=== PATIENT | male | born 1945 | race Caucasian/White ===

== ENCOUNTER 2016-10-12 22:17 | Emergency (ER) | payer SELFPAY ==
[2016-10-12 22:20] VITALS: BP 140/65; PULSE 96; RESP 18; TEMP 98.2; O2SAT 94
== END 2016-10-12 22:30 | disposition left against medical advice (07) ==
LOC: NED 22:17
DX: R50.9 Fever, unspecified (principal); Z53.21 Procedure and treatment not carried out due to patient leaving prior to being seen by health care provider
CPT/HCPCS: 99281

== ENCOUNTER → 2016-11-03 | Day surgery (SDC) | payer MEDICARE ==
[~2016-11-03] MED LIST: ATRO1SOL11 RIGHT EYE; ATROPINE SULFATE 1% OPHT SOLN 2 ML BTL ONE; DEXAMETHASONE SOD PHOS 4 MG/ML VIAL ONE; DOCU1CAP39 PO; EPINEPHrine HCL (1:1000) 1 MG/ML VIAL ONE; EPLE25TA PO; ESCI20TA PO; FLURBIPROFEN 0.03% OPHT SOLN 2.5 ML BTL ONE; IPRASOL NEB; LACTATED RINGER'S 1000 ML INJ 1,000 ML ONE; LEVA750T PO; LORA-361 PO; MIDAZOLAM HCL 2 MG/2 ML VIAL ONE; MONT5CHW2 CHEW; MORP1TAB24 PO; MS C30TA PO; MSIR15 PO; NEOMYCIN/POLYMYXIN/DEXAMETHASONE OPTH OINT 3.5 GM TUBE ONE; ONDANSETRON HCL 4 MG/2 ML VIAL IV PUSH ONE; PHENYLEPHRINE HCL 2.5% OPTH SOLN 2 ML BTL ONE; PRED10 PO; PROPOFOL 200 MG/20 ML AMP IV ONE; SODIUM CHLORIDE 0.9% INJ 10 ML ONE; TETRACAINE 0.5% OPTH SOLN 4 ML BTL ONE; TORS20TA PO; TRIAMCINOLONE ACETONIDE 40 MG/ML VIAL ONE; TROPICAMIDE 1% OPHT SOLN 15 ML BTL ONE; [UNRECOGNIZED DRUG - CODE] PO; ceFAZolin INJ 1,000 MG VIAL ONE
--- NOTE | 2017-01-28 20:06 | MP ---
cc: ALEXANDER PRADO MD DATE OF SURGERY: 11/08/2016. PREOPERATIVE DIAGNOSIS: Retinal detachment, right eye. POSTOPERATIVE DIAGNOSIS: Retinal detachment, right eye. OPERATION: Pars plana vitrectomy, membrane peeling, endolaser gas/fluid exchange, right eye. SURGEON: Alexander Prado MD ANESTHESIA: MAC. COMPLICATIONS: None. DESCRIPTION OF THE PROCEDURE IN DETAIL: After informed consent was obtained, the patient was given retrobulbar anesthesia. The patient was then brought to the operating room and prepared and draped in the usual sterile fashion. A wire lid speculum was placed in the patient's right eye. 23-gauge vitrectomy cannulas were then placed in the lower temporal, superotemporal and supranasal quadrants 3 mm posterior to the corneoscleral limbus. An infusion cannula was placed lower temporally. Core vitrectomy was then performed. There was already a posterior vitreous detachment. A vitrectomy was carried out as far as possible to the vitreous base taking care to remove vitreous from around the retinal break. A complete air-fluid exchange was then performed through a posterior retinotomy. The retina flattened nicely. Endolaser was used to treat the retinal breaks as well as the vitreous base for 360 degrees and the retinotomy. The air was then exchanged for a 16% C3F8. The three vitrectomy cannulas were then removed. Subconjunctival injections of dexamethasone and Ancef were placed. An Atropine drop, Maxitrol and a patch and shield were then applied. The patient tolerated the procedure well. There were no complications. He will position appropriately over the next week. [facility]. Alexander Prado MD TAB/JCC /11:27 AM /8:04 PM
== END | disposition home or self-care (01) ==
LOC: ESDC 06:01
PROVIDERS: ATTEND Ophthalmology Retina Specialist
DX: H33.011 Retinal detachment with single break, right eye (principal)
CPT/HCPCS: 00145; 67108; J0171; J0690; J1100; J2250; J2405; J3010; J7120; J3301

== ENCOUNTER 2016-12-01 21:00 | Inpatient (IN) | payer MEDICARE ==
[~2016-12-01] VITALS: Ht 182.9 cm; Wt 72.5 kg
[2016-12-01 21:10] VITALS: BP 135/63; PULSE 82; RESP 20; TEMP 98.1; O2SAT 89
[2016-12-01] MEDS ORDERED: SODIUM CHLOR 0.9% 1000 ML INJ 1,000 ML IV ONE (21:15)
[2016-12-01 21:16] VITALS: O2SAT 96
[2016-12-01] MEDS ORDERED: TORS20TA PO (21:22)
[2016-12-01] MEDS ORDERED: MS C30TA PO (21:22)
[2016-12-01] MEDS ORDERED: MONT5CHW2 CHEW (21:22)
[2016-12-01] MEDS ORDERED: EPLE25TA PO (21:22)
[2016-12-01] MEDS ORDERED: [UNRECOGNIZED DRUG - CODE] PO (21:22)
[2016-12-01] MEDS ORDERED: ATRO1SOL11 RIGHT EYE (21:22)
[2016-12-01] MEDS ORDERED: ESCI20TA PO (21:22)
[2016-12-01] MEDS ORDERED: PRED10 PO (21:22)
--- NOTE | 2016-12-01 21:23 | PD ---
HPI Chief Complaint: Altered Mental Status Time Seen by Provider: 21:11 Travel History International Travel<30 days: No Contact w/Intl Traveler<30days: No Traveled to known affect area: No History of Present Illness HPI 70-year-old male was brought in by his altered mental status. Patient started complaining of headache and confusion since last night. Patient started having a productive cough today. Patient states that headache is aching headache diffuse over the head. Patient denies any visual change. Patient recently had right eye surgery and has been putting atropine eyedrops to the right eye. Patient denies any chest pain or shortness of breath. Patient denies abdominal pain. Patient denies any focal weakness or numbness of extremity. Patient why states the patient fell yesterday. Patient has frequent fall recently. Patient on aspirin 81 mg daily. Patient denies history hypertension. Patient has history of diet-controlled diabetes. Patient denies any dyslipidemia. Patient has history of CAD status post CABG and aortic valve surgery. Patient has history of CHF and chronic leg swelling. Patient was advised to withhold Lasix for the past several days secondary to eye surgery. [facility] Social History Tobacco Use: No Allergies-Medications (Allergen,Severity, Reaction): Coded Allergies: Bactrim (Verified Allergy, Severe, 12/01/16) Penicillin (Verified Allergy, Severe, 12/01/16) Tramadol (Verified Allergy, Severe, 12/01/16) Reported Meds & Prescriptions Reported Meds & Active Scripts Active Reported Singulair (Montelukast Sodium) 5 Mg Chew Unknown Dose CHEW DAILY Prednisone 10 Mg Tab 10 Mg PO DAILY Torsemide 20 Mg Tab 20 Mg PO DAILY Eplerenone 25 Mg Tab 25 Mg PO DAILY Dehydroepiandrosterone Powder (Prasterone Powder) 1 Pow Pow 50 Mg PO BID Atropine Opth Drops 1% Soln 1 Drop RIGHT EYE TID Escitalopram (Escitalopram Oxalate) 20 Mg Tab 20 Mg PO DAILY Ms Contin (Morphine Sulfate) 30 Mg Tab 30 Mg PO TID Review of Systems General / Constitutional: No: Fever Eyes: No: Visual changes HENT: Positive: Headaches Cardiovascular: No: Chest Pain or Discomfort Respiratory: Positive: Cough, No: Shortness of Breath Gastrointestinal: No: Abdominal Pain Genitourinary: No: Dysuria Musculoskeletal: No: Pain Skin: No Rash Neurologic: No: Weakness Psychiatric: No: Depression Endocrine: No: Polydipsia Hematologic/Lymphatic: No: Easy Bruising Physical Exam Narrative GENERAL: Well-nourished, well-developed patient. SKIN: Warm and dry. HEAD: Normocephalic. EYES: No scleral icterus. No injection or drainage. Right pupil dilated 4 mm sluggish reactive. Left pupil 2 mm reactive. NECK: Supple, trachea midline. No JVD or lymphadenopathy. CARDIOVASCULAR: Regular rate and rhythm without murmurs, gallops, or rubs. RESPIRATORY: Breath sounds equal bilaterally. No accessory muscle use. GASTROINTESTINAL: Abdomen soft, non-tender, nondistended. MUSCULOSKELETAL: No cyanosis, or edema. BACK: Nontender without obvious deformity. No CVA tenderness. Neurologic exam: Patient's lethargic however answer questions appropriately. Patient moves all extremity. No obvious focal neurological deficit. Data Data Last Documented VS Vital Signs Date Time Temp Pulse Resp B/P Pulse Ox O2 Delivery O2 Flow Rate FiO2 12/01/16 22:07 82 18 127/62 95 Nasal Cannula 4 12/01/16 21:10 98.1 Orders Electrocardiogram (12/01/16 21:11) Complete Blood Count With Diff (12/01/16 21:11) Comprehensive Metabolic Panel (12/01/16 21:11) Creatine Kinase (Cpk) (12/01/16 21:11) Troponin I (12/01/16 21:11) B-Type Natriuretic Peptide (12/01/16 21:11) Prothrombin Time / Inr (Pt) (12/01/16 21:11) Act Partial Throm Time (Ptt) (12/01/16 21:11) Blood Culture (12/01/16 21:11) Urinalysis - C+S If Indicated (12/01/16 21:11) Thyroid Stimulating Hormone (12/01/16 21:11) Influenzae A/B Antigen (12/01/16 21:11) Chest, Single Ap (12/01/16 21:11) Ct Brain W/O Iv Contrast(Rout) (12/01/16 21:11) Iv Access Insert/Monitor (12/01/16 21:11) Ecg Monitoring (12/01/16 21:11) Oximetry (12/01/16 21:11) Urinary Catheter Insert/Apply (12/01/16 21:11) Lactic Acid (12/01/16 21:14) Sodium Chlor 0.9% 1000 Ml Inj (Ns 1000 M (12/01/16 21:15) Aztreonam Inj (Azactam Inj) (12/01/16 22:30) Vancomycin Inj (Vancomycin Inj) (12/01/16 22:30) Admit Order (Ed Use Only) (12/01/16 22:50) Labs Laboratory Tests Test 12/01/16 12/01/16 21:10 21:28 White Blood Count 9.7 TH/MM3 Red Blood Count 6.12 MIL/MM3 Hemoglobin 18.1 GM/DL Hematocrit 55.6 % Mean Corpuscular Volume 91.0 FL Mean Corpuscular Hemoglobin 29.6 PG Mean Corpuscular Hemoglobin 32.5 % Concent Red Cell Distribution Width 16.6 % Platelet Count 179 TH/MM3 Mean Platelet Volume 10.0 FL Neutrophils (%) (Auto) 77.0 % Lymphocytes (%) (Auto) 7.7 % Monocytes (%) (Auto) 11.4 % Eosinophils (%) (Auto) 3.2 % Basophils (%) (Auto) 0.7 % Neutrophils # (Auto) 7.5 TH/MM3 Lymphocytes # (Auto) 0.7 TH/MM3 Monocytes # (Auto) 1.1 TH/MM3 Eosinophils # (Auto) 0.3 TH/MM3 Basophils # (Auto) 0.1 TH/MM3 CBC Comment DIFF FINAL Differential Comment Prothrombin Time 13.7 SEC Prothromb Time International 1.2 RATIO Ratio Activated Partial 34.1 SEC Thromboplast Time Sodium Level 139 MEQ/L Potassium Level 4.1 MEQ/L Chloride Level 99 MEQ/L Carbon Dioxide Level 31.3 MEQ/L Anion Gap 9 MEQ/L Blood Urea Nitrogen 20 MG/DL Creatinine 1.53 MG/DL Estimat Glomerular Filtration 45 ML/MIN Rate Random Glucose 86 MG/DL Lactic Acid Level 1.3 mmol/L Calcium Level 9.2 MG/DL Total Bilirubin 1.2 MG/DL Aspartate Amino Transf 15 U/L (AST/SGOT) Alanine Aminotransferase 33 U/L (ALT/SGPT) Alkaline Phosphatase 95 U/L Total Creatine Kinase 88 U/L Troponin I LESS THAN 0.02 NG/ML B-Type Natriuretic Peptide 125 PG/ML Total Protein 7.8 GM/DL Albumin 3.4 GM/DL Thyroid Stimulating Hormone 3.110 uIU/ML 3rd Gen Urine Color YELLOW Urine Turbidity CLEAR Urine pH 5.0 Urine Specific [place] 1.012 Urine Protein NEG mg/dL Urine Glucose (UA) NEG mg/dL Urine Ketones NEG mg/dL Urine Occult Blood NEG Urine Nitrite NEG Urine Bilirubin NEG Urine Urobilinogen LESS THAN 2.0 MG/DL Urine Leukocyte Esterase TRACE Urine WBC 1 /hpf Urine Squamous Epithelial <1 /hpf Cells Urine Amorphous Sediment OCC Urine Hyaline Casts 1 /lpf Microscopic Urinalysis Comment CULT NOT INDICATED MDM Medical Decision Making Medical Screen Exam Complete: Yes Emergency Medical Condition: Yes Interpretation(s) EKG shows sinus rhythm with short IL interval. Nonspecific ST-T wave change. Incomplete right bundle-branch block. 22:12 PM. Last Impressions Head CT 12/01/162110 Signed Impressions: Service Date/Time: Thursday, December 01, 2016 21:37 - CONCLUSION: No acute intracranial findings. Rohit Parker MD Chest X-Ray 12/01/162110 Signed Impressions: Service Date/Time: Thursday, December 01, 2016 21:35 - CONCLUSION: Right base airspace consolidation and vascular congestion and diffuse interstitial prominence. Rohit Parker MD 22:13 PM. CBC WBC 9.7. Hemoglobin 18.1 hematocrit 55.6. 77 neutrophil. BUN 20. Creatinine 1.53. Lactic acid 1.3. INR 1.2. UA is negative. Differential Diagnosis Differential diagnosis including sepsis, dehydration, electrolyte imbalance, TIA , CVA, intracranial hemorrhage. Narrative Course 70-year-old male with altered mental status, confusion, coughing. Normal saline solution 1 L IV bolus. Patient has history CHF, we will be careful with IV fluid. Vancomycin 1 g IV. Azactam 1 g IV. Diagnosis Primary Impression: Pneumonia Qualified Code: J18.1 - Pneumonia of right lower lobe due to infectious organism Additional Impressions: Sepsis Qualified Code: A41.9 - Sepsis, due to unspecified organism Renal insufficiency Admitting Information Admitting Physician Requests: Admit Mark Aguilar MD Dec 01, 2016 21:23
[2016-12-01 21:34] LABS: AUTOMATED NEUTROPHIL # 7.5 TH/MM3 (1.8-7.7); BASOPHIL # 0.1 TH/MM3 (0-0.2); BASOPHIL % 0.7 % (0.0-2.0); EOSINOPHIL # 0.3 TH/MM3 (0-0.4); EOSINOPHIL % 3.2 % (0.0-4.0); HEMATOCRIT 55.6 % (39.0-51.0); HEMO FLAGS DIFF FINAL; LYMPH % 7.7 % (9.0-44.0); LYMPHOCYTE # 0.7 TH/MM3 (1.0-4.8); MEAN CORPUSCULAR HEMOGLOBIN 29.6 PG (27.0-34.0); MEAN CORPUSCULAR HGB CONC 32.5 % (32.0-36.0); MONO % 11.4 % (0.0-8.0); PLATELET COUNT 179 TH/MM3 (150-450); RED BLOOD COUNT 6.12 MIL/MM3 (4.50-5.90); RED CELL DISTRIBUTION WIDTH 16.6 % (11.6-17.2); WHITE BLOOD COUNT 9.7 TH/MM3 (4.0-11.0)
[2016-12-01 21:43] LABS: APTT (PATIENT) 34.1 SEC (24.3-30.1); INTERNATIONAL NORMALIZED RATIO 1.2 RATIO; PROTHROMBIN TIME - PATIENT 13.7 SEC (9.8-11.6)
[2016-12-01 21:44] LABS: ANION GAP 9 MEQ/L (5-15); AST (GOT) 15 U/L (15-37); BICARBONATE 31.3 MEQ/L (21.0-32.0); BLOOD UREA NITROGEN 20 MG/DL (7-18); CHLORIDE 99 MEQ/L (98-107); GLOMERULAR FILTRATION RATE 45 ML/MIN (>89); POTASSIUM 4.1 MEQ/L (3.5-5.1); SODIUM (NA) 139 MEQ/L (136-145)
--- NOTE | 2016-12-01 21:48 | RADRPT ---
EXAM DATE/TIME: 12/01/2016 21:35 [facility] COMPARISON: No previous studies available for comparison. INDICATIONS : SOB MEDICAL HISTORY : None. Fall. SURGICAL HISTORY : CABG. ENCOUNTER: Initial ACUITY: 1 day PAIN SCORE: 4/10 LOCATION: chest FINDINGS: There is consolidation at the right base obscured right diaphragm. Vascular congestion and interstiti al prominence is present throughout the lungs elsewhere. Cardiac contours are grossly satisfactory. T here has been previous sternotomy. CONCLUSION: Right base airspace consolidation and vascular congestion and diffuse interstitial prominence. Rohit Parker MD on December 01, 2016 at 21:46 Board Certified Radiologist. This report was verified electronically.
[2016-12-01 21:54] LABS: BLOOD, URINE NEG (NEG); COMMENT (UR) CULT NOT INDICATED; CULTURE IF INDICATED CULT NOT INDICATED; GLUCOSE,URINE NEG (NEG); HYALINE CAST, URINE 1 /lpf (RARE); KETONE, URINE NEG (NEG); NITRITE,URINE NEG (NEG); SQUAMOUS EPITHELIAL CELL URINE <1 /hpf (0-5); URINE COLOR YELLOW (YELLW/STRAW)
[2016-12-01 21:55] LABS: ALKALINE PHOSPHATASE 95 U/L (45-117); ALT (GPT) 33 U/L (12-78); TOTAL BILIRUBIN ADULT 1.2 MG/DL (0.2-1.0)
--- NOTE | 2016-12-01 21:59 | RADRPT ---
EXAM DATE/TIME: 12/01/2016 21:37 [facility] COMPARISON: No previous studies available for comparison. INDICATIONS : Altered mental status. RADIATION DOSE: 56.35 CTDIvol (mGy) MEDICAL HISTORY : Non-responsive. SURGICAL HISTORY : Non-responsive. ENCOUNTER: Initial ACUITY: 1 day PAIN SCALE: Non-responsive LOCATION: cranial TECHNIQUE: Multiple contiguous axial images were obtained of the head. Using automated exposure control and adj ustment of the mA and/or kV according to patient size, radiation dose was kept as low as reasonably a chievable to obtain optimal diagnostic quality images. FINDINGS: The ventricles are symmetric and normal. No abnormal extra-axial fluid collections are identified. Th ere is no evidence of intracranial hemorrhage or mass. There is nothing to suggest acute infarction. Chronic appearing mucosal disease in the facial sinuses. There is air in the right globe. CONCLUSION: No acute intracranial findings. Rohit Parker MD on December 01, 2016 at 21:55 Board Certified Radiologist. This report was verified electronically.
[2016-12-01 22:07] VITALS: BP 127/62; PULSE 82; RESP 18; O2SAT 95
[2016-12-01 22:16] LABS: CREATINE KINASE 88 U/L (39-308)
[2016-12-01] MEDS ORDERED: VANCOMYCIN INJ 1,000 MG in SODIUM CHLOR 0.9% 250 ML INJ 250 ML IV ONE (22:30)
[2016-12-01] MEDS ORDERED: AZTREONAM INJ 1,000 MG in SODIUM CHLORIDE 0.9% INJ 100 ML IV ONE (22:30)
[2016-12-01] MEDS ORDERED: SODIUM CHLORIDE 0.9% FLUSH 10 ML FLUSH IVF PRN (23:00)
[2016-12-01] MEDS ORDERED: ONDANSETRON HCL 4 MG/2 ML VIAL IV PRN (23:00)
[2016-12-01 23:03] VITALS: O2SAT 98
[2016-12-01] MEDS ORDERED: Vancomycin Consult Pharmacy 1 EA OTHER SCH (23:30)
--- NOTE | 2016-12-01 23:42 | HHI.HP ---
HPI Service [facility] Hospitalists Primary Care Physician Rohit Lobo M.D. Admission Diagnosis pneumonia. Sepsis. Renal insufficiency. Chief Complaint: change in mental status with congestion 2 days Travel History International Travel<30 Days: No Contact w/Intl Traveler <30 Da: No Traveled to Known Affected Are: No History of Present Illness 70-year-old male was brought in by his altered mental status. Patient started complaining of headache and confusion since last night. Patient started having a productive cough today. Patient states that headache is aching headache diffuse over the head. Patient denies any visual change. Patient recently had right eye surgery and has been putting atropine eyedrops to the right eye. Patient denies any chest pain or shortness of breath. Patient denies abdominal pain. Patient denies any focal weakness or numbness of extremity. Patient why states the patient fell yesterday. Patient has frequent fall recently. Patient on aspirin 81 mg daily. Patient denies history hypertension. Patient has history of diet-controlled diabetes. Patient denies any dyslipidemia. Patient has history of CAD status post CABG and aortic valve surgery. Patient has history of CHF and chronic leg swelling. Patient was advised to withhold Lasix for the past several days secondary to eye surgery. In er had chest xray suggesting pneumonia with some congestion bnp was normal and diuretic was on hold due to recent eye surgery. Review of Systems ROS Limitations: Altered Mental Status Respiratory: COMPLAINS OF: Cough Past Family Social History Past Medical History cad,chf,chronic edema,post tramatic stress syndrome allergies Past Surgical History cabs,aortic valve surgery Reported Medications Singulair (Montelukast Sodium) 5 Mg Chew Unknown Dose CHEW DAILY Prednisone 10 Mg Tab 10 Mg PO DAILY Torsemide 20 Mg Tab 20 Mg PO DAILY Eplerenone 25 Mg Tab 25 Mg PO DAILY Dehydroepiandrosterone Powder (Prasterone Powder) 1 Pow Pow 50 Mg PO BID Atropine Opth Drops 1% Soln 1 Drop RIGHT EYE TID Escitalopram (Escitalopram Oxalate) 20 Mg Tab 20 Mg PO DAILY Ms Contin (Morphine Sulfate) 30 Mg Tab 30 Allergies: Coded Allergies: Bactrim (Verified Allergy, Severe, 12/01/16) Penicillin (Verified Allergy, Severe, 12/01/16) Tramadol (Verified Allergy, Severe, 12/01/16) Social History NS ND Physical Exam Vital Signs Vital Signs Date Time Temp Pulse Resp B/P Pulse Ox O2 Delivery O2 Flow Rate FiO2 12/01/16 23:03 98 Nasal Cannula 4.00 12/01/16 22:07 82 18 127/62 95 Nasal Cannula 4 12/01/16 21:16 96 Nasal Cannula 3 12/01/16 21:10 98.1 82 20 135/63 89 Room Air Physical Exam GENERAL: This is a well-nourished, well-developed patient, in no apparent distress. SKIN: No rashes, ecchymoses or lesions. Cool and dry. HEAD: Atraumatic. Normocephalic. No temporal or scalp tenderness. EYES: Pupils equal round and reactive. Extraocular motions intact. No scleral icterus. No injection or drainage. ENT: Nose without bleeding, purulent drainage or septal hematoma. Throat without erythema, tonsillar hypertrophy or exudate. Uvula midline. Airway patent. NECK: Trachea midline. No JVD or lymphadenopathy. Supple, nontender, no meningeal signs. CARDIOVASCULAR: Regular rate and rhythm without murmurs, gallops, or rubs. RESPIRATORY: Decrease breath sounds slight rales bases GASTROINTESTINAL: Abdomen soft, non-tender, nondistended. No hepato-splenomegaly , or palpable masses. No guarding. MUSCULOSKELETAL: Extremities without clubbing, cyanosis, or edema. No joint tenderness, effusion, or edema noted. No calf tenderness. Negative Homans sign bilaterally. NEUROLOGICAL: Awake and alert. Cranial nerves II through XII intact. Motor and sensory grossly within normal limits. Five out of 5 muscle strength in all muscle groups. Normal speech. Laboratory Laboratory Tests Test 12/01/16 12/01/16 21:10 21:28 White Blood Count 9.7 Red Blood Count 6.12 Hemoglobin 18.1 Hematocrit 55.6 Mean Corpuscular Volume 91.0 Mean Corpuscular Hemoglobin 29.6 Mean Corpuscular Hemoglobin 32.5 Concent Red Cell Distribution Width 16.6 Platelet Count 179 Mean Platelet Volume 10.0 Neutrophils (%) (Auto) 77.0 Lymphocytes (%) (Auto) 7.7 Monocytes (%) (Auto) 11.4 Eosinophils (%) (Auto) 3.2 Basophils (%) (Auto) 0.7 Neutrophils # (Auto) 7.5 Lymphocytes # (Auto) 0.7 Monocytes # (Auto) 1.1 Eosinophils # (Auto) 0.3 Basophils # (Auto) 0.1 CBC Comment DIFF FINAL Differential Comment Prothrombin Time 13.7 Prothromb Time International 1.2 Ratio Activated Partial 34.1 Thromboplast Time Sodium Level 139 Potassium Level 4.1 Chloride Level 99 Carbon Dioxide Level 31.3 Anion Gap 9 Blood Urea Nitrogen 20 Creatinine 1.53 Estimat Glomerular Filtration 45 Rate Random Glucose 86 Lactic Acid Level 1.3 Calcium Level 9.2 Total Bilirubin 1.2 Aspartate Amino Transf 15 (AST/SGOT) Alanine Aminotransferase 33 (ALT/SGPT) Alkaline Phosphatase 95 Total Creatine Kinase 88 Troponin I LESS THAN 0.02 B-Type Natriuretic Peptide 125 Total Protein 7.8 Albumin 3.4 Thyroid Stimulating Hormone 3.110 3rd Gen Urine Color YELLOW Urine Turbidity CLEAR Urine pH 5.0 Urine Specific [place] 1.012 Urine Protein NEG Urine Glucose (UA) NEG Urine Ketones NEG Urine Occult Blood NEG Urine Nitrite NEG Urine Bilirubin NEG Urine Urobilinogen LESS THAN 2.0 Urine Leukocyte Esterase TRACE Urine WBC 1 Urine Squamous Epithelial <1 Cells Urine Amorphous Sediment OCC Urine Hyaline Casts 1 Microscopic Urinalysis Comment CULT NOT INDICATED Date/Time Procedure Status Source Growth 12/01/16 21:15 Aerobic Blood Culture Received Blood Peripheral Pending 12/01/16 21:15 Anaerobic Blood Culture Received Blood Peripheral Pending Result Diagram: 12/01/16210912/01/162109 Imaging Last [address] 12/01/162110 Signed Impressions: Service Date/Time: Thursday, December 01, 2016 21:37 - CONCLUSION: No acute intracranial findings. Rohit Parker MD Chest X-Ray 12/01/162110 Signed Impressions: Service Date/Time: Thursday, December 01, 2016 21:35 - CONCLUSION: Right base airspace consolidation and vascular congestion and diffuse interstitial prominence. Rohit Parker MD Course in er started on IV azactam and vancomycin allergic to pcn Assessment and Plan Problem List: (1) Pneumonia Status: Acute Plan: start antibiotics blood cultures ID evaluation (2) Sepsis Status: Acute Plan: by criteria blood cultures and urine ordered (3) Renal insufficiency Status: Acute Plan: mild renal insuff will follow up labs Assessment and Plan further plan as case progresses Code Status full Discussed Condition With patient Physician Certification 2 Midnight Certification Type: Admission for Inpatient Services Order for Inpatient Services The services are ordered in accordance with Medicare regulations or non- Medicare payer requirements, as applicable. In the case of services not specified as inpatient-only, they are appropriately provided as inpatient services in accordance with the 2-midnight benchmark. Estimated LOS (days): 2 2 days is the estimated time the patient will need to remain in the hospital, assuming treatment plan goals are met and no additional complications. Post-Hospital Plan: Not yet determined Problem Qualifiers (1) Pneumonia: Qualified Code: J18.1 - Pneumonia of right lower lobe due to infectious organism (2) Sepsis: Qualified Code: A41.9 - Sepsis, due to unspecified organism Raimundo Foote MD Dec 01, 2016 23:42
[2016-12-01 23:49] VITALS: BP 96/50; PULSE 87; RESP 18; O2SAT 95
[2016-12-02] VITALS (8 sets, daily range): BP systolic 90–117; BP diastolic 52–66; PULSE 75–95; RESP 17–21; TEMP 96–98.6; O2SAT 92–96
[2016-12-02] MEDS ORDERED: VANCOMYCIN 1,000 MG/NS 250 ML IV ONE ×2 (00:30)
[2016-12-02] MEDS: MORPHINE SULFATE 30 MG CONTROLLED RELEASE TAB PO SCH ×3 (05:49→22:26)
[2016-12-02 07:36] LABS: AUTOMATED NEUTROPHIL # 6.9 TH/MM3 (1.8-7.7); BASOPHIL # 0.1 TH/MM3 (0-0.2); BASOPHIL % 0.7 % (0.0-2.0); EOSINOPHIL # 0.3 TH/MM3 (0-0.4); EOSINOPHIL % 3.7 % (0.0-4.0); HEMATOCRIT 47.3 % (39.0-51.0); HEMO FLAGS DIFF FINAL; LYMPH % 6.8 % (9.0-44.0); LYMPHOCYTE # 0.6 TH/MM3 (1.0-4.8); MEAN CELL VOLUME 90.6 FL (80.0-100.0); MEAN CORPUSCULAR HEMOGLOBIN 29.5 PG (27.0-34.0); MEAN CORPUSCULAR HGB CONC 32.6 % (32.0-36.0); MONO % 12.6 % (0.0-8.0); NEUT % 76.2 % (16.0-70.0); PLATELET COUNT 155 TH/MM3 (150-450); RED BLOOD COUNT 5.23 MIL/MM3 (4.50-5.90); RED CELL DISTRIBUTION WIDTH 16.7 % (11.6-17.2); WHITE BLOOD COUNT 9.1 TH/MM3 (4.0-11.0)
[2016-12-02 08:08] LABS: BICARBONATE 30.4 MEQ/L (21.0-32.0); POTASSIUM 4.2 MEQ/L (3.5-5.1)
[2016-12-02] MEDS: SODIUM CHLORIDE 0.9% FLUSH 10 ML FLUSH IV FLUSH SCH ×2 (09:13→22:30)
[2016-12-02] MEDS: ESCITALOPRAM OXALATE 20 MG TAB PO SCH (09:14)
[2016-12-02] MEDS: EPLERENONE 25 MG TAB PO SCH (09:14)
[2016-12-02] MEDS: ATROPINE SULFATE 1% OPHT SOLN 2 ML BTL RIGHT EYE SCH ×3 (09:14→17:17)
[2016-12-02] MEDS: TORSEMIDE 20 MG TAB PO SCH (09:14)
--- NOTE | 2016-12-02 09:45 | HHI.PR ---
Subjective Remarks pt admits to cough. weakness. h/a and body aches. had recent right eye surgery. Objective Vitals somewhat lethargic. but arousable oriented to place. follows commands neck supple. heart reg lung basilar crackles abd s/nt ext chronic stasis change and 2plus edema Vital Signs Date Time Temp Pulse Resp B/P Pulse Ox O2 Delivery O2 Flow Rate FiO2 12/02/16 08:00 96.2 75 20 102/57 92 12/02/16 04:50 96.1 81 21 101/52 93 12/02/16 02:20 86 17 117/66 96 Nasal Cannula 3 12/01/16 23:49 87 18 96/50 95 Nasal Cannula 3 12/01/16 23:03 98 Nasal Cannula 4.00 12/01/16 22:07 82 18 127/62 95 Nasal Cannula 4 12/01/16 21:16 96 Nasal Cannula 3 12/01/16 21:10 98.1 82 20 135/63 89 Room Air 12/01/16 12/01/16 12/02/16 15:00 23:00 07:00 Intake Total 120 ml Output Total 650 ml Balance -530 ml Intake Oral 120 ml Output Urine Total 650 ml Result Diagram: 12/02/1616 12/02/1616 Imaging Last [address] 12/01/162110 Signed Impressions: Service Date/Time: Thursday, December 01, 2016 21:37 - CONCLUSION: No acute intracranial findings. Rohit Parker MD Chest X-Ray 12/01/162110 Signed Impressions: Service Date/Time: Thursday, December 01, 2016 21:35 - CONCLUSION: Right base airspace consolidation and vascular congestion and diffuse interstitial prominence. Rohit Parker MD A/P Problem List: (1) Altered mental status Status: Acute Plan: Pt is 70 yo presents with cough /body aches and AMS. was apparently hold diuretics for a right eye surgery. hx for cad/cabg/chf found to have simba improved today admitted last night for lung infiltrate concerning for pna. appearance could also be pulmonary edema. he was started on abx to cover CAP. his diuretics resumed resume diet this AM unclear why prednisone on his med list. ?asthma.(she is on singulair) repeat cxr in AM echo I will review cp outpt pharmacy list/echo/pft/notes (2) Pneumonia Status: Acute Plan: see above (3) CHF (congestive heart failure) Status: Chronic Plan: see above (4) CAD (coronary artery disease) Status: Chronic Plan: see above (5) SIMBA (acute kidney injury) Status: Acute Plan: see above Problem Qualifiers (1) Pneumonia: Qualified Code: J18.1 - Pneumonia of right lower lobe due to infectious organism Valentin Mas MD Dec 02, 2016 09:45
[2016-12-02] MEDS ORDERED: VANCOMYCIN INJ 1,000 MG in SODIUM CHLOR 0.9% 250 ML INJ 250 ML IV SCH (10:00)
[2016-12-02] MEDS ORDERED: LEVOFLOXACIN 500 MG TAB PO ONE (10:00)
[2016-12-02] MEDS ORDERED: AZTREONAM INJ 1,000 MG in SODIUM CHLORIDE 0.9% INJ 100 ML IV SCH (11:00)
[2016-12-02] MEDS ORDERED: VANCOMYCIN 1,000 MG/NS 250 ML IV SCH ×2 (13:00)
--- NOTE | 2016-12-02 15:52 | EKG ---
Date Performed: 12/01/2016 Time Performed: 21:13:10 PTAGE: 70 years EKG: Sinus rhythm WITH SHORT UT INTERVAL LEFT ATRIAL ENLARGEMENT INDETERMINATE AXIS INCOMPLETE RIGHT BUNDLE BRANCH BLO CK POSSIBLE RIGHT VENTRICULAR HYPERTROPHY MODERATE ST DEPRESSION ABNORMAL ECG NO PREVIOUS TRACING DOCTOR: Omar Reid Interpretating Date/Time 12/02/2016 15:48:10
--- NOTE | 2016-12-02 20:03 | EC ---
Study Study Date:12/02/2016 STUDY CONCLUSIONS SUMMARY - Left ventricle: The cavity size was normal. Wall thickness was normal. Systolic function was normal. The estimated ejection fraction was 65%. Wall motion was normal; there were no regional wall motion abnormalities. - Aortic valve: A bioprosthesis was present. - Mitral valve: Mild regurgitation. - Left atrium: The atrium was moderately dilated. - Right ventricle: The cavity size was dilated. Wall thickness was normal. RV dysfunction. - Tricuspid valve: Mild regurgitation. - Pulmonary arteries: Systolic pressure was moderately to severely increased. PA peak pressure: 70mm Hg (S). If LV function is below 40, please consider prescribing an ACEI or ARB or document rationale for non-use. PROCEDURE DATA STUDY STATUS: Elective. Procedure: Transthoracic echocardiography. Image quality was good. Scanning was performed from the parasternal, apical, and subcostal acoustic windows. Study completion: The patient tolerated the procedure well. Transthoracic echocardiography. M-mode, complete 2D, complete spectral Doppler, and color Doppler. Height: Height: 72in. Weight: Weight: 174.6lb. Body mass index: BMI: 23.7kg/m^2. Body surface area: BSA: 2.01m^2. Patient status: Inpatient. CARDIAC ANATOMY LEFT VENTRICLE: The cavity size was normal. Wall thickness was normal. Systolic function was normal. The estimated ejection fraction was 65%. Wall motion was normal; there were no regional wall motion abnormalities. AORTIC VALVE: A bioprosthesis was present. Doppler: Transvalvular velocity was within the normal range. There was no stenosis. No regurgitation. Valve area: 0.79cm^2(VTI). Indexed valve area: 0.39cm^2/m^2 (VTI). Valve area: 0.82cm^2 (Vmax). Indexed valve area: 0.41cm^2/m^2 (Vmax). Mean gradient: 25mm Hg (S). Peak gradient: 43mm Hg (S). AORTA: Aortic root: The aortic root was normal in size. MITRAL VALVE: Structurally normal valve. Doppler: Transvalvular velocity was within the normal range. There was no evidence for stenosis. Mild regurgitation. Valve area by continuity equation (using LVOT flow): 1.37cm^2. Indexed valve area by continuity equation (using LVOT flow): 0.68cm^2/m^2. Mean gradient: 3mm Hg (D). Peak gradient: 8mm Hg (D). LEFT ATRIUM: The atrium was moderately dilated. RIGHT VENTRICLE: The cavity size was dilated. Wall thickness was normal. RV dysfunction. PULMONIC VALVE: Doppler: Transvalvular velocity was within the normal range. There was no evidence for stenosis. No regurgitation. TRICUSPID VALVE: Structurally normal valve. Doppler: Transvalvular velocity was within the normal range. Mild regurgitation. PULMONARY ARTERY: The main pulmonary artery was normal-sized. Systolic pressure was moderately to severely increased. RIGHT ATRIUM: The atrium was normal in size. PERICARDIUM: There was no pericardial effusion. SYSTEMIC VEINS: Inferior vena cava: The vessel was normal in size. Patient weight: 174.6lb _Ejection fraction:_ 65-75% _Fractional shortening:_ 32% up to 5Kg 5-11.5Kg 11.6-22.9Kg 23-45Kg 45-57Kg Aortic Root 7-13 <17 13-22 17-27 17-27 LA diam 6-13 <23 24-38 33-47 37-40 RVID 10-17 7-15 7-15 7-18 8-17 LVIDd 12-22 <32 24-38 33-47 37-40 LVPW 2-4 3-6 5-7 6-8 7-8 IVS 2-4 3-6 5-7 6-8 7-8 BASIC MEASUREMENTS ADULT NORMAL Left ventricle LV internal dimension, ED, chordal *41.6 mm 43-52 level, PLAX LV internal dimension, ES, chordal 29.5 mm 23-38 level, PLAX Fractional shortening, chordal level, *29 % >29 PLAX LV posterior wall thickness, ED 10.2 mm IVS/LVPW ratio, ED 1 <1.3 Ventricular septum Septal thickness, ED 10.2 mm Aorta Root diameter, ED 26 mm Left atrium Anterior-posterior dimension 53 mm Anterior-posterior dimension index *2.64 cm/m^2 <2.2 Right ventricle RV internal dimension, ED, PLAX *45.4 mm 19-38 DOPPLER MEASUREMENTS ADULT NORMAL Main pulmonary artery Pressure, S *70 mm Hg =30 Aortic valve Peak velocity, S 316 cm/s Mean velocity, S 232 cm/s VTI, S 37.8 cm Mean gradient, S 25 mm Hg Peak gradient, S 43 mm Hg Valve area, VTI 0.79 cm^2 Valve area index, VTI 0.39 cm^2/m^2 Valve area, Vmax 0.82 cm^2 Valve area index, Vmax 0.41 cm^2/m^2 Mitral valve Peak E-wave velocity 143 cm/s Peak A-wave velocity 131 cm/s Mean velocity, D 82.3 cm/s Deceleration time *261 ms 150-230 Mean gradient, D 3 mm Hg Peak gradient, D 8 mm Hg Peak E/A ratio 1.1 Valve area, LVOT continuity 1.37 cm^2 Valve area index, LVOT continuity 0.68 cm^2/m^2 Tricuspid valve Regurgitant peak velocity 384 cm/s Peak RV-RA gradient, S 59 mm Hg Maximal regurgitant velocity 384 cm/s Systemic veins Estimated CVP 10 mm Hg Right ventricle RV pressure, S *71 mm Hg <30 Pulmonic valve Peak velocity, S 57.1 cm/s LEGEND: Mean values are shown as u=mean value. Asterisk (*) tellez values outside specified normal range. Prepared and signed by Ken Zayas [id number]
[2016-12-03] VITALS (8 sets, daily range): BP systolic 112–128; BP diastolic 56–60; PULSE 81–91; RESP 19–21; TEMP 97–98.7; O2SAT 90–92
[2016-12-03] MEDS: MORPHINE SULFATE 30 MG CONTROLLED RELEASE TAB PO SCH ×3 (05:28→21:04)
--- NOTE | 2016-12-03 06:21 | RADRPT ---
EXAM DATE/TIME: 12/03/2016 05:40 [facility] COMPARISON: CHEST SINGLE AP, December 01, 2016, 21:35. INDICATIONS : Congestion. MEDICAL HISTORY : None. SURGICAL HISTORY : None. ENCOUNTER: Subsequent ACUITY: 2 days PAIN SCORE: 5/10 LOCATION: Bilateral chest FINDINGS: A single portable frontal view of the chest shows mild cardiomegaly. Median sternotomy wires and pros thetic heart valve. Bibasilar intralobular opacities are stable to slightly worse on the prior study. Diffuse interstitial prominence noted. No discernible effusion. CONCLUSION: Stable to slight worsening of bibasilar pulmonary infiltrates. Diffuse interstitial prominence likely related to edema. This is stable. Alexander Mcgrath Jr., MD on December 03, 2016 at 6:19 Board Certified Radiologist. This report was verified electronically.
[2016-12-03 08:02] LABS: AUTOMATED NEUTROPHIL # 8.1 TH/MM3 (1.8-7.7); BASOPHIL % 0.5 % (0.0-2.0); EOSINOPHIL # 0.3 TH/MM3 (0-0.4); EOSINOPHIL % 2.6 % (0.0-4.0); HEMO FLAGS DIFF FINAL; LYMPHOCYTE # 0.5 TH/MM3 (1.0-4.8); MEAN CORPUSCULAR HEMOGLOBIN 29.3 PG (27.0-34.0); MEAN CORPUSCULAR HGB CONC 32.2 % (32.0-36.0); NEUT % 77.9 % (16.0-70.0); PLATELET COUNT 131 TH/MM3 (150-450); RED BLOOD COUNT 5.06 MIL/MM3 (4.50-5.90); RED CELL DISTRIBUTION WIDTH 16.8 % (11.6-17.2); WHITE BLOOD COUNT 10.4 TH/MM3 (4.0-11.0)
[2016-12-03 08:06] LABS: BICARBONATE 33.2 MEQ/L (21.0-32.0)
[2016-12-03] MEDS: TORSEMIDE 20 MG TAB PO SCH (09:34)
[2016-12-03] MEDS: ESCITALOPRAM OXALATE 20 MG TAB PO SCH (09:34)
[2016-12-03] MEDS: EPLERENONE 25 MG TAB PO SCH (09:34)
[2016-12-03] MEDS: LEVOFLOXACIN 500 MG TAB PO SCH (09:34)
[2016-12-03] MEDS: ATROPINE SULFATE 1% OPHT SOLN 2 ML BTL RIGHT EYE SCH ×2 (09:36→12:12)
[2016-12-03] MEDS: SODIUM CHLORIDE 0.9% FLUSH 10 ML FLUSH IV FLUSH SCH ×2 (09:37→21:00)
--- NOTE | 2016-12-03 10:15 | HHI.PR ---
Subjective Remarks somewhat confused coughing with food. Objective Vitals mild lethargy. confused with moments of more orientation. heart reg lung more right base crackles than left abd s/nt ext chronic lower ext stasis changed. brawny skin and bluish hue. but dopplerable pulses dorsalis pedis. Vital Signs Date Time Temp Pulse Resp B/P Pulse Ox O2 Delivery O2 Flow Rate FiO2 12/03/16 08:00 98.3 83 21 116/56 90 12/03/16 04:00 98.7 85 20 122/58 92 12/03/16 00:00 97.0 83 19 126/60 92 12/02/16 20:26 95 12/02/16 20:00 97.9 85 19 106/57 93 12/02/16 16:00 98.6 78 18 90/53 96 12/02/16 12:00 96.0 85 18 100/60 93 12/02/16 10:15 94 Nasal Cannula 3.00 12/02/16 12/02/16 12/03/16 15:00 23:00 07:00 Intake Total 1320 ml 120 ml 60 ml Output Total 975 ml 475 ml 350 ml Balance 345 ml -355 ml -290 ml Intake Oral 1320 ml 120 ml 60 ml Output Urine Total 975 ml 475 ml 350 ml Result Diagram: 12/03/1641 12/03/1641 Imaging Last [address] 12/01/162110 Signed Impressions: Service Date/Time: Thursday, December 01, 2016 21:37 - CONCLUSION: No acute intracranial findings. Rohit Parker MD Chest X-Ray 12/01/162110 Signed Impressions: Service Date/Time: Thursday, December 01, 2016 21:35 - CONCLUSION: Right base airspace consolidation and vascular congestion and diffuse interstitial prominence. Rohit Parker MD A/P Problem List: (1) Altered mental status Status: Acute Plan: Pt is 70 yo presents with cough /body aches and AMS. was apparently hold diuretics for a right eye surgery. hx for cad/cabg/chf. prosthetic AVR found to have simba improved today admitted for lung infiltrate concerning for pna. appearance could also be pulmonary edema. echo with nml LVF and prosthetic AVR he was started on abx to cover CAP. his diuretics resumed resume diet but now concern for aspiration. speech eval unclear why prednisone on his med list. ?asthma.(she is on singulair) ....clarify home med list... ADDENDUM: SAYS PREDNISONE WAS STARTED FOR PAIN MANAGEMENT. get ct chest to clarify inflammatory process in right lower lung... cont abx. (2) Pneumonia Status: Acute Plan: see above (3) CHF (congestive heart failure) Status: Chronic Plan: see above (4) CAD (coronary artery disease) Status: Chronic Plan: see above (5) SIMBA (acute kidney injury) Status: Acute Plan: see above Problem Qualifiers (1) Pneumonia: Qualified Code: J18.1 - Pneumonia of right lower lobe due to infectious organism Valentin Mas MD Dec 03, 2016 10:15
[2016-12-03] MEDS ORDERED: predniSONE 10 MG TAB PO ONE (11:00)
[2016-12-03] MEDS: TOBRAMYCIN 0.3%/DEXAMETHASONE 0.1% OPHT SUSP 5 ML BTL RIGHT EYE SCH ×2 (12:12→17:23)
[2016-12-03] MEDS ORDERED: PHARMACY ORDERED LAB XX ONE (12:45)
--- NOTE | 2016-12-03 20:14 | RADRPT ---
EXAM DATE/TIME: 12/03/2016 19:49 [facility] COMPARISON: No previous studies available for comparison. INDICATIONS : Shortness of breath; possible pneumonia. RADIATION DOSE: 5.74 CTDIvol (mGy) MEDICAL HISTORY : None SURGICAL HISTORY : CABG ENCOUNTER: Initial ACUITY: 1 day PAIN SCALE: 0/10 LOCATION: chest TECHNIQUE: Volumetric scanning of the chest was performed. Using automated exposure control and adjustment of t he mA and/or kV according to patient size, radiation dose was kept as low as reasonably achievable to obtain optimal diagnostic quality images. FINDINGS: There is a focal air space disease in the posterior segment left upper lobe. There is patchy basilar air space disease in both lower lobes and right middle lobe. There is also evidence for some underlyi ng pulmonary fibrosis with probable early honeycombing at the right lung base. There is basilar pleur al thickening which appears chronic with some thickening of the extrapleural fat. There is previous median sternotomy and CABG with severe coronary calcifications. No acute findings in the upper abdomen. The bony abnormality. CONCLUSION: 1. Focal airspace disease posterior segment left upper lobe and patchy airspace disease in the lower lobes most characteristic of bronchopneumonia. 2. There is also underlying basilar pulmonary fibrosis with mild honeycombing at the right lung base. Chronic basilar pleural thickening also present. 3. Coronary disease status post CABG. Pravin Gerard MD on December 03, 2016 at 20:08 Board Certified Radiologist. This report was verified electronically.
[2016-12-04] VITALS (9 sets, daily range): BP systolic 112–138; BP diastolic 58–84; PULSE 69–88; RESP 17–22; TEMP 96.9–98.8; O2SAT 18–99
[2016-12-04] MEDS: MORPHINE SULFATE 30 MG CONTROLLED RELEASE TAB PO SCH ×3 (06:05→22:28)
[2016-12-04 06:33] LABS: POTASSIUM 3.8 MEQ/L (3.5-5.1)
[2016-12-04] MEDS: SODIUM CHLORIDE 0.9% FLUSH 10 ML FLUSH IV FLUSH SCH ×2 (09:00→21:00)
[2016-12-04] MEDS: TOBRAMYCIN 0.3%/DEXAMETHASONE 0.1% OPHT SUSP 5 ML BTL RIGHT EYE SCH ×3 (09:46→18:12)
[2016-12-04] MEDS: predniSONE 10 MG TAB PO SCH (09:47)
[2016-12-04] MEDS: TORSEMIDE 20 MG TAB PO SCH (09:47)
[2016-12-04] MEDS: EPLERENONE 25 MG TAB PO SCH (09:47)
[2016-12-04] MEDS: LEVOFLOXACIN 500 MG TAB PO SCH (09:47)
[2016-12-04] MEDS: ESCITALOPRAM OXALATE 20 MG TAB PO SCH (09:47)
[2016-12-04] MEDS: ATROPINE SULFATE 1% OPHT SOLN 2 ML BTL RIGHT EYE SCH (12:00)
--- NOTE | 2016-12-04 15:39 | HHI.PR ---
Subjective Remarks Pt still quite confused. He answers some questions but appears very lethargic and quickly drifts to sleep during conversation Pt is still on 4L NC. Objective Vitals Vital Signs Date Time Temp Pulse Resp B/P Pulse Ox O2 Delivery O2 Flow Rate FiO2 12/04/16 12:00 98.8 76 22 128/71 91 12/04/16 08:00 97.6 84 20 138/84 90 12/04/16 07:54 96 Nasal Cannula 4.00 12/04/16 03:50 77 12/04/16 03:09 97.7 76 18 112/70 97 12/04/16 00:00 98.0 83 21 120/58 94 12/03/16 20:36 81 12/03/16 20:00 97.3 85 19 112/58 92 12/03/16 18:00 98.3 85 21 116/57 92 12/03/16 12/03/16 12/04/16 15:00 23:00 07:00 Intake Total 240 ml 60 ml 120 ml Output Total 1350 ml 1350 ml 350 ml Balance -1110 ml -1290 ml -230 ml Intake Oral 240 ml 60 ml 120 ml Output Urine Total 1350 ml 1350 ml 350 ml Result Diagram: 12/03/16 0641 12/04/16 0510 Other Results Laboratory Tests Test 12/03/16 12/04/16 06:41 05:10 White Blood Count 10.4 TH/MM3 Red Blood Count 5.06 MIL/MM3 Hemoglobin 14.8 GM/DL Hematocrit 46.0 % Mean Corpuscular Volume 91.0 FL Mean Corpuscular Hemoglobin 29.3 PG Mean Corpuscular Hemoglobin 32.2 % Concent Red Cell Distribution Width 16.8 % Platelet Count 131 TH/MM3 Mean Platelet Volume 11.1 FL Neutrophils (%) (Auto) 77.9 % Lymphocytes (%) (Auto) 5.0 % Monocytes (%) (Auto) 14.0 % Eosinophils (%) (Auto) 2.6 % Basophils (%) (Auto) 0.5 % Neutrophils # (Auto) 8.1 TH/MM3 Lymphocytes # (Auto) 0.5 TH/MM3 Monocytes # (Auto) 1.5 TH/MM3 Eosinophils # (Auto) 0.3 TH/MM3 Basophils # (Auto) 0.0 TH/MM3 CBC Comment DIFF FINAL Differential Comment Sodium Level 139 MEQ/L 138 MEQ/L Potassium Level 4.0 MEQ/L 3.8 MEQ/L Chloride Level 99 MEQ/L 98 MEQ/L Carbon Dioxide Level 33.2 MEQ/L 35.0 MEQ/L Anion Gap 7 MEQ/L 5 MEQ/L Blood Urea Nitrogen 17 MG/DL 15 MG/DL Creatinine 1.02 MG/DL 0.97 MG/DL Estimat Glomerular Filtration 72 ML/MIN 76 ML/MIN Rate Random Glucose 84 MG/DL 88 MG/DL Calcium Level 8.3 MG/DL 8.9 MG/DL Imaging Last Impressions Chest X-Ray 12/03/16 0600 Signed Impressions: Service Date/Time: Saturday, December 03, 2016 05:40 - CONCLUSION: Stable to slight worsening of bibasilar pulmonary infiltrates. Diffuse interstitial prominence likely related to edema. This is stable. Alexander Mcgrath Jr., MD Chest CT 12/03/16 0000 Signed Impressions: Service Date/Time: Saturday, December 03, 2016 19:49 - CONCLUSION: 1. Focal airspace disease posterior segment left upper lobe and patchy airspace disease in the lower lobes most characteristic of bronchopneumonia. 2. There is also underlying basilar pulmonary fibrosis with mild honeycombing at the right lung base. Chronic basilar pleural thickening also present. 3. Coronary disease status post CABG. Pravin Gerard MD Head CT 12/01/162110 Signed Impressions: Service Date/Time: Thursday, December 01, 2016 21:37 - CONCLUSION: No acute intracranial findings. Rohit Parker MD Last [address] 12/01/162110 Signed Impressions: Service Date/Time: Thursday, December 01, 2016 21:37 - CONCLUSION: No acute intracranial findings. Rohit Parker MD Chest X-Ray 12/01/162110 Signed Impressions: Service Date/Time: Thursday, December 01, 2016 21:35 - CONCLUSION: Right base airspace consolidation and vascular congestion and diffuse interstitial prominence. Rohit Parker MD Objective Remarks General: NAD, Lethargic Cardiac:Regular Chest: Decreased breath sounds on the right Abd: +BS, soft ND/NT Ext: Chronic lower ext stasis skin changed but dopplerable pulses on dorsalis pedis bilaterally. A/P Problem List: (1) Altered mental status Status: Acute Plan: - Pt presented with cough, body aches and AMS. - He had apparently been holding his diuretics for a right eye surgery. - He has hx of CAD s/p CABG and CHF with a prosthetic AVR - At admission he was found to have SIMBA which has improved - CXR at admission noted right base airspace consolidation and vascular congestion and diffuse interstitial prominence and there was concerning for PNA vs. possible pulmonary edema - Pt was started on Aztreonam and Vancomycin in the ED to cover CAP. - 2D echo (12/02) --> EF 65%, prosthetic AVR, mild mitral regurg, LA mildly dilated, RV dilated with RV dysfunction, PA pressure 70mmHg - His diuretics were resumed, Torsemide 20mg po daily - There was concern for aspiration as the pt was noted to be coughing while eating. - ST evaluated and recommended pureed diet with nectar thickened liquids which the pt is tolerating. - Chest CT (12/03) --> Focal airspace disease posterior segment left upper lobe and patchy airspace disease in the lower lobes most characteristic of bronchopneumonia. There is also underlying basilar pulmonary fibrosis with mild honeycombing at the right lung base. Chronic basilar pleural thickening also present. Coronary disease status post CABG. - IV Antibiotics were converted to PO Levaquin 50mmg mg daily on 12/03 - Pt still with some confusion and lethargy - Pt still requiring 4L of supplemental O2 - Start Duonebs Q4H and Q2H PRN - May need to consider stepping up steroids if no improvement - DVT prophylaxis with SCDs. (2) Pneumonia Status: Acute Plan: - See above (3) CHF (congestive heart failure) Status: Chronic Plan: - See above (4) CAD (coronary artery disease) Status: Chronic Plan: - See above (5) SIMBA (acute kidney injury) Status: Acute Plan: - See above Assessment and Plan Patient examined. Assessment and plan formulated with Marjorie Blackburn PA-C. I agree with the above. Problem Qualifiers (1) Pneumonia: Qualified Code: J18.1 - Pneumonia of right lower lobe due to infectious organism Marjorie Blackburn Dec 04, 2016 15:39 Valentin Looney DO Dec 07, 2016 22:54
[2016-12-04] MEDS ORDERED: RESP: ALBUTEROL 2.5 MG/IPRATROPIUM 0.5 MG NEB (SCH) NEB (16:00)
[2016-12-04] MEDS ORDERED: RESP: ALBUTEROL 2.5 MG/IPRATROPIUM 0.5 MG NEB (PRN) NEB (16:00)
[2016-12-04] MEDS: MAGNESIUM HYDROXIDE SUSP 30 ML CUP PO PRN (18:12)
[2016-12-04] MEDS: DOCUSATE SODIUM 100 MG CAP PO SCH ×2 (18:12→21:00)
[2016-12-05] VITALS (9 sets, daily range): BP systolic 103–143; BP diastolic 60–75; PULSE 69–98; RESP 18–22; TEMP 96.9–97.8; O2SAT 92–99
[2016-12-05] MEDS: MORPHINE SULFATE 30 MG CONTROLLED RELEASE TAB PO SCH (05:45)
[2016-12-05 06:59] LABS: AUTOMATED NEUTROPHIL # 7.8 TH/MM3 (1.8-7.7); BASOPHIL % 0.3 % (0.0-2.0); EOSINOPHIL # 0.3 TH/MM3 (0-0.4); EOSINOPHIL % 2.7 % (0.0-4.0); HEMATOCRIT 50.8 % (39.0-51.0); HEMO FLAGS DIFF FINAL; LYMPH % 5.4 % (9.0-44.0); LYMPHOCYTE # 0.5 TH/MM3 (1.0-4.8); MEAN CELL VOLUME 91.5 FL (80.0-100.0); MEAN CORPUSCULAR HEMOGLOBIN 29.8 PG (27.0-34.0); MEAN CORPUSCULAR HGB CONC 32.5 % (32.0-36.0); MONO % 14.2 % (0.0-8.0); NEUT % 77.4 % (16.0-70.0); PLATELET COUNT 131 TH/MM3 (150-450); RED BLOOD COUNT 5.55 MIL/MM3 (4.50-5.90); RED CELL DISTRIBUTION WIDTH 16.1 % (11.6-17.2); WHITE BLOOD COUNT 10.1 TH/MM3 (4.0-11.0)
[2016-12-05 07:13] LABS: BICARBONATE 39.1 MEQ/L (21.0-32.0); MAGNESIUM 2.2 MG/DL (1.5-2.5); POTASSIUM 3.7 MEQ/L (3.5-5.1)
[2016-12-05] MEDS: SODIUM CHLORIDE 0.9% FLUSH 10 ML FLUSH IV FLUSH SCH ×2 (09:00→21:00)
[2016-12-05] MEDS: predniSONE 10 MG TAB PO SCH (09:30)
[2016-12-05] MEDS: EPLERENONE 25 MG TAB PO SCH (09:30)
[2016-12-05] MEDS: LEVOFLOXACIN 500 MG TAB PO SCH (09:30)
[2016-12-05] MEDS: TORSEMIDE 20 MG TAB PO SCH (09:30)
[2016-12-05] MEDS: ESCITALOPRAM OXALATE 20 MG TAB PO SCH (09:30)
[2016-12-05] MEDS: DOCUSATE SODIUM 100 MG CAP PO SCH ×2 (09:30→21:45)
[2016-12-05] MEDS: BISACODYL EC 5 MG TABEC PO PRN (09:30)
[2016-12-05] MEDS: TOBRAMYCIN 0.3%/DEXAMETHASONE 0.1% OPHT SUSP 5 ML BTL RIGHT EYE SCH ×3 (09:31→17:00)
--- NOTE | 2016-12-05 10:55 | HHI.PR ---
Subjective Remarks Pt very confused and trying to get up out of bed this morning. He is still requiring 4L of supplemental O2 Objective Vitals Vital Signs Date Time Temp Pulse Resp B/P Pulse Ox O2 Delivery O2 Flow Rate FiO2 12/05/16 08:13 92 Nasal Cannula 4.00 12/05/16 08:00 86 12/05/16 08:00 97.0 88 22 120/74 99 12/05/16 04:00 97.7 80 18 143/73 94 12/05/16 00:00 97.5 77 18 115/75 99 12/04/16 20:25 98 Nasal Cannula 4.00 12/04/16 20:00 69 12/04/16 20:00 96.9 75 17 123/69 99 12/04/16 16:00 96.9 88 20 128/76 18 12/04/16 12:00 98.8 76 22 128/71 91 12/04/16 12/04/16 12/05/16 15:00 23:00 07:00 Intake Total 1590 ml 100 ml Output Total 1250 ml 1050 ml 300 ml Balance 340 ml -1050 ml -200 ml Intake Oral 1590 ml 100 ml Output Urine Total 1250 ml 1050 ml 300 ml Result Diagram: 12/05/16 0629 12/05/16 0629 Other Results Laboratory Tests Test 12/04/16 12/05/16 05:10 06:29 Sodium Level 138 MEQ/L 139 MEQ/L Potassium Level 3.8 MEQ/L 3.7 MEQ/L Chloride Level 98 MEQ/L 93 MEQ/L Carbon Dioxide Level 35.0 MEQ/L 39.1 MEQ/L Anion Gap 5 MEQ/L 7 MEQ/L Blood Urea Nitrogen 15 MG/DL 17 MG/DL Creatinine 0.97 MG/DL 1.00 MG/DL Estimat Glomerular Filtration 76 ML/MIN 74 ML/MIN Rate Random Glucose 88 MG/DL 95 MG/DL Calcium Level 8.9 MG/DL 8.9 MG/DL White Blood Count 10.1 TH/MM3 Red Blood Count 5.55 MIL/MM3 Hemoglobin 16.5 GM/DL Hematocrit 50.8 % Mean Corpuscular Volume 91.5 FL Mean Corpuscular Hemoglobin 29.8 PG Mean Corpuscular Hemoglobin 32.5 % Concent Red Cell Distribution Width 16.1 % Platelet Count 131 TH/MM3 Mean Platelet Volume 10.3 FL Neutrophils (%) (Auto) 77.4 % Lymphocytes (%) (Auto) 5.4 % Monocytes (%) (Auto) 14.2 % Eosinophils (%) (Auto) 2.7 % Basophils (%) (Auto) 0.3 % Neutrophils # (Auto) 7.8 TH/MM3 Lymphocytes # (Auto) 0.5 TH/MM3 Monocytes # (Auto) 1.4 TH/MM3 Eosinophils # (Auto) 0.3 TH/MM3 Basophils # (Auto) 0.0 TH/MM3 CBC Comment DIFF FINAL Differential Comment Magnesium Level 2.2 MG/DL Imaging Last Impressions Chest X-Ray 12/03/16 0600 Signed Impressions: Service Date/Time: Saturday, December 03, 2016 05:40 - CONCLUSION: Stable to slight worsening of bibasilar pulmonary infiltrates. Diffuse interstitial prominence likely related to edema. This is stable. Alexander Mcgrath Jr., MD Chest CT 12/03/16 0000 Signed Impressions: Service Date/Time: Saturday, December 03, 2016 19:49 - CONCLUSION: 1. Focal airspace disease posterior segment left upper lobe and patchy airspace disease in the lower lobes most characteristic of bronchopneumonia. 2. There is also underlying basilar pulmonary fibrosis with mild honeycombing at the right lung base. Chronic basilar pleural thickening also present. 3. Coronary disease status post CABG. Pravin Gerard MD Head CT 12/01/162110 Signed Impressions: Service Date/Time: Thursday, December 01, 2016 21:37 - CONCLUSION: No acute intracranial findings. Rohit Parker MD Last [address] 12/01/162110 Signed Impressions: Service Date/Time: Thursday, December 01, 2016 21:37 - CONCLUSION: No acute intracranial findings. Rohit Parker MD Chest X-Ray 12/01/162110 Signed Impressions: Service Date/Time: Thursday, December 01, 2016 21:35 - CONCLUSION: Right base airspace consolidation and vascular congestion and diffuse interstitial prominence. Rohit Parker MD Objective Remarks General: NAD, Lethargic, confused Cardiac:Regular Chest: CTA bilaterally Abd: +BS, soft ND/NT Ext: Chronic lower ext stasis skin changed but dopplerable pulses on dorsalis pedis bilaterally. A/P Problem List: (1) Altered mental status Status: Acute Plan: - Pt presented with cough, body aches and AMS. - He had apparently been holding his diuretics for a right eye surgery. - He has hx of CAD s/p CABG and CHF with a prosthetic AVR - At admission he was found to have SIMBA which has improved - CXR at admission noted right base airspace consolidation and vascular congestion and diffuse interstitial prominence and there was concerning for PNA vs. possible pulmonary edema - Pt was started on Aztreonam and Vancomycin in the ED to cover CAP. - 2D echo (12/02) --> EF 65%, prosthetic AVR, mild mitral regurg, LA mildly dilated, RV dilated with RV dysfunction, PA pressure 70mmHg - His diuretics were resumed, Torsemide 20mg po daily - There was concern for aspiration as the pt was noted to be coughing while eating. - ST evaluated and recommended pureed diet with nectar thickened liquids which the pt is tolerating. - Chest CT (12/03) --> Focal airspace disease posterior segment left upper lobe and patchy airspace disease in the lower lobes most characteristic of bronchopneumonia. There is also underlying basilar pulmonary fibrosis with mild honeycombing at the right lung base. Chronic basilar pleural thickening also present. Coronary disease status post CABG. - IV Antibiotics were converted to PO Levaquin 50mmg mg daily on 12/03 - Pt still with some confusion and lethargy, its not clear what his baseline mental status is. Yesterday his expressed that he is more confused than baseline but couldn't really expound on how functional he is on a normal basis. - Pt still requiring 4L of supplemental O2, try to wean down to 2L today - Pts lungs are clear on examination - Pt was only given one Duoneb treatment this morning. Duonebs Q6H PRN. - Head CT at admission was negative for any acute changes. - Pts states that he will not go to any rehab as he has refused in the past but pt is not very steady on his feet and is a significant fall risk especially with this confusion. - Check TSH/Free T4, Ammonia, RPR, B12, Folate. - Pts reports that the pt had started Valium around 10 days to 2 weeks ago and was taking 5mg 4 times per day. She felt that the confusion started after he started taking the Valium. This was stopped at admission. - No reported alcohol use at all per the pts . - DVT prophylaxis with SCDs. (2) Pneumonia Status: Acute Plan: - See above (3) CHF (congestive heart failure) Status: Chronic Plan: - See above (4) CAD (coronary artery disease) Status: Chronic Plan: - See above (5) SIMBA (acute kidney injury) Status: Acute Plan: - See above Assessment and Plan Patient examined. Assessment and plan formulated with Marjorie Blackburn PA-C. I agree with the above. Problem Qualifiers (1) Pneumonia: Qualified Code: J18.1 - Pneumonia of right lower lobe due to infectious organism Marjorie Blackburn Dec 05, 2016 10:55 Valentin Looney DO Dec 07, 2016 22:54
[2016-12-05] MEDS: ATROPINE SULFATE 1% OPHT SOLN 2 ML BTL RIGHT EYE SCH (12:00)
[2016-12-05] MEDS ORDERED: methylPREDNISolone SOD SUCC 40 MG/1 ML VIAL IV PUSH SCH (12:00)
[2016-12-05 12:47] LABS: FREE T4 1.33 NG/DL (0.76-1.46)
[2016-12-05] MEDS: MORPHINE SULFATE 15 MG CONTROLLED RELEASE TAB PO SCH ×2 (13:46→21:45)
[2016-12-05] MEDS ORDERED: RESP: ALBUTEROL 2.5 MG/IPRATROPIUM 0.5 MG NEB (PRN) NEB (16:00)
[2016-12-05] MEDS ORDERED: 1/2 NS + KCL 20 MEQ INJ 1,000 ML IV SCH (16:15)
--- NOTE | 2016-12-05 16:31 | MB ---
cc: MAUREEN SAHNI M.D. Primary care physician DATE OF CONSULTATION: 12/05/2016 DATE OF : 1945, 70 REASON FOR CONSULTATION Change in mental status. [place] that the Rohit's him on the 80s his primary care. The patient is a 70-year-old man history is taken by chart brought in by his for change in mental status started having some confusion and was thought that it was from not getting his medication apparently was prescribed some morphine and some , the was too expensive, the patient was then prescribed tramadol which he can't take because it makes him sick. Apparently he had some old diazepam in the house which he was taking, and became confused. Subsequently went to his primary care on Sunday, he was better and then by Sunday he became confused. Again, and hence his had brought him to the hospital. He is having ongoing confusion not following commands mostly, agitation. Looks like he is having some delirium. PAST MEDICAL HISTORY: 1. The patient has a history of heart disease. 2. Coronary artery bypass graft X1 3. Aortic valve replacement a few years ago in [place] bovine valve. 4. He had also chronic leg swelling was given Lasix. HOME MEDICATIONS: His home medicines are 1. Singulair 2. Prednisone 3. torsemide 4. Eplerenone 5. Prasterone powder 6. Atropine drops. 7. Citalopram 8. Morphine. ALLERGIES BACTRIM PENICILLIN TRAMADOL SOCIAL HISTORY Does not smoke, does not drink. . PHYSICAL EXAMINATION: VITAL SIGNS on exam vitals he has been afebrile since admission his current Temperature is 97, heart rate 86, respiratory rate 22, blood pressure 120/74 satting at 92% on 4 liters. per nursing he has been in sinus rhythm. NECK: Neck he will not allow me to bed that he states that hurts his states that he has chronic spinal. Cervical spine stenosis and chronic pain in his neck and back. NEUROLOGIC: His pupils reactive. His face is symmetrical. His speech is nonsensical mumbling he is not oriented. He does squeeze both hands on command, however and wiggle his toes for me but will not allow me to lift both legs and have him lift them against gravity. Does not follow cerebellar, gait cannot be assessed. LABORATORY DATA RPR is pending. His urine is unremarkable Chemistries BNP 125, B12 is 908, creatinine is 1.08, GFR 67, BUN 19. CBC really except his platelets unremarkable 131,000. Microbiology negative for flu A and B no growth. Blood cultures IMAGING STUDIES CT head no acute findings. His chest CT shows focal air space disease posterior segment left upper lobe patchy air space disease in the lower lobes looking like a bronchopneumonia also underlying basilar pulmonary fibrosis and mild honeycombing the right lung. Chronic basilar pleural thickening also coronary artery status post coronary artery bypass graft. He had a 2-D echo with an EF of 65%. Prosthetic AVR mild mitral regurgitation with mildly dilated RV dilated with RV dysfunction. PA pressure 70 mmHg. IMPRESSION/PLAN Altered mental status. EEG was completed today. Will get that official report at some point in time I think we should go ahead if he does not improve and get a MRI of the brain to make sure he has not had any micro emboli. He is pending and thyroid panel, ammonia, rapid plasma reagin, If not done so please let us get that looked and continue his DuoNeb's. He still requires quite a bit of oxygen. Should consider, certainly an ABG to make sure he is not retaining CO2. That could be possibly a culprit to his confusion. Current antibiotics; Levofloxacin will be continued eye drops, antibiotics that he has been taking at home are continued. His Lexapro was continued, he is on torsemide. He is also on morphine. I will continue to monitor his neuro status. seeing if he improves and make further recommendations accordingly. Thank you MD RAYMOND Sims/femi /1:50 PM /3:51 PM
[2016-12-05 21:09] LABS: BLOOD GAS BASE EXCESS 11.9 mmol/L (-2-2); BLOOD GAS CARBOXYHEMOGLOBIN 1.9 % (0-4); BLOOD GAS HCO3 37 mmol/L (22-26); BLOOD GAS METHEMOGLOBIN 1.1 % (0-2); BLOOD GAS OXYGEN CONTENT 21.6 Vol % (12.0-20.0); BLOOD GAS PCO2 54 mmHg (38-42); BLOOD GAS PO2 71 mmHg (61-120); BLOOD GAS TOTAL HGB 16.9 G/DL (12.0-16.0); TEMP CORR TO 98.6
[2016-12-05 21:10] LABS: CRITICAL VALUE YES; DRAW SITE LT RADIAL; LITER FLOW 2 L/M; NUMBER OF ARTERIAL PUNCTURES 1; OXYGEN DEVICE NASAL CANNULA
[2016-12-05 21:12] LABS: STAT YES; ULNAR PULSE PRESENT
[2016-12-05 21:13] LABS: BLOOD GAS O2 HGB SATURATION 91 % (90-100)
--- NOTE | 2016-12-05 21:39 | RADRPT ---
EXAM DATE/TIME: 12/05/2016 19:34 [facility] COMPARISON: CT BRAIN W/O CONTRAST, December 01, 2016, 21:37. INDICATIONS : Confusion. Lethargic. MEDICAL HISTORY : Cardiovascular disease Congestive heart failure. PTSD. SURGICAL HISTORY : CABG ENCOUNTER: Subsequent ACUITY: 2 day PAIN SCORE: 0/10 LOCATION: head. TECHNIQUE: Multiplanar, multisequence MRI of the brain was performed without contrast. FINDINGS: CEREBRUM: Mild cerebral atrophy is noted. No evidence of midline shift, mass lesion, hemorrhage or acute infarc tion. No extraaxial fluid collections are seen. The pituitary gland and suprasellar cistern are nor mal in configuration. WHITE MATTER: Moderate periventricular white matter small vessel ischemic changes are noted bilaterally. POSTERIOR FOSSA: The cerebellum and brainstem are intact. The 4th ventricle is midline. The cerebellopontine angle is unremarkable. The cerebellar tonsils are normal in position. DIFFUSION IMAGING: No focal areas of restricted diffusion are seen. No evidence of acute infarction. EXTRACRANIAL: Mucosal thickening is noted within left maxillary and ethmoid sinuses. Air is again noted within the right lobe. There is significant spinal stenosis at C3-4 which is incompletely evaluated on this exam ination. CONCLUSION: 1. Moderate periventricular white matter small vessel ischemic changes bilaterally. 2. Mild cerebral atrophy. 3. Air within the right globe. 4. No acute infarct, acute hemorrhage, mass effect or extra axial fluid collections. 5. Mucosal thickening within the left maxillary and ethmoid sinuses. 6. Significant spinal stenosis at C3-4 which is incompletely evaluated on this examination. Joseph Mendosa MD on December 05, 2016 at 21:33 Board Certified Radiologist. This report was verified electronically.
[2016-12-06] VITALS (10 sets, daily range): BP systolic 102–156; BP diastolic 55–88; PULSE 70–110; RESP 17–20; TEMP 96.2–98.7; O2SAT 91–97
--- NOTE | 2016-12-06 00:13 | MG ---
cc: KHANG BLANCO M.D. Sex: M [id number] HISTORY: Hyperventilation was omitted. The patient had a hard time relaxing. Change in mental status. PTSD, CABG. MEDICATIONS: Prednisone Morphine. DESCRIPTION: A lot of bifrontal muscle artifact is noted. The recording overall is synchronous and symmetric. Some alpha and theta waves were seen diffusely. No epileptiform or seizure activity is seen. No hemisphere asymmetry is noted. Photic stimulation is performed without significant posterior driving. IMPRESSION Diffuse mild theta slowing consistent with a mild diffuse encephalopathy but no focal abnormalities were noted. No seizure activity was seen. MD MACARENA Sommer/BRENTON /11:39 PM /12:01 AM
[2016-12-06] MEDS: MORPHINE SULFATE 15 MG CONTROLLED RELEASE TAB PO SCH ×3 (04:58→19:58)
[2016-12-06] MEDS: MAGNESIUM HYDROXIDE SUSP 30 ML CUP PO PRN (08:15)
[2016-12-06] MEDS: TORSEMIDE 20 MG TAB PO SCH (08:18)
[2016-12-06] MEDS: ESCITALOPRAM OXALATE 20 MG TAB PO SCH (08:18)
[2016-12-06] MEDS: EPLERENONE 25 MG TAB PO SCH (08:18)
[2016-12-06] MEDS: DOCUSATE SODIUM 100 MG CAP PO SCH ×2 (08:18→19:57)
[2016-12-06] MEDS: LEVOFLOXACIN 500 MG TAB PO SCH (08:18)
[2016-12-06] MEDS: SODIUM CHLORIDE 0.9% FLUSH 10 ML FLUSH IV FLUSH SCH ×2 (08:19→19:58)
[2016-12-06] MEDS: TOBRAMYCIN 0.3%/DEXAMETHASONE 0.1% OPHT SUSP 5 ML BTL RIGHT EYE SCH ×3 (08:19→16:42)
[2016-12-06] MEDS: ATROPINE SULFATE 1% OPHT SOLN 2 ML BTL RIGHT EYE SCH (12:00)
[2016-12-06] MEDS: SOD PHOSPHATE/SOD BIPHOSPHATE (ADULT) ENEMA 133ML PR PRN (13:46)
[2016-12-06] MEDS: BISACODYL EC 5 MG TABEC PO PRN (14:05)
--- NOTE | 2016-12-06 14:34 | HHI.PR ---
Subjective Remarks Pt more alert and oriented today with decrease in his scheduled Morphine dose. Pt complains of constipation. He was given Colace and MOM and then had a Fleet enema today. He had a small soft stool. Pt has been saturating well on 2L of supplemental O2 via NC today but the NC was drying out his nose and causing some nose bleeding so he was switched to simple mask but this is simply for comfort Objective Vitals Vital Signs Date Time Temp Pulse Resp B/P Pulse Ox O2 Delivery O2 Flow Rate FiO2 12/06/16 13:13 97 Simple Mask 5.00 12/06/16 11:06 92 Nasal Cannula 2.00 12/06/16 08:35 78 12/06/16 07:50 97.0 78 20 133/76 92 12/06/16 04:00 97.1 70 18 107/55 96 12/06/16 00:00 97.1 79 18 106/56 96 12/05/16 20:00 97.8 91 18 117/60 94 12/05/16 17:54 92 Nasal Cannula 4.00 12/05/16 16:00 97.0 90 22 103/69 92 12/05/16 15:00 72 12/05/16 12/05/16 12/06/16 15:00 23:00 07:00 Intake Total 600 ml Output Total 600 ml 700 ml Balance 0 ml -700 ml Intake Oral 600 ml Output Urine Total 600 ml 700 ml # Bowel Movements 0 Result Diagram: 12/05/16 0629 12/05/16 06 Other Results Laboratory Tests Test 12/05/16 12/05/16 12/05/16 06:29 11:40 20:55 White Blood Count 10.1 TH/MM3 Red Blood Count 5.55 MIL/MM3 Hemoglobin 16.5 GM/DL Hematocrit 50.8 % Mean Corpuscular Volume 91.5 FL Mean Corpuscular Hemoglobin 29.8 PG Mean Corpuscular Hemoglobin 32.5 % Concent Red Cell Distribution Width 16.1 % Platelet Count 131 TH/MM3 Mean Platelet Volume 10.3 FL Neutrophils (%) (Auto) 77.4 % Lymphocytes (%) (Auto) 5.4 % Monocytes (%) (Auto) 14.2 % Eosinophils (%) (Auto) 2.7 % Basophils (%) (Auto) 0.3 % Neutrophils # (Auto) 7.8 TH/MM3 Lymphocytes # (Auto) 0.5 TH/MM3 Monocytes # (Auto) 1.4 TH/MM3 Eosinophils # (Auto) 0.3 TH/MM3 Basophils # (Auto) 0.0 TH/MM3 CBC Comment DIFF FINAL Differential Comment Sodium Level 139 MEQ/L Potassium Level 3.7 MEQ/L Chloride Level 93 MEQ/L Carbon Dioxide Level 39.1 MEQ/L Anion Gap 7 MEQ/L Blood Urea Nitrogen 17 MG/DL Creatinine 1.00 MG/DL Estimat Glomerular Filtration 74 ML/MIN Rate Random Glucose 95 MG/DL Calcium Level 8.9 MG/DL Magnesium Level 2.2 MG/DL Ammonia LESS THAN 10 MCMOL/L Vitamin B12 Level 908 PG/ML Folate 7.6 NG/ML Free Thyroxine 1.33 NG/DL Thyroid Stimulating Hormone 4.300 uIU/ML 3rd Gen Blood Gas Puncture Site LT RADIAL Blood Gas Patient Temperature 98.6 Blood Gas HCO3 37 mmol/L Blood Gas Base Excess 11.9 mmol/L Blood Gas Oxygen Saturation 91 % Arterial Blood pH 7.45 Arterial Blood Partial 54 mmHg Pressure CO2 Arterial Blood Partial 71 mmHg Pressure O2 Arterial Blood Oxygen Content 21.6 Vol % Arterial Blood 1.9 % Carboxyhemoglobin Arterial Blood Methemoglobin 1.1 % Blood Gas Hemoglobin 16.9 G/DL Oxygen Delivery Device NASAL CANNULA Blood Gas Liter Flow 2 L/M Imaging Last Impressions Brain MRI 12/05/16 0000 Signed Impressions: Service Date/Time: Monday, December 05, 2016 19:34 - CONCLUSION: 1. Moderate periventricular white matter small vessel ischemic changes bilaterally. 2. Mild cerebral atrophy. 3. Air within the right globe. 4. No acute infarct, acute hemorrhage, mass effect or extra axial fluid collections. 5. Mucosal thickening within the left maxillary and ethmoid sinuses. 6. Significant spinal stenosis at C3-4 which is incompletely evaluated on this examination. Joseph Mendosa MD Chest X-Ray 12/03/16 0600 Signed Impressions: Service Date/Time: Saturday, December 03, 2016 05:40 - CONCLUSION: Stable to slight worsening of bibasilar pulmonary infiltrates. Diffuse interstitial prominence likely related to edema. This is stable. Alexander Mcgrath Jr., MD Chest CT 12/03/16 0000 Signed Impressions: Service Date/Time: Saturday, December 03, 2016 19:49 - CONCLUSION: 1. Focal airspace disease posterior segment left upper lobe and patchy airspace disease in the lower lobes most characteristic of bronchopneumonia. 2. There is also underlying basilar pulmonary fibrosis with mild honeycombing at the right lung base. Chronic basilar pleural thickening also present. 3. Coronary disease status post CABG. Pravin Gerard MD Head CT 12/01/162110 Signed Impressions: Service Date/Time: Thursday, December 01, 2016 21:37 - CONCLUSION: No acute intracranial findings. Rohit Parker MD Last Impressions Chest X-Ray 12/03/16 0600 Signed Impressions: Service Date/Time: Saturday, December 03, 2016 05:40 - CONCLUSION: Stable to slight worsening of bibasilar pulmonary infiltrates. Diffuse interstitial prominence likely related to edema. This is stable. Alexander Mcgrath Jr., MD Chest CT 12/03/16 0000 Signed Impressions: Service Date/Time: Saturday, December 03, 2016 19:49 - CONCLUSION: 1. Focal airspace disease posterior segment left upper lobe and patchy airspace disease in the lower lobes most characteristic of bronchopneumonia. 2. There is also underlying basilar pulmonary fibrosis with mild honeycombing at the right lung base. Chronic basilar pleural thickening also present. 3. Coronary disease status post CABG. Pravin Gerard MD Head CT 12/01/162110 Signed Impressions: Service Date/Time: Thursday, December 01, 2016 21:37 - CONCLUSION: No acute intracranial findings. Rohit Parker MD Last [address] 12/01/162110 Signed Impressions: Service Date/Time: Thursday, December 01, 2016 21:37 - CONCLUSION: No acute intracranial findings. Rohit Parker MD Chest X-Ray 12/01/162110 Signed Impressions: Service Date/Time: Thursday, December 01, 2016 21:35 - CONCLUSION: Right base airspace consolidation and vascular congestion and diffuse interstitial prominence. Rohit Parker MD Objective Remarks General: NAD, AAOx3 Cardiac:Regular Chest: CTA bilaterally Abd: +BS, soft ND/NT Ext: Chronic lower ext stasis skin changed but dopplerable pulses on dorsalis pedis bilaterally. A/P Problem List: (1) Altered mental status Status: Acute Plan: - Pt presented with cough, body aches and AMS. - He had apparently been holding his diuretics for a right eye surgery. - He has hx of CAD s/p CABG and CHF with a prosthetic AVR - At admission he was found to have SIMBA which has improved - CXR at admission noted right base airspace consolidation and vascular congestion and diffuse interstitial prominence and there was concerning for PNA vs. possible pulmonary edema - Pt was started on Aztreonam and Vancomycin in the ED to cover CAP. - 2D echo (12/02) --> EF 65%, prosthetic AVR, mild mitral regurg, LA mildly dilated, RV dilated with RV dysfunction, PA pressure 70mmHg - His diuretics were resumed, Torsemide 20mg po daily - There was concern for aspiration as the pt was noted to be coughing while eating. - ST evaluated and recommended pureed diet with nectar thickened liquids which the pt is tolerating. - Chest CT (12/03) --> Focal airspace disease posterior segment left upper lobe and patchy airspace disease in the lower lobes most characteristic of bronchopneumonia. There is also underlying basilar pulmonary fibrosis with mild honeycombing at the right lung base. Chronic basilar pleural thickening also present. Coronary disease status post CABG. - IV Antibiotics were converted to PO Levaquin 50mmg mg daily on 12/03 - Pt much more alert and oriented today. - Head CT at admission was negative for any acute changes. - Pts states that he will not go to any rehab as he has refused in the past but pt is not very steady on his feet and is a significant fall risk especially with this confusion. - Ammonia, RPR, B12, Folate were WNL - TSH 4.300/Free T4 1.33 - Pts reports that the pt had started Valium around 10 days to 2 weeks prior to admission and was taking 5mg 4 times per day. She felt that the confusion started after he started taking the Valium. This was stopped at admission. - No reported alcohol use at all per the pts . - Neurology was consulted - EEG with diffuse mild theta slowing consistent with a mild diffuse encephalopathy. - MRI Brain (12/06) --> Moderate periventricular white matter small vessel ischemic changes bilaterally. Mild cerebral atrophy. Air within the right globe. No acute infarct, acute hemorrhage, mass effect or extra axial fluid collections. Mucosal thickening within the left maxillary and ethmoid sinuses. Significant spinal stenosis at C3-4 which is incompletely evaluated on this examination. - Pts Morphine dose was decreased from 30mg TID to 15mg Q8H and pt did become more alert and with it today. - Pt complains of some constipation. - Get KUB - DVT prophylaxis with SCDs. (2) Pneumonia Status: Acute Plan: - See above (3) CHF (congestive heart failure) Status: Chronic Plan: - See above (4) CAD (coronary artery disease) Status: Chronic Plan: - See above (5) SIMBA (acute kidney injury) Status: Acute Plan: - See above Assessment and Plan Patient examined. Assessment and plan formulated with Marjorie Blackburn PA-C. I agree with the above. Problem Qualifiers (1) Pneumonia: Qualified Code: J18.1 - Pneumonia of right lower lobe due to infectious organism Marjorie Blackburn Dec 06, 2016 14:34 Valentin Looney DO Dec 07, 2016 22:55
[2016-12-07] VITALS (8 sets, daily range): BP systolic 104–158; BP diastolic 55–95; PULSE 83–89; RESP 17–20; TEMP 96.1–97.8; O2SAT 92–96
[2016-12-07 05:44] LABS: BLOOD GAS BASE EXCESS 11.1 mmol/L (-2-2); BLOOD GAS HCO3 36 mmol/L (22-26); BLOOD GAS METHEMOGLOBIN 0.7 % (0-2); BLOOD GAS O2 HGB SATURATION 93 % (90-100); BLOOD GAS OXYGEN CONTENT 22.7 Vol % (12.0-20.0); BLOOD GAS PCO2 50 mmHg (38-42); BLOOD GAS PO2 79 mmHg (61-120); BLOOD GAS TOTAL HGB 17.3 G/DL (12.0-16.0); CRITICAL VALUE NO; OXYGEN DEVICE NASAL CANNULA; TEMP CORR TO 98.6
[2016-12-07 05:45] LABS: DRAW SITE RT BRACHIAL; LITER FLOW 4 L/M; NUMBER OF ARTERIAL PUNCTURES 2; STAT NO
[2016-12-07] MEDS: MORPHINE SULFATE 15 MG CONTROLLED RELEASE TAB PO SCH ×3 (06:00→21:25)
[2016-12-07] MEDS: DOCUSATE SODIUM 100 MG CAP PO SCH ×2 (07:59→21:24)
[2016-12-07] MEDS: LEVOFLOXACIN 500 MG TAB PO SCH (07:59)
[2016-12-07] MEDS: TORSEMIDE 20 MG TAB PO SCH (07:59)
[2016-12-07] MEDS: ESCITALOPRAM OXALATE 20 MG TAB PO SCH (07:59)
[2016-12-07] MEDS: SODIUM CHLORIDE 0.9% FLUSH 10 ML FLUSH IV FLUSH SCH ×2 (08:06→21:25)
[2016-12-07] MEDS: TOBRAMYCIN 0.3%/DEXAMETHASONE 0.1% OPHT SUSP 5 ML BTL RIGHT EYE SCH ×3 (08:07→19:26)
[2016-12-07] MEDS: EPLERENONE 25 MG TAB PO SCH (08:09)
--- NOTE | 2016-12-07 09:07 | RADRPT ---
EXAM DATE/TIME: 12/07/2016 08:17 [facility] COMPARISON: No previous studies available for comparison. INDICATIONS : Constipation. MEDICAL HISTORY : None. SURGICAL HISTORY : None. ENCOUNTER: Initial ACUITY: 4 - 6 days PAIN SCORE: 0/10 LOCATION: Abdomen. FINDINGS: There is a large amount of stool within the rectum characteristic of fecal impaction. There is mild multilevel degenerative change throughout the spine. No organomegaly is evident. No free air is ident ified. CONCLUSION: 1. Fecal impaction Mode [place] MD on December 07, 2016 at 9:05 Board Certified Radiologist. This report was verified electronically.
[2016-12-07] MEDS: MAGNESIUM HYDROXIDE SUSP 30 ML CUP PO PRN (09:13)
[2016-12-07] MEDS: BISACODYL EC 5 MG TABEC PO PRN (09:13)
--- NOTE | 2016-12-07 16:26 | HHI.PR ---
Subjective Remarks Pt reportedly had a BM today but its unclear if this was of any significant size. Pt with a noted significant fecal impaction on KUB today. Pt continues to be more alert and oriented today He is still requiring 4L of supplemental O2 Nurse reports that after he received his evening dose of Oramorph last night that he was more confused and trying to get up out of bed unassisted. Pt was not given the Oramorph this morning Objective Vitals Vital Signs Date Time Temp Pulse Resp B/P Pulse Ox O2 Delivery O2 Flow Rate FiO2 12/07/16 11:50 97.4 88 20 141/74 92 12/07/16 10:39 96 Nasal Cannula 3.00 12/07/16 07:50 96.1 89 20 158/95 95 12/07/16 04:00 97.0 85 18 110/55 92 12/07/16 00:00 96.6 88 18 114/68 96 12/06/16 20:00 97.8 86 17 102/55 95 12/06/16 17:55 97 Simple Mask 5.00 12/06/16 12/06/16 12/07/16 15:00 23:00 07:00 Intake Total 510 ml 100 ml Output Total 800 ml 100 ml Balance -290 ml -100 ml 100 ml Intake Oral 510 ml 100 ml Output Urine Total 800 ml 100 ml # Voids 1 3 # Bowel Movements 1 Result Diagram: 12/05/1662812/05/16628 Other Results Laboratory Tests Test 12/05/16 12/07/16 20:55 05:34 Blood Gas Puncture Site LT RADIAL RT BRACHIAL Blood Gas Patient Temperature 98.6 98.6 Blood Gas HCO3 37 mmol/L 36 mmol/L Blood Gas Base Excess 11.9 mmol/L 11.1 mmol/L Blood Gas Oxygen Saturation 91 % 93 % Arterial Blood pH 7.45 7.46 Arterial Blood Partial 54 mmHg 50 mmHg Pressure CO2 Arterial Blood Partial 71 mmHg 79 mmHg Pressure O2 Arterial Blood Oxygen Content 21.6 Vol % 22.7 Vol % Arterial Blood 1.9 % 2.0 % Carboxyhemoglobin Arterial Blood Methemoglobin 1.1 % 0.7 % Blood Gas Hemoglobin 16.9 G/DL 17.3 G/DL Oxygen Delivery Device NASAL CANNULA NASAL CANNULA Blood Gas Liter Flow 2 L/M 4 L/M Imaging Last Impressions Abdomen X-Ray 12/07/16 0800 Signed Impressions: Service Date/Time: November 08:17 - CONCLUSION: 1. Fecal impaction Mode [place] MD Brain MRI 12/05/16 0000 Signed Impressions: Service Date/Time: Monday, December 05, 2016 19:34 - CONCLUSION: 1. Moderate periventricular white matter small vessel ischemic changes bilaterally. 2. Mild cerebral atrophy. 3. Air within the right globe. 4. No acute infarct, acute hemorrhage, mass effect or extra axial fluid collections. 5. Mucosal thickening within the left maxillary and ethmoid sinuses. 6. Significant spinal stenosis at C3-4 which is incompletely evaluated on this examination. Joseph Mendosa MD Chest X-Ray 12/03/16 0600 Signed Impressions: Service Date/Time: Saturday, December 03, 2016 05:40 - CONCLUSION: Stable to slight worsening of bibasilar pulmonary infiltrates. Diffuse interstitial prominence likely related to edema. This is stable. Alexander Mcgrath Jr., MD Chest CT 12/03/16 0000 Signed Impressions: Service Date/Time: Saturday, December 03, 2016 19:49 - CONCLUSION: 1. Focal airspace disease posterior segment left upper lobe and patchy airspace disease in the lower lobes most characteristic of bronchopneumonia. 2. There is also underlying basilar pulmonary fibrosis with mild honeycombing at the right lung base. Chronic basilar pleural thickening also present. 3. Coronary disease status post CABG. Pravin Gerard MD Head CT 12/01/161 Signed Impressions: Service Date/Time: Thursday, December 01, 2016 21:37 - CONCLUSION: No acute intracranial findings. Rohit Parker MD Last Impressions Brain MRI 12/05/16 0000 Signed Impressions: Service Date/Time: Monday, December 05, 2016 19:34 - CONCLUSION: 1. Moderate periventricular white matter small vessel ischemic changes bilaterally. 2. Mild cerebral atrophy. 3. Air within the right globe. 4. No acute infarct, acute hemorrhage, mass effect or extra axial fluid collections. 5. Mucosal thickening within the left maxillary and ethmoid sinuses. 6. Significant spinal stenosis at C3-4 which is incompletely evaluated on this examination. Joseph Mendosa MD Chest X-Ray 12/03/16 0600 Signed Impressions: Service Date/Time: Saturday, December 03, 2016 05:40 - CONCLUSION: Stable to slight worsening of bibasilar pulmonary infiltrates. Diffuse interstitial prominence likely related to edema. This is stable. Alexander Mcgrath Jr., MD Chest CT 12/03/16 0000 Signed Impressions: Service Date/Time: Saturday, December 03, 2016 19:49 - CONCLUSION: 1. Focal airspace disease posterior segment left upper lobe and patchy airspace disease in the lower lobes most characteristic of bronchopneumonia. 2. There is also underlying basilar pulmonary fibrosis with mild honeycombing at the right lung base. Chronic basilar pleural thickening also present. 3. Coronary disease status post CABG. Pravin Gerard MD Head CT 12/01/162110 Signed Impressions: Service Date/Time: Thursday, December 01, 2016 21:37 - CONCLUSION: No acute intracranial findings. Rohit Parker MD Last Impressions Chest X-Ray 12/03/16 0600 Signed Impressions: Service Date/Time: Saturday, December 03, 2016 05:40 - CONCLUSION: Stable to slight worsening of bibasilar pulmonary infiltrates. Diffuse interstitial prominence likely related to edema. This is stable. Alexander Mcgrath Jr., MD Chest CT 12/03/16 0000 Signed Impressions: Service Date/Time: Saturday, December 03, 2016 19:49 - CONCLUSION: 1. Focal airspace disease posterior segment left upper lobe and patchy airspace disease in the lower lobes most characteristic of bronchopneumonia. 2. There is also underlying basilar pulmonary fibrosis with mild honeycombing at the right lung base. Chronic basilar pleural thickening also present. 3. Coronary disease status post CABG. Pravin Gerard MD Head CT 12/01/162110 Signed Impressions: Service Date/Time: Thursday, December 01, 2016 21:37 - CONCLUSION: No acute intracranial findings. Rohit Parker MD Last [address] 12/01/162110 Signed Impressions: Service Date/Time: Thursday, December 01, 2016 21:37 - CONCLUSION: No acute intracranial findings. Rohit Parker MD Chest X-Ray 12/01/162110 Signed Impressions: Service Date/Time: Thursday, December 01, 2016 21:35 - CONCLUSION: Right base airspace consolidation and vascular congestion and diffuse interstitial prominence. Rohit Parker MD Objective Remarks General: NAD, AAOx3 Cardiac:Regular Chest: CTA bilaterally Abd: +BS, soft mildly distended, nontender Ext: Chronic lower ext stasis skin changed but dopplerable pulses on dorsalis pedis bilaterally. A/P Problem List: (1) Altered mental status Status: Acute Plan: - Pt presented with cough, body aches and AMS. - He had apparently been holding his diuretics for a right eye surgery. - He has hx of CAD s/p CABG and CHF with a prosthetic AVR - At admission he was found to have SIMBA which has improved - CXR at admission noted right base airspace consolidation and vascular congestion and diffuse interstitial prominence and there was concerning for PNA vs. possible pulmonary edema - Pt was started on Aztreonam and Vancomycin in the ED to cover CAP. - 2D echo (12/02) --> EF 65%, prosthetic AVR, mild mitral regurg, LA mildly dilated, RV dilated with RV dysfunction, PA pressure 70mmHg - His diuretics were resumed, Torsemide 20mg po daily - There was concern for aspiration as the pt was noted to be coughing while eating. - ST evaluated and recommended pureed diet with nectar thickened liquids which the pt is tolerating. - Chest CT (12/03) --> Focal airspace disease posterior segment left upper lobe and patchy airspace disease in the lower lobes most characteristic of bronchopneumonia. There is also underlying basilar pulmonary fibrosis with mild honeycombing at the right lung base. Chronic basilar pleural thickening also present. Coronary disease status post CABG. - IV Antibiotics were converted to PO Levaquin 50mmg mg daily on 12/03 - 12/07/16 - Head CT at admission was negative for any acute changes. - Ammonia, RPR, B12, Folate were WNL - TSH 4.300/Free T4 1.33 - Pts reports that the pt had started Valium around 10 days to 2 weeks prior to admission and was taking 5mg 4 times per day. She felt that the confusion started after he started taking the Valium. This was stopped at admission. - No reported alcohol use at all per the pts . - Neurology was consulted - EEG with diffuse mild theta slowing consistent with a mild diffuse encephalopathy. - MRI Brain (12/06) --> Moderate periventricular white matter small vessel ischemic changes bilaterally. Mild cerebral atrophy. Air within the right globe. No acute infarct, acute hemorrhage, mass effect or extra axial fluid collections. Mucosal thickening within the left maxillary and ethmoid sinuses. Significant spinal stenosis at C3-4 which is incompletely evaluated on this examination. - Pts Morphine dose was decreased from 30mg TID to 15mg Q8H and pt did become more alert and with it today. - Pt complains of some constipation. - KUB (12/07) --> Noted a large fecal impaction. - Pt reportedly had a BM today unclear if it was a large BM or not. - Check another KUB in AM and if still noted impaction then we will order a Gastrografin enema - We will given Mag Citrate and another Fleet enema now. - Cont. Colace/MOM/Dulcolax/Fleet enema PRN - Pt will need SNF placement at the end of this hospitalization - DVT prophylaxis with SCDs. (2) Pneumonia Status: Acute Plan: - See above (3) CHF (congestive heart failure) Status: Chronic Plan: - See above (4) CAD (coronary artery disease) Status: Chronic Plan: - See above (5) SIMBA (acute kidney injury) Status: Acute Plan: - See above Assessment and Plan Patient examined. Assessment and plan formulated with Marjorie Blackburn PA-C. I agree with the above. Problem Qualifiers (1) Pneumonia: Qualified Code: J18.1 - Pneumonia of right lower lobe due to infectious organism Marjorie Blackburn Dec 07, 2016 16:26 Valentin Looney DO Dec 07, 2016 22:55
[2016-12-07] MEDS ORDERED: SOD PHOSPHATE/SOD BIPHOSPHATE (ADULT) ENEMA 133ML RECTAL ONE (16:45)
[2016-12-07] MEDS ORDERED: MAGNESIUM CITRATE SOLN 300 ML BTL PO ONE (16:45)
[2016-12-08] VITALS (7 sets, daily range): BP systolic 99–130; BP diastolic 52–71; PULSE 68–80; RESP 16–19; TEMP 95.8–97.3; O2SAT 92–96
[2016-12-08] MEDS: MORPHINE SULFATE 15 MG CONTROLLED RELEASE TAB PO SCH ×3 (05:53→21:34)
[2016-12-08 07:30] LABS: POTASSIUM 3.9 MEQ/L (3.5-5.1)
[2016-12-08] MEDS: SODIUM CHLORIDE 0.9% FLUSH 10 ML FLUSH IV FLUSH SCH ×2 (09:00→21:00)
[2016-12-08] MEDS: ESCITALOPRAM OXALATE 20 MG TAB PO SCH (09:16)
[2016-12-08] MEDS: TORSEMIDE 20 MG TAB PO SCH (09:16)
[2016-12-08] MEDS: EPLERENONE 25 MG TAB PO SCH (09:16)
[2016-12-08] MEDS: DOCUSATE SODIUM 100 MG CAP PO SCH ×2 (09:16→21:00)
[2016-12-08] MEDS: TOBRAMYCIN 0.3%/DEXAMETHASONE 0.1% OPHT SUSP 5 ML BTL RIGHT EYE SCH ×3 (09:21→18:00)
--- NOTE | 2016-12-08 10:07 | RADRPT ---
EXAM DATE/TIME: 12/08/2016 08:37 [facility] COMPARISON: ABDOMEN KUB ONLY, December 07, 2016, 8:17. INDICATIONS : Constipation. MEDICAL HISTORY : Cardiovascular disease Congestive heart failure. PTSD. SURGICAL HISTORY : CABG. ENCOUNTER: Subsequent ACUITY: 1 week PAIN SCORE: 8/10 LOCATION: Abdomen. FINDINGS: Moderate stool is seen in the descending and sigmoid colon. This has improved from 12/07/16. There is no significant dilatation. CONCLUSION: Interval improvement with less stool. Eddie Cabrera MD FACR on December 08, 2016 at 9:55 Board Certified Radiologist. This report was verified electronically.
--- NOTE | 2016-12-08 10:08 | RADRPT ---
EXAM DATE/TIME: 12/08/2016 08:40 [facility] COMPARISON: CHEST SINGLE AP, December 03, 2016, 5:40. INDICATIONS : Pneumonia. MEDICAL HISTORY : Cardiovascular disease Congestive heart failure. PTSD. SURGICAL HISTORY : CABG. ENCOUNTER: Subsequent ACUITY: 1 week PAIN SCORE: 8/10 LOCATION: Chest FINDINGS: Heart is enlarged. Moderate interstitial edema is present. Valvular prosthesis is noted. Sternal w ires are evident. There is no pneumothorax. There is minimal blunting of [id number] costophrenic sulci. CONCLUSION: 1. Improvement with better aeration. 2. Findings suggest a persistent minimal interstitial edema. Eddie Cabrera MD FACR on December 08, 2016 at 9:56 Board Certified Radiologist. This report was verified electronically.
[2016-12-08] MEDS: SODIUM CHLOR 0.9% 1000 ML INJ 1,000 ML IV SCH (12:45)
--- NOTE | 2016-12-08 17:15 | HHI.PR ---
Subjective Remarks This is a pleasant 70 y/o Male who was brought in by his due to Acute encephalopathy, he complaint of headache, and confusion, also had productive cough, denied Chest pain, or shortness of breath, no abdominal pain, no focal weakness no numbness, he had a fall before coming to ER, as we know he has Hypertension, DM II diet controlled, CAD status post CABG, CHF by history, he is been hospitalized and given antibiotics for Pneumonia. Objective Vital Signs Date Time Temp Pulse Resp B/P Pulse Ox O2 Delivery O2 Flow Rate FiO2 12/08/16 16:00 96.0 75 16 111/71 92 12/08/16 12:00 95.8 77 18 116/71 93 12/08/16 08:00 96.9 68 16 130/65 96 12/08/16 04:00 97.1 76 17 112/65 95 12/08/16 00:00 97.3 80 17 113/68 92 12/07/16 22:25 16 12/07/16 22:09 93 Nasal Cannula 3.00 12/07/16 20:00 96.2 85 17 104/66 93 I/O 12/07/16 12/07/16 12/07/16 12/08/16 12/08/16 12/08/16 07:00 15:00 23:00 07:00 15:00 23:00 Intake Total 100 ml 460 ml 960 ml 240 ml Output Total 150 ml 100 ml Balance 100 ml 310 ml -100 ml 960 ml 240 ml Intake Oral 100 ml 460 ml 960 ml 240 ml Output Urine Total 150 ml 100 ml # Voids 3 7 1 1 2 # Bowel Movements 2 1 5 Result Diagram: 12/05/16 0629 12/08/16 0522 Imaging Last Impressions Chest X-Ray 12/08/16799 Signed Impressions: Service Date/Time: Thursday, December 08, 2016 08:40 - CONCLUSION: 1. Improvement with better aeration. 2. Findings suggest a persistent minimal interstitial edema. Eddie Cabrera MD FACR Abdomen X-Ray 12/08/16 08 Signed Impressions: Service Date/Time: Thursday, December 08, 2016 08:37 - CONCLUSION: Interval improvement with less stool. Eddie Cabrera MD FACR Brain MRI 12/05/16 0000 Signed Impressions: Service Date/Time: Monday, December 05, 2016 19:34 - CONCLUSION: 1. Moderate periventricular white matter small vessel ischemic changes bilaterally. 2. Mild cerebral atrophy. 3. Air within the right globe. 4. No acute infarct, acute hemorrhage, mass effect or extra axial fluid collections. 5. Mucosal thickening within the left maxillary and ethmoid sinuses. 6. Significant spinal stenosis at C3-4 which is incompletely evaluated on this examination. Joseph Mendosa MD Chest CT 12/03/16 0000 Signed Impressions: Service Date/Time: Saturday, December 03, 2016 19:49 - CONCLUSION: 1. Focal airspace disease posterior segment left upper lobe and patchy airspace disease in the lower lobes most characteristic of bronchopneumonia. 2. There is also underlying basilar pulmonary fibrosis with mild honeycombing at the right lung base. Chronic basilar pleural thickening also present. 3. Coronary disease status post CABG. Pravin Gerard MD Head CT 12/01/161 Signed Impressions: Service Date/Time: Thursday, December 01, 2016 21:37 - CONCLUSION: No acute intracranial findings. Rohit Parker MD Procedures No procedures performed Other Results Laboratory Tests Test 12/05/16 12/05/16 12/07/16 12/08/16 06:29 11:40 05:34 05:22 White Blood Count 10.1 TH/MM3 Red Blood Count 5.55 MIL/MM3 Hemoglobin 16.5 GM/DL Hematocrit 50.8 % Mean Corpuscular Volume 91.5 FL Mean Corpuscular Hemoglobin 29.8 PG Mean Corpuscular Hemoglobin 32.5 % Concent Red Cell Distribution Width 16.1 % Platelet Count 131 TH/MM3 Mean Platelet Volume 10.3 FL Neutrophils (%) (Auto) 77.4 % Lymphocytes (%) (Auto) 5.4 % Monocytes (%) (Auto) 14.2 % Eosinophils (%) (Auto) 2.7 % Basophils (%) (Auto) 0.3 % Neutrophils # (Auto) 7.8 TH/MM3 Lymphocytes # (Auto) 0.5 TH/MM3 Monocytes # (Auto) 1.4 TH/MM3 Eosinophils # (Auto) 0.3 TH/MM3 Basophils # (Auto) 0.0 TH/MM3 CBC Comment DIFF FINAL Differential Comment Magnesium Level 2.2 MG/DL Ammonia LESS THAN 10 MCMOL/L Vitamin B12 Level 908 PG/ML Folate 7.6 NG/ML Free Thyroxine 1.33 NG/DL Thyroid Stimulating Hormone 4.300 uIU/ML 3rd Gen Rapid Plasma Reagin NON-REACTIVE Blood Gas Puncture Site RT BRACHIAL Blood Gas Patient Temperature 98.6 Blood Gas HCO3 36 mmol/L Blood Gas Base Excess 11.1 mmol/L Blood Gas Oxygen Saturation 93 % Arterial Blood pH 7.46 Arterial Blood Partial 50 mmHg Pressure CO2 Arterial Blood Partial 79 mmHg Pressure O2 Arterial Blood Oxygen Content 22.7 Vol % Arterial Blood 2.0 % Carboxyhemoglobin Arterial Blood Methemoglobin 0.7 % Blood Gas Hemoglobin 17.3 G/DL Oxygen Delivery Device NASAL CANNULA Blood Gas Liter Flow 4 L/M Sodium Level 139 MEQ/L Potassium Level 3.9 MEQ/L Chloride Level 93 MEQ/L Carbon Dioxide Level 39.0 MEQ/L Anion Gap 7 MEQ/L Blood Urea Nitrogen 20 MG/DL Creatinine 1.16 MG/DL Estimat Glomerular Filtration 62 ML/MIN Rate Random Glucose 94 MG/DL Calcium Level 8.9 MG/DL Objective Remarks GENERAL: This is a well-nourished, well-developed patient, in no apparent distress. SKIN: No rashes, ecchymoses or lesions. Cool and dry. HEAD: Atraumatic. Normocephalic. No temporal or scalp tenderness. EYES: Pupils equal round and reactive. Extraocular motions intact. No scleral icterus. No injection or drainage. ENT: Nose without bleeding, purulent drainage or septal hematoma. Throat without erythema, tonsillar hypertrophy or exudate. Uvula midline. Airway patent. NECK: Trachea midline. No JVD or lymphadenopathy. Supple, nontender, no meningeal signs. CARDIOVASCULAR: Regular rate and rhythm without murmurs, gallops, or rubs. RESPIRATORY: Decrease breath sounds slight rales bases GASTROINTESTINAL: Abdomen soft, non-tender, nondistended. No hepato-splenomegaly , or palpable masses. No guarding. MUSCULOSKELETAL: Extremities without clubbing, cyanosis, or edema. No joint tenderness, effusion, or edema noted. No calf tenderness. Negative Homans sign bilaterally. NEUROLOGICAL: Awake and alert. Cranial nerves II through XII intact. Motor and sensory grossly within normal limits. Five out of 5 muscle strength in all muscle groups. Normal speech. Medications and IVs Current Medications Medications (Trade) Dose Ordered Sig/Guerrero Route Start Time Stop Time Status Last Admin (Zofran Inj) 4 mg Q6H PRN IV 12/01/16 23:00 (Tylenol) 650 mg Q4H PRN PO 12/01/16 23:00 (NS Flush) 2 ml BID IV FLUSH 12/02/16 09:00 12/08/16 09:00 (NS Flush) 2 ml UNSCH PRN IVF 12/01/16 23:00 (Inspra) 25 mg DAILY PO 12/02/16 09:00 12/08/16 09:16 (Lexapro) 20 mg DAILY PO 12/02/16 09:00 12/08/16 09:16 (Demadex) 20 mg DAILY PO 12/02/16 09:00 12/08/16 09:16 (Tobradex Opth Susp) 1 drop TID RIGHT EYE 12/03/16 13:00 12/08/16 13:00 (Colace) 100 mg BID PO 12/04/16 16:30 12/08/16 09:16 (Milk Of Magnesia Liq) 30 ml DAILY PRN PO 12/04/16 16:30 12/07/16 09:13 (Dulcolax Ec) 10 mg DAILY PRN PO 12/04/16 16:30 12/07/16 09:13 (Oramorph Sr) 15 mg Q8HR PO 12/05/16 14:00 12/08/16 16:21 Sodium Biphosphate/ Sodium Phosphate 133 ml [address] 12/06/16 12:00 12/06/16 13:46 (NS 1000 ml Inj) 1,000 ml @ 100 mls/hr Q10H IV 12/08/16 12:45 12/08/16 22:44 A/P Assessment and Plan 1. Pneumonia in ER was given Azactam and Vancomycin, he is allergic to Penicillin, blood cultures negative added Bronchodilator, Mucolytic and incentive spirometry will continue present care by now. decreased IV fluids to 75 ml per hour. Echocardiogram from 12/02 EF 65%, Prosthetic AVR, mild MItral regurgitation LA mildly dilated, RV dilated with RV dysfunction, antibiotics converted to Levaquin 500 mg daily. 2. Sepsis secondary to #1. No Leukocytosis no signs of infection at this time. 3. Metabolic Encephalopathy at this time cleared, may have Delirium and component of Dementia Neurology specialist following. - EEG with diffuse mild theta slowing consistent with a mild diffuse encephalopathy. 4. CAD status post CABG and history of Bioprosthetic AVR 5. chronic lower extremity edema he was on Torsemide his asking to discontinue this medicine I agree he improved 6. Dysphagia he was evaluated by Speech Therapy recommended pureed diet with nectar thickened liquids which patient tolerated, on CT Focal airspace disease posterior segment left upper lobe and patchy airspace disease in the lower lobes most characteristic of bronchopneumonia. There is also underlying basilar pulmonary fibrosis with mild honeycombing at the right lung base. Chronic basilar pleural thickening also present.he shocked with foot at dinner today asked for new re evaluation by Speech therapy this could be the reason for patient's Pulmonary process. - MRI Brain (12/06) --> Moderate periventricular white matter small vessel ischemic changes bilaterally. Mild cerebral atrophy. Air within the right globe. No acute infarct, acute hemorrhage, mass effect or extra axial fluid collections. Mucosal thickening within the left maxillary and ethmoid sinuses. Significant spinal stenosis at C3-4 which is incompletely evaluated on this examination. - Pt will need SNF placement at the end of this hospitalization - DVT prophylaxis with SCDs. - See above I talked with his Primary Hospitalist Doctor Valentin Looney who asked me to see the patient starting today discussed in the room with patient and his more than 45 minutes on this case all questions answered to the best of my abilities. Discharge Planning Expected in one to two days. continue working with Physical therapy. Tho Mcpherson MD Dec 08, 2016 17:15
[2016-12-08] MEDS: RESP: ALBUTEROL 2.5 MG/IPRATROPIUM 0.5 MG NEB (SCH) NEB (20:26)
[2016-12-08] MEDS: guaiFENesin E.R. 600 MG TAB PO SCH (21:27)
[2016-12-09] VITALS (7 sets, daily range): BP systolic 101–121; BP diastolic 52–71; PULSE 63–84; RESP 17–20; TEMP 96–98.9; O2SAT 94–97
[2016-12-09] MEDS: SODIUM CHLOR 0.9% 1000 ML INJ 1,000 ML IV SCH (00:01)
[2016-12-09] MEDS: MORPHINE SULFATE 15 MG CONTROLLED RELEASE TAB PO SCH ×3 (06:16→23:24)
[2016-12-09 07:44] LABS: AUTOMATED NEUTROPHIL # 5.1 TH/MM3 (1.8-7.7); BASOPHIL # 0.2 TH/MM3 (0-0.2); EOSINOPHIL # 0.4 TH/MM3 (0-0.4); EOSINOPHIL % 5.7 % (0.0-4.0); HEMATOCRIT 49.2 % (39.0-51.0); HEMO FLAGS DIFF FINAL; LYMPH % 10.2 % (9.0-44.0); LYMPHOCYTE # 0.8 TH/MM3 (1.0-4.8); MEAN CELL VOLUME 90.9 FL (80.0-100.0); MEAN CORPUSCULAR HEMOGLOBIN 29.6 PG (27.0-34.0); MEAN CORPUSCULAR HGB CONC 32.6 % (32.0-36.0); NEUT % 67.1 % (16.0-70.0); PLATELET COUNT 142 TH/MM3 (150-450); RED BLOOD COUNT 5.41 MIL/MM3 (4.50-5.90); RED CELL DISTRIBUTION WIDTH 16.2 % (11.6-17.2); WHITE BLOOD COUNT 7.6 TH/MM3 (4.0-11.0)
[2016-12-09 08:09] LABS: ALT (GPT) 25 U/L (12-78); ANION GAP 5 MEQ/L (5-15); AST (GOT) 17 U/L (15-37); BICARBONATE 39.3 MEQ/L (21.0-32.0); BLOOD UREA NITROGEN 22 MG/DL (7-18); CHLORIDE 96 MEQ/L (98-107); GLOMERULAR FILTRATION RATE 53 ML/MIN (>89); MAGNESIUM 2.8 MG/DL (1.5-2.5); SODIUM (NA) 140 MEQ/L (136-145)
[2016-12-09 08:12] LABS: ALKALINE PHOSPHATASE 75 U/L (45-117); TOTAL BILIRUBIN ADULT 0.9 MG/DL (0.2-1.0)
[2016-12-09] MEDS: RESP: ALBUTEROL 2.5 MG/IPRATROPIUM 0.5 MG NEB (SCH) NEB ×4 (08:38→20:06)
[2016-12-09] MEDS ORDERED: INFLUENZA VIRUS VACCINE (QUADRIVALENT) 0.5 ML SYR IM ONE (09:00)
[2016-12-09] MEDS: DOCUSATE SODIUM 100 MG CAP PO SCH ×2 (09:00→21:00)
--- NOTE | 2016-12-09 09:09 | HHI.PR ---
Subjective Remarks This is a pleasant 70 y/o Male who was brought in by his due to Acute encephalopathy, he complaint of headache, and confusion, also had productive cough, denied Chest pain, or shortness of breath, no abdominal pain, no focal weakness no numbness, he had a fall before coming to ER, as we know he has Hypertension, DM II diet controlled, CAD status post CABG, CHF by history, he is been hospitalized and given antibiotics for Pneumonia. 12/09 patient stable seen in his bedroom in the presence of his Mrs Umanzor and nurse Miss Juarez, no complaint, she states her continue with some confusion but then states he is improved today, no nausea, vomit or diarrhea yesterday had a shocking sensation when eating I discussed with her and nurse to continue his diet recommended by Speech Therapy. Objective Vital Signs Date Time Temp Pulse Resp B/P Pulse Ox O2 Delivery O2 Flow Rate FiO2 12/09/16 08:40 95 Nasal Cannula 2.00 12/09/16 07:16 18 12/09/16 04:00 96.0 70 19 121/71 96 12/09/16 00:00 96.0 83 18 121/58 95 12/08/16 20:26 92 Nasal Cannula 3.00 12/08/16 20:00 96.2 78 19 99/52 95 12/08/16 16:00 96.0 75 16 111/71 92 12/08/16 12:00 95.8 77 18 116/71 93 I/O 12/08/16 12/08/16 12/08/16 12/09/16 12/09/16 12/09/16 07:00 15:00 23:00 07:00 15:00 23:00 Intake Total 960 ml 240 ml Output Total 100 ml 250 ml 200 ml Balance -100 ml 960 ml -10 ml -200 ml Intake Oral 960 ml 240 ml Output Urine Total 100 ml 250 ml 200 ml # Voids 1 2 # Bowel Movements 5 1 Result Diagram: 12/09/16 0540 12/09/16 0540 Imaging Last Impressions Chest X-Ray 12/08/16 0800 Signed Impressions: Service Date/Time: Thursday, December 08, 2016 08:40 - CONCLUSION: 1. Improvement with better aeration. 2. Findings suggest a persistent minimal interstitial edema. Eddie Cabrera MD FACR Abdomen X-Ray 12/08/16 0800 Signed Impressions: Service Date/Time: Thursday, December 08, 2016 08:37 - CONCLUSION: Interval improvement with less stool. Eddie Cabrera MD FACR Brain MRI 12/05/16 0000 Signed Impressions: Service Date/Time: Monday, December 05, 2016 19:34 - CONCLUSION: 1. Moderate periventricular white matter small vessel ischemic changes bilaterally. 2. Mild cerebral atrophy. 3. Air within the right globe. 4. No acute infarct, acute hemorrhage, mass effect or extra axial fluid collections. 5. Mucosal thickening within the left maxillary and ethmoid sinuses. 6. Significant spinal stenosis at C3-4 which is incompletely evaluated on this examination. Joseph Mendosa MD Chest CT 12/03/16 0000 Signed Impressions: Service Date/Time: Saturday, December 03, 2016 19:49 - CONCLUSION: 1. Focal airspace disease posterior segment left upper lobe and patchy airspace disease in the lower lobes most characteristic of bronchopneumonia. 2. There is also underlying basilar pulmonary fibrosis with mild honeycombing at the right lung base. Chronic basilar pleural thickening also present. 3. Coronary disease status post CABG. Pravin Gerard MD Head CT 12/01/162110 Signed Impressions: Service Date/Time: Thursday, December 01, 2016 21:37 - CONCLUSION: No acute intracranial findings. Rohit Parker MD Procedures No procedures performed Other Results Laboratory Tests Test 12/05/16 12/07/16 12/09/16 11:40 05:34 05:40 Ammonia LESS THAN 10 MCMOL/L Vitamin B12 Level 908 PG/ML Folate 7.6 NG/ML Free Thyroxine 1.33 NG/DL Thyroid Stimulating Hormone 4.300 uIU/ML 3rd Gen Rapid Plasma Reagin NON-REACTIVE Blood Gas Puncture Site RT BRACHIAL Blood Gas Patient Temperature 98.6 Blood Gas HCO3 36 mmol/L Blood Gas Base Excess 11.1 mmol/L Blood Gas Oxygen Saturation 93 % Arterial Blood pH 7.46 Arterial Blood Partial 50 mmHg Pressure CO2 Arterial Blood Partial 79 mmHg Pressure O2 Arterial Blood Oxygen Content 22.7 Vol % Arterial Blood 2.0 % Carboxyhemoglobin Arterial Blood Methemoglobin 0.7 % Blood Gas Hemoglobin 17.3 G/DL Oxygen Delivery Device NASAL CANNULA Blood Gas Liter Flow 4 L/M White Blood Count 7.6 TH/MM3 Red Blood Count 5.41 MIL/MM3 Hemoglobin 16.0 GM/DL Hematocrit 49.2 % Mean Corpuscular Volume 90.9 FL Mean Corpuscular Hemoglobin 29.6 PG Mean Corpuscular Hemoglobin 32.6 % Concent Red Cell Distribution Width 16.2 % Platelet Count 142 TH/MM3 Mean Platelet Volume 10.8 FL Neutrophils (%) (Auto) 67.1 % Lymphocytes (%) (Auto) 10.2 % Monocytes (%) (Auto) 15.0 % Eosinophils (%) (Auto) 5.7 % Basophils (%) (Auto) 2.0 % Neutrophils # (Auto) 5.1 TH/MM3 Lymphocytes # (Auto) 0.8 TH/MM3 Monocytes # (Auto) 1.1 TH/MM3 Eosinophils # (Auto) 0.4 TH/MM3 Basophils # (Auto) 0.2 TH/MM3 CBC Comment DIFF FINAL Differential Comment Sodium Level 140 MEQ/L Potassium Level 4.0 MEQ/L Chloride Level 96 MEQ/L Carbon Dioxide Level 39.3 MEQ/L Anion Gap 5 MEQ/L Blood Urea Nitrogen 22 MG/DL Creatinine 1.33 MG/DL Estimat Glomerular Filtration 53 ML/MIN Rate Random Glucose 81 MG/DL Calcium Level 9.2 MG/DL Phosphorus Level 3.5 MG/DL Magnesium Level 2.8 MG/DL Total Bilirubin 0.9 MG/DL Aspartate Amino Transf 17 U/L (AST/SGOT) Alanine Aminotransferase 25 U/L (ALT/SGPT) Alkaline Phosphatase 75 U/L Total Protein 6.3 GM/DL Albumin 2.7 GM/DL Objective Remarks GENERAL: No apparent distress. SKIN: Abdominal rash. scaly areas in his face. HEAD: Atraumatic. Normocephalic. No temporal or scalp tenderness. EYES: Pupils equal round and reactive. Extraocular motions intact. No scleral icterus. No injection or drainage. ENT: No lymphadenopathy. NECK: Trachea midline. No JVD or lymphadenopathy. Supple, nontender, no meningeal signs. CARDIOVASCULAR: Regular rate and rhythm without murmurs, gallops, or rubs. RESPIRATORY: Decrease breath sounds, no crackles of wheezing. GASTROINTESTINAL: Abdomen soft, non-tender, nondistended. MUSCULOSKELETAL: Extremities without clubbing, cyanosis, or edema. NEUROLOGICAL: Awake and alert and oriented x3. no focal deficits. Medications and IVs Current Medications Medications (Trade) Dose Ordered Sig/Guerrero Route Start Time Stop Time Status Last Admin (Zofran Inj) 4 mg Q6H PRN IV 12/01/16 23:00 (Tylenol) 650 mg Q4H PRN PO 12/01/16 23:00 (NS Flush) 2 ml BID IV FLUSH 12/02/16 09:00 12/08/16 09:00 (NS Flush) 2 ml UNSCH PRN IVF 12/01/16 23:00 (Inspra) 25 mg DAILY PO 12/02/16 09:00 12/08/16 09:16 (Lexapro) 20 mg DAILY PO 12/02/16 09:00 12/08/16 09:16 (Tobradex Opth Susp) 1 drop TID RIGHT EYE 12/03/16 13:00 12/08/16 18:00 (Colace) 100 mg BID PO 12/04/16 16:30 12/08/16 09:16 (Milk Of Magnesia Liq) 30 ml DAILY PRN PO 12/04/16 16:30 12/07/16 09:13 (Dulcolax Ec) 10 mg DAILY PRN PO 12/04/16 16:30 12/07/16 09:13 (Oramorph Sr) 15 mg Q8HR PO 12/05/16 14:00 12/09/16 06:16 Sodium Biphosphate/ Sodium Phosphate 133 ml 133 ml DAILY PRN NE 12/06/16 12:00 12/06/16 13:46 (NS 1000 ml Inj) 1,000 ml @ 75 mls/hr [id number] IV 12/08/16 12:45 12/08/16 12:45 (Mucinex Er) 600 mg BID PO 12/08/16 21:00 12/08/16 21:27 (Pneumovax-23 Inj) 25 mcg ONCE ONCE IM 12/10/16 10:00 12/10/16 10:01 A/P Assessment and Plan 1. Pneumonia in ER was given Azactam and Vancomycin, he is allergic to Penicillin, blood cultures negative added Bronchodilator, Mucolytic and incentive spirometry will continue present care by now. Echocardiogram from 12/02 EF 65%, Prosthetic AVR, mild MItral regurgitation LA mildly dilated, RV dilated with RV dysfunction,was treated with Levaquin until 12/07/16 2. Sepsis secondary to #1. No Leukocytosis no signs of infection at this time. 3. Metabolic Encephalopathy at this time cleared, may have Delirium and component of Dementia Neurology specialist following. - EEG with diffuse mild theta slowing consistent with a mild diffuse encephalopathy. 4. CAD status post CABG and history of Bioprosthetic AVR 5. chronic lower extremity edema at this time improved. 6. Dysphagia he was evaluated by Speech Therapy recommended pureed diet with nectar thickened liquids which patient tolerated, on CT Focal airspace disease posterior segment left upper lobe and patchy airspace disease in the lower lobes most characteristic of bronchopneumonia. There is also underlying basilar pulmonary fibrosis with mild honeycombing at the right lung base. Chronic basilar pleural thickening also present.he shocked with foot at dinner today asked for new re evaluation by Speech therapy this could be the reason for patient's Pulmonary process. 7. Acute renal injury probable secondary to the use of Diuretics that were discontinued yesterday will give half normal saline for the next 24 hours. 8. Abdominal rash on Calamine and Loratadine. - MRI Brain (12/06) --> Moderate periventricular white matter small vessel ischemic changes bilaterally. Mild cerebral atrophy. Air within the right globe. No acute infarct, acute hemorrhage, mass effect or extra axial fluid collections. Mucosal thickening within the left maxillary and ethmoid sinuses. Significant spinal stenosis at C3-4 which is incompletely evaluated on this examination. - Pt will need SNF placement at the end of this hospitalization - DVT prophylaxis with SCDs. - See above discussed in the room with patient and his Mrs. Umanzor also nurse Miss Juarez all questions answered. to the best of my abilities. Discharge Planning Expected in one to two days. continue working with Physical therapy. Tho Mcpherson MD Dec 09, 2016 09:09 Tho Mcpherson MD Dec 09, 2016 09:09 Tho Mcpherson MD Dec 09, 2016 09:09
[2016-12-09] MEDS: SODIUM CHLORIDE 0.9% FLUSH 10 ML FLUSH IV FLUSH SCH ×2 (09:41→23:25)
[2016-12-09] MEDS: guaiFENesin E.R. 600 MG TAB PO SCH ×2 (09:43→23:23)
[2016-12-09] MEDS: ESCITALOPRAM OXALATE 20 MG TAB PO SCH (09:43)
[2016-12-09] MEDS: EPLERENONE 25 MG TAB PO SCH (09:43)
[2016-12-09] MEDS: TOBRAMYCIN 0.3%/DEXAMETHASONE 0.1% OPHT SUSP 5 ML BTL RIGHT EYE SCH ×3 (09:44→18:00)
[2016-12-09] MEDS: CALAMINE/PRAMOXINE LOTION 180 ML BTL TOPICAL SCH ×2 (11:15→21:00)
[2016-12-09] MEDS ORDERED: PILL SPLITTER OTHER PRN (11:30)
[2016-12-09] MEDS: LORATADINE 10 MG TAB PO SCH (14:11)
[2016-12-09] MEDS: SODIUM CHLOR 0.45% 1000 ML INJ 1,000 ML IV SCH ×2 (14:34→21:15)
[2016-12-10] VITALS (9 sets, daily range): BP systolic 93–118; BP diastolic 50–66; PULSE 67–89; RESP 16–19; TEMP 96.8–99.5; O2SAT 92–99
[2016-12-10] MEDS: MORPHINE SULFATE 15 MG TAB PO PRN (01:39)
[2016-12-10] MEDS: SODIUM CHLOR 0.45% 1000 ML INJ 1,000 ML IV SCH ×2 (06:22→11:46)
[2016-12-10] MEDS: MORPHINE SULFATE 15 MG CONTROLLED RELEASE TAB PO SCH ×3 (06:26→22:34)
[2016-12-10] MEDS: RESP: ALBUTEROL 2.5 MG/IPRATROPIUM 0.5 MG NEB (SCH) NEB ×4 (07:52→21:36)
--- NOTE | 2016-12-10 08:42 | HHI.PR ---
Subjective Remarks This is a pleasant 70 y/o Male who was brought in by his due to Acute encephalopathy, he complaint of headache, and confusion, also had productive cough, denied Chest pain, or shortness of breath, no abdominal pain, no focal weakness no numbness, he had a fall before coming to ER, as we know he has Hypertension, DM II diet controlled, CAD status post CABG, CHF by history, he is been hospitalized and given antibiotics for Pneumonia. 12/09 His Mrs. Umanzor in the room, will continue recommendations performed by Speech Therapy specialist for feeding. 12/10 Seen in his bedroom in the presence of his she states he has Cervical Compression and is producing him back pain, bilateral foot drop, denied Nausea, vomit or diarrhea. he is Lethargic secondary to Morphine given. Objective Vital Signs Date Time Temp Pulse Resp B/P Pulse Ox O2 Delivery O2 Flow Rate FiO2 12/10/16 07:53 98 Nasal Cannula 2.00 12/10/16 07:42 16 12/10/16 06:01 18 12/10/16 04:00 98.0 72 19 111/54 96 12/10/16 00:00 97.8 83 18 93/50 93 12/09/16 20:00 98.9 84 17 106/55 94 12/09/16 16:00 98.3 79 20 112/52 95 12/09/16 12:00 96.6 74 20 119/64 97 I/O 12/09/16 12/09/16 12/09/16 12/10/16 12/10/16 12/10/16 07:00 15:00 23:00 07:00 15:00 23:00 Intake Total 480 ml 240 ml 120 ml Output Total 200 ml 300 ml 350 ml 200 ml Balance -200 ml 180 ml -110 ml -80 ml Intake Oral 480 ml 240 ml 120 ml Output Urine Total 200 ml 300 ml 350 ml 200 ml Result Diagram: 12/09/16 0540 12/09/1640 Imaging Last Impressions Chest X-Ray 12/08/16799 Signed Impressions: Service Date/Time: Thursday, December 08, 2016 08:40 - CONCLUSION: 1. Improvement with better aeration. 2. Findings suggest a persistent minimal interstitial edema. Eddie Cabrera MD FACR Abdomen X-Ray 12/08/16799 Signed Impressions: Service Date/Time: Thursday, December 08, 2016 08:37 - CONCLUSION: Interval improvement with less stool. Eddie Cabrera MD FACR Brain MRI 12/05/16 0000 Signed Impressions: Service Date/Time: Monday, December 05, 2016 19:34 - CONCLUSION: 1. Moderate periventricular white matter small vessel ischemic changes bilaterally. 2. Mild cerebral atrophy. 3. Air within the right globe. 4. No acute infarct, acute hemorrhage, mass effect or extra axial fluid collections. 5. Mucosal thickening within the left maxillary and ethmoid sinuses. 6. Significant spinal stenosis at C3-4 which is incompletely evaluated on this examination. Joseph Mendosa MD Chest CT 12/03/16 0000 Signed Impressions: Service Date/Time: Saturday, December 03, 2016 19:49 - CONCLUSION: 1. Focal airspace disease posterior segment left upper lobe and patchy airspace disease in the lower lobes most characteristic of bronchopneumonia. 2. There is also underlying basilar pulmonary fibrosis with mild honeycombing at the right lung base. Chronic basilar pleural thickening also present. 3. Coronary disease status post CABG. Pravin Gerard MD Head CT 12/01/162110 Signed Impressions: Service Date/Time: Thursday, December 01, 2016 21:37 - CONCLUSION: No acute intracranial findings. Rohit Parker MD Procedures No procedures performed Other Results Laboratory Tests Test 12/05/16 12/07/16 12/09/16 11:40 05:34 05:40 Rapid Plasma Reagin NON-REACTIVE Blood Gas Puncture Site RT BRACHIAL Blood Gas Patient Temperature 98.6 Blood Gas HCO3 36 mmol/L Blood Gas Base Excess 11.1 mmol/L Blood Gas Oxygen Saturation 93 % Arterial Blood pH 7.46 Arterial Blood Partial 50 mmHg Pressure CO2 Arterial Blood Partial 79 mmHg Pressure O2 Arterial Blood Oxygen Content 22.7 Vol % Arterial Blood 2.0 % Carboxyhemoglobin Arterial Blood Methemoglobin 0.7 % Blood Gas Hemoglobin 17.3 G/DL Oxygen Delivery Device NASAL CANNULA Blood Gas Liter Flow 4 L/M White Blood Count 7.6 TH/MM3 Red Blood Count 5.41 MIL/MM3 Hemoglobin 16.0 GM/DL Hematocrit 49.2 % Mean Corpuscular Volume 90.9 FL Mean Corpuscular Hemoglobin 29.6 PG Mean Corpuscular Hemoglobin 32.6 % Concent Red Cell Distribution Width 16.2 % Platelet Count 142 TH/MM3 Mean Platelet Volume 10.8 FL Neutrophils (%) (Auto) 67.1 % Lymphocytes (%) (Auto) 10.2 % Monocytes (%) (Auto) 15.0 % Eosinophils (%) (Auto) 5.7 % Basophils (%) (Auto) 2.0 % Neutrophils # (Auto) 5.1 TH/MM3 Lymphocytes # (Auto) 0.8 TH/MM3 Monocytes # (Auto) 1.1 TH/MM3 Eosinophils # (Auto) 0.4 TH/MM3 Basophils # (Auto) 0.2 TH/MM3 CBC Comment DIFF FINAL Differential Comment Sodium Level 140 MEQ/L Potassium Level 4.0 MEQ/L Chloride Level 96 MEQ/L Carbon Dioxide Level 39.3 MEQ/L Anion Gap 5 MEQ/L Blood Urea Nitrogen 22 MG/DL Creatinine 1.33 MG/DL Estimat Glomerular Filtration 53 ML/MIN Rate Random Glucose 81 MG/DL Calcium Level 9.2 MG/DL Phosphorus Level 3.5 MG/DL Magnesium Level 2.8 MG/DL Total Bilirubin 0.9 MG/DL Aspartate Amino Transf 17 U/L (AST/SGOT) Alanine Aminotransferase 25 U/L (ALT/SGPT) Alkaline Phosphatase 75 U/L Total Protein 6.3 GM/DL Albumin 2.7 GM/DL Objective Remarks GENERAL: No apparent distress. SKIN: Abdominal rash. scaly areas in his face. HEAD: Atraumatic. Normocephalic. No temporal or scalp tenderness. EYES: Pupils equal round and reactive. Extraocular motions intact. No scleral icterus. No injection or drainage. ENT: No lymphadenopathy. NECK: Trachea midline. No JVD or lymphadenopathy. Supple, nontender, no meningeal signs. CARDIOVASCULAR: Regular rate and rhythm without murmurs, gallops, or rubs. RESPIRATORY: Decrease breath sounds, no crackles of wheezing. GASTROINTESTINAL: Abdomen soft, non-tender, nondistended. MUSCULOSKELETAL: Extremities without clubbing, cyanosis, or edema. NEUROLOGICAL: lethargic but awakes, comes back to sleep. No Focal Deficits. but difficult to evaluate at this time due to pain medicine Medications and IVs Current Medications Medications (Trade) Dose Ordered Sig/Guerrero Route Start Time Stop Time Status Last Admin (Zofran Inj) 4 mg Q6H PRN IV 12/01/16 23:00 (Tylenol) 650 mg Q4H PRN PO 12/01/16 23:00 (NS Flush) 2 ml BID IV FLUSH 12/02/16 09:00 12/09/16 23:25 (NS Flush) 2 ml UNSCH PRN IVF 12/01/16 23:00 (Inspra) 25 mg DAILY PO 12/02/16 09:00 12/09/16 09:43 (Lexapro) 20 mg DAILY PO 12/02/16 09:00 12/09/16 09:43 (Tobradex Opth Susp) 1 drop TID RIGHT EYE 12/03/16 13:00 12/09/16 18:00 (Colace) 100 mg BID PO 12/04/16 16:30 12/08/16 09:16 (Milk Of Magnesia Liq) 30 ml DAILY PRN PO 12/04/16 16:30 12/07/16 09:13 (Dulcolax Ec) 10 mg DAILY PRN PO 12/04/16 16:30 12/07/16 09:13 (Oramorph Sr) 15 mg Q8HR PO 12/05/16 14:00 12/10/16 06:26 (Fleets Enema (Adult)) 133 ml DAILY PRN DE 12/06/16 12:00 12/06/16 13:46 (Mucinex Er) 600 mg BID PO 12/08/16 21:00 12/09/16 23:23 Pneumococcal Polyvalent Vaccine 25 mcg 25 mcg ONCE ONCE IM 12/10/16 10:00 12/10/16 10:01 (12 NS 1000 ml Inj) 1,000 ml @ 100 mls/hr Q10H IV 12/09/16 11:15 12/09/16 21:15 (Claritin) 5 mg DAILY PO 12/09/16 11:15 12/09/16 14:11 (Caladryl Lotion) 1 applic Q12HR TOPICAL 12/09/16 11:15 12/09/16 21:00 (Pill Splitter) 1 ea UNSCH PRN OTHER 12/09/16 11:30 (Msir) 15 mg Q4H PRN PO 12/10/16 01:15 12/10/16 01:39 (Msir) 30 mg Q4H PRN PO 12/10/16 01:15 A/P Assessment and Plan 1. Pneumonia in ER was given Azactam and Vancomycin, he is allergic to Penicillin, blood cultures negative added Bronchodilator, Mucolytic and incentive spirometry will continue present care by now. Echocardiogram from 12/02 EF 65%, Prosthetic AVR, mild MItral regurgitation LA mildly dilated, RV dilated with RV dysfunction,was treated with Levaquin until 12/07/16 2. Sepsis secondary to #1. No Leukocytosis no signs of infection at this time. 3. Metabolic Encephalopathy Improved, may have had Delirium and component of Dementia Neurology specialist followed - EEG with diffuse mild theta slowing consistent with a mild diffuse encephalopathy. 4. CAD status post CABG and history of Bioprosthetic AVR 5. chronic lower extremity edema at this time improved. 6. Dysphagia he was re evaluated by Speech therapy recommended for Mechanical soft and [place] consistency liquids. CT Focal airspace disease posterior segment left upper lobe and patchy airspace disease in the lower lobes most characteristic of bronchopneumonia. There is also underlying basilar pulmonary fibrosis with mild honeycombing at the right lung base. 7. Acute renal injury probable secondary to the use of Diuretics that were discontinued, now Improved. 8. Abdominal rash on Calamine and Loratadine. 9. questionable Cervical spine and Thoracic spine Stenosis as per with some neurological Deficit will get MRI of the spine. - MRI Brain (12/06) --> Moderate periventricular white matter small vessel ischemic changes bilaterally. Mild cerebral atrophy. Air within the right globe. No acute infarct, acute hemorrhage, mass effect or extra axial fluid collections. Mucosal thickening within the left maxillary and ethmoid sinuses. Significant spinal stenosis at C3-4 which is incompletely evaluated on this examination. - Pt will need SNF placement at the end of this hospitalization - DVT prophylaxis with SCDs. - See above discussed in the room with patient and his Mrs. Umanzor also nurse Miss Juarez all questions answered. to the best of my abilities. Discharge Planning Expected in one to two days. continue working with Physical therapy. Tho Mcpherson MD Dec 10, 2016 08:42 Tho Mcpherson MD Dec 10, 2016 08:42
[2016-12-10 08:52] LABS: BICARBONATE 36.2 MEQ/L (21.0-32.0); POTASSIUM 3.8 MEQ/L (3.5-5.1)
[2016-12-10] MEDS: LORATADINE 10 MG TAB PO SCH (08:52)
[2016-12-10] MEDS: guaiFENesin E.R. 600 MG TAB PO SCH ×2 (08:53→22:34)
[2016-12-10] MEDS: ESCITALOPRAM OXALATE 20 MG TAB PO SCH (08:53)
[2016-12-10] MEDS: DOCUSATE SODIUM 100 MG CAP PO SCH ×2 (08:53→21:00)
[2016-12-10] MEDS: EPLERENONE 25 MG TAB PO SCH (08:53)
[2016-12-10] MEDS: MORPHINE SULFATE 30 MG TAB PO PRN (08:54)
[2016-12-10] MEDS: SODIUM CHLORIDE 0.9% FLUSH 10 ML FLUSH IV FLUSH SCH ×2 (08:55→21:00)
[2016-12-10] MEDS: TOBRAMYCIN 0.3%/DEXAMETHASONE 0.1% OPHT SUSP 5 ML BTL RIGHT EYE SCH ×3 (08:55→18:42)
[2016-12-10] MEDS: CALAMINE/PRAMOXINE LOTION 180 ML BTL TOPICAL SCH ×2 (08:55→22:34)
[2016-12-10] MEDS ORDERED: PNEUMOCOCCAL POLYVALENT INJ 25 MCG/0.5 ML SYR IM ONE (10:00)
--- NOTE | 2016-12-10 17:28 | RADRPT ---
EXAM DATE/TIME: 12/10/2016 15:05 [facility] COMPARISON: No previous studies available for comparison. INDICATIONS : Radiculopathy. MEDICAL HISTORY : Cardiovascular disease Congestive heart failure. SURGICAL HISTORY : CABG CABG Aortic valve replacment. ENCOUNTER: Initial ACUITY: 1 day PAIN SCORE: 0/10 LOCATION: [facility] TECHNIQUE: Multiplanar multisequence MRI of the thoracic spine was performed. FINDINGS: There is moderate degenerative disc disease throughout the thoracic spine with a mild kyphosis. No di screte disc protrusions are identified. There is no significant canal stenosis or foraminal stenosis identified. Thoracic cord demonstrates no signal abnormalities. No cord impingement or compression. CONCLUSION: 1. Moderate degenerative disc disease in the thoracic spine with mild kyphosis. No canal or significa nt foraminal stenosis. No cord impingement. Prvain Gerard MD on December 10, 2016 at 17:24 Board Certified Radiologist. This report was verified electronically.
--- NOTE | 2016-12-10 17:32 | RADRPT ---
EXAM DATE/TIME: 12/10/2016 15:05 [facility] COMPARISON: No previous studies available for comparison. INDICATIONS : Radiculopathy. MEDICAL HISTORY : Cardiovascular disease Congestive heart failure. SURGICAL HISTORY : CABG Aortic valve replacement. ENCOUNTER: Initial ACUITY: 1 day PAIN SCORE: 0/10 LOCATION: [facility] TECHNIQUE: Multiplanar, multisequence MRI examination of the cervical spine was performed. FINDINGS: At C2-3 there is a posterior disc osteophyte complex effacing anterior thecal sac without cord compre ssion. Mild foraminal stenosis, left greater than right. At C3-4 there is a prominent posterior disc osteophyte complex results in a focal moderate AP canal s tenosis and mild flattening of the cord. Mild bilateral foraminal stenosis. At C4-5 there is a broad-based disc osteophyte complex resulting in mild canal stenosis with minimal impression on anterior surface of cord. Mild foraminal encroachment. At C5-6 there is degenerative change without significant stenosis. At C6-7 is osteophytic ridging effacing anterior thecal sac without cord impingement. Minimal foramin al encroachment. At C7-T1 is no significant abnormality. CONCLUSION: 1. At C3-4 there is focal moderate stenosis from degenerative disc disease with mild flattening of th e cord. Mild bilateral foraminal encroachment. 2. At C4-5 there is mild canal stenosis and foraminal encroachment. 3. No fracture or spondylolisthesis. Moderate to severe degenerative disc disease throughout the cerv ical cord. 1. Pravin Gerard MD on December 10, 2016 at 17:26 Board Certified Radiologist. This report was verified electronically.
[2016-12-10] MEDS: ACETAMINOPHEN 325 MG TAB PO PRN (18:49)
[2016-12-10 21:21] LABS: BASOPHIL # 0.1 TH/MM3 (0-0.2); BASOPHIL % 0.6 % (0.0-2.0); EOSINOPHIL # 0.4 TH/MM3 (0-0.4); EOSINOPHIL % 4.5 % (0.0-4.0); HEMATOCRIT 47.9 % (39.0-51.0); HEMO FLAGS DIFF FINAL; LYMPH % 4.7 % (9.0-44.0); LYMPHOCYTE # 0.4 TH/MM3 (1.0-4.8); MEAN CELL VOLUME 90.6 FL (80.0-100.0); MEAN CORPUSCULAR HEMOGLOBIN 29.8 PG (27.0-34.0); MEAN CORPUSCULAR HGB CONC 32.9 % (32.0-36.0); MONO % 11.9 % (0.0-8.0); NEUT % 78.3 % (16.0-70.0); PLATELET COUNT 134 TH/MM3 (150-450); RED BLOOD COUNT 5.28 MIL/MM3 (4.50-5.90); RED CELL DISTRIBUTION WIDTH 16.2 % (11.6-17.2); WHITE BLOOD COUNT 8.9 TH/MM3 (4.0-11.0)
--- NOTE | 2016-12-10 22:26 | RADRPT ---
EXAM DATE/TIME: 12/10/2016 21:35 [facility] COMPARISON: CHEST SINGLE AP, December 03, 2016, 5:40. INDICATIONS : Pneumonia. Short of breath. MEDICAL HISTORY : None. SURGICAL HISTORY : None. ENCOUNTER: Subsequent ACUITY: 3 days PAIN SCORE: Non-responsive. LOCATION: Bilateral chest FINDINGS: A single view of the chest demonstrates cardiomegaly with bilateral mostly basilar airspace disease s imilar to December 03 with small right effusion. Previous median sternotomy. No pneumothorax. CONCLUSION: 1. Bilateral mostly basilar airspace disease similar to December 03. Previous median sternotomy. Pravin Gerard MD on December 10, 2016 at 22:22 Board Certified Radiologist. This report was verified electronically.
[2016-12-11] VITALS (8 sets, daily range): BP systolic 98–163; BP diastolic 57–83; PULSE 87–93; RESP 18–24; TEMP 97.8–99.2; O2SAT 89–94
[2016-12-11] MEDS: SODIUM CHLOR 0.45% 1000 ML INJ 1,000 ML IV SCH ×3 (02:07→23:15)
[2016-12-11] MEDS ORDERED: HALOPERIDOL LACTATE 5 MG/ML AMP IM ONE (04:30)
[2016-12-11] MEDS: MORPHINE SULFATE 15 MG TAB PO PRN (04:34)
[2016-12-11] MEDS: RESP: ALBUTEROL 2.5 MG/IPRATROPIUM 0.5 MG NEB (SCH) NEB ×4 (08:00→21:09)
[2016-12-11] MEDS: MORPHINE SULFATE 15 MG CONTROLLED RELEASE TAB PO SCH ×3 (08:19→21:35)
[2016-12-11] MEDS: SODIUM CHLORIDE 0.9% FLUSH 10 ML FLUSH IV FLUSH SCH ×2 (09:00→21:00)
[2016-12-11] MEDS: guaiFENesin E.R. 600 MG TAB PO SCH ×2 (09:15→21:36)
[2016-12-11] MEDS: DOCUSATE SODIUM 100 MG CAP PO SCH ×2 (09:15→21:35)
[2016-12-11] MEDS: ESCITALOPRAM OXALATE 20 MG TAB PO SCH (09:16)
[2016-12-11] MEDS: EPLERENONE 25 MG TAB PO SCH (09:16)
[2016-12-11] MEDS: LORATADINE 10 MG TAB PO SCH (09:16)
[2016-12-11] MEDS: ACETAMINOPHEN 325 MG TAB PO PRN ×2 (09:18→19:32)
[2016-12-11] MEDS: TOBRAMYCIN 0.3%/DEXAMETHASONE 0.1% OPHT SUSP 5 ML BTL RIGHT EYE SCH ×3 (09:21→18:00)
[2016-12-11] MEDS: CALAMINE/PRAMOXINE LOTION 180 ML BTL TOPICAL SCH ×2 (09:21→21:37)
--- NOTE | 2016-12-11 11:09 | HHI.PR ---
Subjective Remarks This is a pleasant 70 y/o Male who was brought in by his due to Acute encephalopathy, he complaint of headache, and confusion, also had productive cough, denied Chest pain, or shortness of breath, no abdominal pain, no focal weakness no numbness, he had a fall before coming to ER, as we know he has Hypertension, DM II diet controlled, CAD status post CABG, CHF by history, he is been hospitalized and given antibiotics for Pneumonia. 12/09 His Mrs. Umanzor in the room, will continue recommendations performed by Speech Therapy specialist for feeding. 12/10 Seen in his bedroom in the presence of his she states he has Cervical Compression and is producing him back pain, bilateral foot drop, he is Lethargic secondary to Morphine given. 12/11 Stable seen in his bedroom, seen in the presence of his Mrs. Umanzor also nurse Halina present all the time while I was in the room, his insist he has foot drop, also some Encephalopathy, when I talked with the patient he is Alert and oriented, had some Respiratory insufficiency, he was given Pain medicine and Haldol during the night also placed on Restraints, at this time recommended to remove Restraints at this time and was done, also not to continue with Haldol. Objective Vital Signs Date Time Temp Pulse Resp B/P Pulse Ox O2 Delivery O2 Flow Rate FiO2 12/11/16 08:42 99.2 88 24 132/63 90 12/11/16 08:03 Nasal Cannula 2.00 12/11/16 05:40 16 12/11/16 04:00 99.2 87 18 138/83 94 12/11/16 00:22 16 12/11/16 00:00 99.2 88 18 98/57 93 12/10/16 21:36 93 Nasal Cannula 3.00 12/10/16 20:00 98.4 89 19 118/58 92 12/10/16 18:50 99.5 12/10/16 16:00 98.7 84 16 113/66 94 12/10/16 12:00 97.1 71 16 98/56 95 I/O 12/10/16 12/10/16 12/10/16 12/11/16 12/11/16 12/11/16 07:00 15:00 23:00 07:00 15:00 23:00 Intake Total 120 ml 2505 ml 240 ml 240 ml Output Total 200 ml 300 ml 450 ml 1000 ml Balance -80 ml 2205 ml -210 ml -760 ml Intake Oral 120 ml 240 ml 240 ml 240 ml IV Total 2265 ml Output Urine Total 200 ml 300 ml 450 ml 1000 ml Result Diagram: 12/10/160 12/10/16 0650 Imaging Last Impressions Thoracic Spine MRI 12/10/16 0000 Signed Impressions: Service Date/Time: Saturday, December 10, 2016 15:05 - CONCLUSION: 1. Moderate degenerative disc disease in the thoracic spine with mild kyphosis. No canal or significant foraminal stenosis. No cord impingement. Pravin Gerard MD Chest X-Ray 12/10/16 0000 Signed Impressions: Service Date/Time: Saturday, December 10, 2016 21:35 - CONCLUSION: 1. Bilateral mostly basilar airspace disease similar to December 03. Previous median sternotomy. Pravin Gerard MD Cervical Spine MRI 12/10/16 0000 Signed Impressions: Service Date/Time: Saturday, December 10, 2016 15:05 - CONCLUSION: 1. At C3-4 there is focal moderate stenosis from degenerative disc disease with mild flattening of the cord. Mild bilateral foraminal encroachment. 2. At C4-5 there is mild canal stenosis and foraminal encroachment. 3. No fracture or spondylolisthesis. Moderate to severe degenerative disc disease throughout the cervical cord. 1. Pravin Gerard MD Abdomen X-Ray 12/08/16 0800 Signed Impressions: Service Date/Time: Thursday, December 08, 2016 08:37 - CONCLUSION: Interval improvement with less stool. Eddie Cabrera MD FACR Brain MRI 12/05/16 0000 Signed Impressions: Service Date/Time: Monday, December 05, 2016 19:34 - CONCLUSION: 1. Moderate periventricular white matter small vessel ischemic changes bilaterally. 2. Mild cerebral atrophy. 3. Air within the right globe. 4. No acute infarct, acute hemorrhage, mass effect or extra axial fluid collections. 5. Mucosal thickening within the left maxillary and ethmoid sinuses. 6. Significant spinal stenosis at C3-4 which is incompletely evaluated on this examination. Joseph Mendosa MD Chest CT 12/03/16 0000 Signed Impressions: Service Date/Time: Saturday, December 03, 2016 19:49 - CONCLUSION: 1. Focal airspace disease posterior segment left upper lobe and patchy airspace disease in the lower lobes most characteristic of bronchopneumonia. 2. There is also underlying basilar pulmonary fibrosis with mild honeycombing at the right lung base. Chronic basilar pleural thickening also present. 3. Coronary disease status post CABG. Pravin Gerard MD Head CT 12/01/162110 Signed Impressions: Service Date/Time: Thursday, December 01, 2016 21:37 - CONCLUSION: No acute intracranial findings. Rohit Parker MD Procedures No procedures performed Other Results Laboratory Tests Test 12/07/16 12/09/16 12/10/16 12/10/16 05:34 05:40 06:50 21:10 Blood Gas Puncture Site RT BRACHIAL Blood Gas Patient Temperature 98.6 Blood Gas HCO3 36 mmol/L Blood Gas Base Excess 11.1 mmol/L Blood Gas Oxygen Saturation 93 % Arterial Blood pH 7.46 Arterial Blood Partial 50 mmHg Pressure CO2 Arterial Blood Partial 79 mmHg Pressure O2 Arterial Blood Oxygen Content 22.7 Vol % Arterial Blood 2.0 % Carboxyhemoglobin Arterial Blood Methemoglobin 0.7 % Blood Gas Hemoglobin 17.3 G/DL Oxygen Delivery Device NASAL CANNULA Blood Gas Liter Flow 4 L/M Phosphorus Level 3.5 MG/DL Magnesium Level 2.8 MG/DL Total Bilirubin 0.9 MG/DL Aspartate Amino Transf 17 U/L (AST/SGOT) Alanine Aminotransferase 25 U/L (ALT/SGPT) Alkaline Phosphatase 75 U/L Total Protein 6.3 GM/DL Albumin 2.7 GM/DL Sodium Level 137 MEQ/L Potassium Level 3.8 MEQ/L Chloride Level 95 MEQ/L Carbon Dioxide Level 36.2 MEQ/L Anion Gap 6 MEQ/L Blood Urea Nitrogen 14 MG/DL Creatinine 0.88 MG/DL Estimat Glomerular Filtration 85 ML/MIN Rate Random Glucose 88 MG/DL Calcium Level 8.5 MG/DL White Blood Count 8.9 TH/MM3 Red Blood Count 5.28 MIL/MM3 Hemoglobin 15.7 GM/DL Hematocrit 47.9 % Mean Corpuscular Volume 90.6 FL Mean Corpuscular Hemoglobin 29.8 PG Mean Corpuscular Hemoglobin 32.9 % Concent Red Cell Distribution Width 16.2 % Platelet Count 134 TH/MM3 Mean Platelet Volume 9.0 FL Neutrophils (%) (Auto) 78.3 % Lymphocytes (%) (Auto) 4.7 % Monocytes (%) (Auto) 11.9 % Eosinophils (%) (Auto) 4.5 % Basophils (%) (Auto) 0.6 % Neutrophils # (Auto) 7.0 TH/MM3 Lymphocytes # (Auto) 0.4 TH/MM3 Monocytes # (Auto) 1.1 TH/MM3 Eosinophils # (Auto) 0.4 TH/MM3 Basophils # (Auto) 0.1 TH/MM3 CBC Comment DIFF FINAL Differential Comment Objective Remarks GENERAL: No apparent distress. SKIN: Abdominal rash. scaly areas in his face. HEAD: Atraumatic. Normocephalic. No temporal or scalp tenderness. EYES: Pupils equal round and reactive. Extraocular motions intact. No scleral icterus. No injection or drainage. ENT: No lymphadenopathy. NECK: Trachea midline. No JVD or lymphadenopathy. Supple, nontender, no meningeal signs. CARDIOVASCULAR: Regular rate and rhythm without murmurs, gallops, or rubs. RESPIRATORY: Decrease breath sounds, no crackles of wheezing. GASTROINTESTINAL: Abdomen soft, non-tender, nondistended. MUSCULOSKELETAL: Extremities without clubbing, cyanosis, or edema. NEUROLOGICAL: Alert and oriented x 3. Medications and IVs Current Medications Medications (Trade) Dose Ordered Sig/Guerrero Route Start Time Stop Time Status Last Admin (Zofran Inj) 4 mg Q6H PRN IV 12/01/16 23:00 (Tylenol) 650 mg Q4H PRN PO 12/01/16 23:00 12/11/16 09:18 (NS Flush) 2 ml BID IV FLUSH 12/02/16 09:00 12/09/16 23:25 (NS Flush) 2 ml UNSCH PRN IVF 12/01/16 23:00 (Inspra) 25 mg DAILY PO 12/02/16 09:00 12/11/16 09:16 (Lexapro) 20 mg DAILY PO 12/02/16 09:00 12/11/16 09:16 (Tobradex Opth Susp) 1 drop TID RIGHT EYE 12/03/16 13:00 12/11/16 09:21 (Colace) 100 mg BID PO 12/04/16 16:30 12/11/16 09:15 (Milk Of Magnesia Liq) 30 ml DAILY PRN PO 12/04/16 16:30 12/07/16 09:13 (Dulcolax Ec) 10 mg DAILY PRN PO 12/04/16 16:30 12/07/16 09:13 (Oramorph Sr) 15 mg Q8HR PO 12/05/16 14:00 12/10/16 22:34 (Fleets Enema (Adult)) 133 ml DAILY PRN AR 12/06/16 12:00 12/06/16 13:46 Guaifenesin 600 mg 600 mg BID PO 12/08/16 21:00 12/11/16 09:15 (1/2 NS 1000 ml Inj) 1,000 ml @ 100 mls/hr Q10H IV 12/09/16 11:15 12/11/16 02:07 (Claritin) 5 mg DAILY PO 12/09/16 11:15 12/11/16 09:16 (Caladryl Lotion) 1 applic Q12HR TOPICAL 12/09/16 11:15 12/11/16 09:21 (Pill Splitter) 1 ea UNSCH PRN OTHER 12/09/16 11:30 (Msir) 15 mg Q4H PRN PO 12/10/16 01:15 12/11/16 04:34 (Msir) 30 mg Q4H PRN PO 12/10/16 01:15 12/10/16 08:54 A/P Assessment and Plan 1. Pneumonia in ER was given Azactam and Vancomycin, he is allergic to Penicillin, blood cultures negative added Bronchodilator, Mucolytic and incentive spirometry will continue present care by now. Echocardiogram from 12/02 EF 65%, Prosthetic AVR, mild MItral regurgitation LA mildly dilated, RV dilated with RV dysfunction,was treated with Levaquin until 12/07/16 new CXR taken yesterday gave Bilateral Mostly airspace disease similar to December 03. patient without fever, no leukocytosis, no signs of infection, his states he has green sputum will continue pulmonary toilet. but no antibiotics at this time. 2. Sepsis secondary to #1. No Leukocytosis no signs of infection at this time. 3. Metabolic Encephalopathy Improved, may have had Delirium and component of Dementia Neurology specialist followed - EEG with diffuse mild theta slowing consistent with a mild diffuse encephalopathy. his states he continue with Encephalopathy not seen that in my evaluation, asked for Psychiatric evaluation. probable Delirium may explain his last conduct from yesterday when was Aggressive with his and nurse. 4. CAD status post CABG and history of Bioprosthetic AVR 5. chronic lower extremity edema at this time improved. 6. Dysphagia he was re evaluated by Speech therapy recommended for Mechanical soft and Bushnell consistency liquids. CT Focal airspace disease posterior segment left upper lobe and patchy airspace disease in the lower lobes most characteristic of bronchopneumonia. There is also underlying basilar pulmonary fibrosis with mild honeycombing at the right lung base. 7. Acute renal injury Improved. 8. Abdominal rash on Calamine and Loratadine. 9. Thoracic Spine Moderate degenerative disc disease in the thoracic spine with mild Kyphosis No canal or significant foraminal stenosis, no cord impingements. on Cervical spine C3-C4 focal moderate stenosis from degenerative disc disease with mild flattening of the cord, Mild bilateral foraminal encroachment Discussed with Neurosurgery specialist Doctor Rodrigo Bhat - MRI Brain (12/06) --> Moderate periventricular white matter small vessel ischemic changes bilaterally. Mild cerebral atrophy. Air within the right globe. No acute infarct, acute hemorrhage, mass effect or extra axial fluid collections. Mucosal thickening within the left maxillary and ethmoid sinuses. Significant spinal stenosis at C3-4 which is incompletely evaluated on this examination. - Pt will need SNF placement at the end of this hospitalization - DVT prophylaxis with SCDs. discussed in the room with patient and his Mrs. Umanzor also nurse Miss Meade appreciated. all questions answered. to the best of my abilities. As Always a pleasure to talk about this case with Neurosurgery Specialist doctor Rodrigo Bhat his input and recommendations highly Appreciated Discharge Planning Expected in one to two days. continue working with Physical therapy. Tho Mcpherson MD Dec 11, 2016 11:09
--- NOTE | 2016-12-11 11:55 | PD.CONS ---
HPI Service Neurosurg Consult Requested By Dr Brito Reason for Consult spinal spondylosis Primary Care Physician Rohit Lobo M.D. History of Present Illness This is a 70-year-old male was brought To [facility] by his altered mental status. He was complaining of headaches and confusion with productive cough. His headache was diffuse over the head. He denies any chest pain or shortness of breath. Denies abdominal pain. Reports frequent falls. Past Family Social History Allergies: Coded Allergies: Bactrim (Verified Allergy, Severe, 12/01/16) Penicillin (Verified Allergy, Severe, 12/01/16) Tramadol (Verified Allergy, Severe, 12/01/16) Past Medical History cad, chf, chronic edema, post tramatic stress syndrome Past Surgical History cardiac valve surgery CABP Reported Medications Singulair (Montelukast Sodium) 5 Mg Chew Unknown Dose CHEW DAILY Prednisone 10 Mg Tab 10 Mg PO DAILY Torsemide 20 Mg Tab 20 Mg PO DAILY Eplerenone 25 Mg Tab 25 Mg PO DAILY Dehydroepiandrosterone Powder (Prasterone Powder) 1 Pow Pow 50 Mg PO BID Atropine Opth Drops 1% Soln 1 Drop RIGHT EYE TID Escitalopram (Escitalopram Oxalate) 20 Mg Tab 20 Mg PO DAILY Ms Contin (Morphine Sulfate) 30 Mg Tab 30 Active Ordered Medications Current Medications Sodium Chloride 1,000 ml @ 999 mls/hr BOLUS ONCE IV Last administered on 12/01 21:36; Start 12/01/16 at 21:15; Stop 12/01/16 at 22:15; Status DC Aztreonam 1000 mg/ Sodium Chloride 100 ml @ 200 mls/hr ONCE ONCE IV Last administered on 12/01/16 22:45; Start 12/01/16 at 22:30; Stop 12/01/16 at 22:59 ; Status DC Vancomycin HCl/ Sodium Chloride (Vancomycin Inj/ NS 250 ml Inj) 250 ml @ 250 mls/hr ONCE ONCE IV Last administered on 12/01/16 22:32; Start 12/01/16 at 22 :30; Stop 12/01/16 at 23:29; Status DC Ondansetron HCl (Zofran Inj) 4 mg Q6H PRN IV NAUSEA OR VOMITING; Start at 23:00 Acetaminophen (Tylenol) 650 mg Q4H PRN PO Temp>101F, Headache Last administered on 12/11/16 09:18; Start 12/01/16 at 23:00 Sodium Chloride (NS Flush) 2 ml BID IV FLUSH Last administered on 12/09/16 23: 25; Start 12/02/16 at 09:00 Sodium Chloride 2 ml 2 ml UNSCH PRN IVF FLUSH AFTER USING IV ACCESS; Start at 23:00 Vancomycin HCl 1000 mg/Sodium Chloride 250 ml @ 250 mls/hr Q12H IV ; Start at 10:00; Stop 12/02/16 at 10:00; Status DC Aztreonam/Sodium Chloride (Azactam Inj/NS Inj) 100 ml @ 200 mls/hr Q12H IV ; Start 12/02/16 at 11:00; Stop 12/02/16 at 11:00; Status DC Atropine Sulfate (Atropine 1% Opth Soln) 1 drop TID RIGHT EYE Last administered on 12/03/16 09:36; Start 12/02/16 at 09:00; Stop 12/03/16 at 10:10 ; Status DC Epleronone (Inspra) 25 mg DAILY PO Last administered on 12/11/16 09:16; Start 12/02/16 at 09:00 Escitalopram Oxalate (Lexapro) 20 mg DAILY PO Last administered on 12/11/16 09: 16; Start 12/02/16 at 09:00 Morphine Sulfate (Oramorph Sr) 30 mg Q8HR PO Last administered on 12/05/16 05: 45; Start 12/02/16 at 06:00; Stop 12/05/16 at 10:16; Status DC Torsemide 20 mg 20 mg DAILY PO Last administered on 12/08/16 09:16; Start at 09:00; Stop 12/08/16 at 18:56; Status DC Pharmacy Profile Note 0 ml @ 0 mls/hr UNSCH OTHER ; Start 12/01/16 at 23:30; Stop 12/02/16 at 09:37; Status DC Vancomycin HCl 1000 mg/Sodium Chloride 250 ml @ 250 mls/hr ONCE ONCE IV Last administered on 12/02/16 00:39; Start 12/02/16 at 00:30; Stop 12/02/16 at 01:29 ; Status DC Vancomycin HCl/ Sodium Chloride (Vancomycin Inj/ NS 250 ml Inj) 250 ml @ 250 mls/hr Q12H IV ; Start 12/02/16 at 13:00; Stop 12/02/16 at 13:00; Status DC Miscellaneous Information SPECIFIC LAB TO BE ANDRES... ONCE ONCE XX ; Start at 12:45; Stop 12/03/16 at 12:45; Status DC Levofloxacin (Levaquin) 500 mg DAILY PO Last administered on 12/07/16 07:59; Start 12/03/16 at 09:00; Stop 12/07/16 at 16:17; Status DC Levofloxacin (Levaquin) 500 mg ONCE ONCE PO Last administered on 12/02/16 10: 42; Start 12/02/16 at 10:00; Stop 12/02/16 at 10:01; Status DC Atropine Sulfate (Atropine 1% Opth Soln) 1 drop DAILY@12 RIGHT EYE Last administered on 12/06/16 12:00; Start 12/03/16 at 12:00; Stop 12/06/16 at 23:00 ; Status DC Tobramycin/ Dexamethasone (Tobradex Opth Susp) 1 drop TID RIGHT EYE Last administered on 12/11/16 09:21; Start 12/03/16 at 13:00 Prednisone (Deltasone) 10 mg DAILY PO Last administered on 12/05/16 09:30; Start 12/04/16 at 09:00; Stop 12/05/16 at 10:18; Status DC Prednisone (Deltasone) 10 mg ONCE ONCE PO Last administered on 12/03/16 12:11 ; Start 12/03/16 at 11:00; Stop 12/03/16 at 11:01; Status DC Albuterol/ Ipratropium (Duoneb Neb) 1 ampule Q2HR NEB PRN NEB SOB/wheezing; Start 12/04/16 at 16:00; Stop 12/05/16 at 10:25; Status DC Albuterol/ Ipratropium (Duoneb Neb) 1 ampule Q4HR WHILE AWAKE NEB NEB Last administered on 12/05/16 08:13; Start 12/04/16 at 16:00; Stop 12/05/16 at 10:25 ; Status DC Docusate Sodium (Colace) 100 mg BID PO Last administered on 12/11/16 09:15; Start 12/04/16 at 16:30 Magnesium Hydroxide (Milk Of Magnesia Liq) 30 ml DAILY PRN PO constipation Last administered on 12/07/16 09:13; Start 12/04/16 at 16:30 Bisacodyl (Dulcolax Ec) 10 mg DAILY PRN PO constipation Last administered on 09:13; Start 12/04/16 at 16:30 Morphine Sulfate (Oramorph Sr) 15 mg Q8HR PO Last administered on 12/10/16 22: 34; Start 12/05/16 at 14:00 Methylprednisolone Sodium Succinate (SoluMEDROL INJ) 40 mg Q6HR IV PUSH ; Start 12/05/16 at 12:00; Stop 12/05/16 at 12:00; Status DC Albuterol/ Ipratropium 1 ampule 1 ampule Q6HR NEB PRN NEB SOB/wheezing Last administered on 12/06/16 13:11; Start 12/05/16 at 16:00; Stop 12/08/16 at 18:56 ; Status DC Potassium Chloride/Sodium Chloride (1/2 NS + KCl 20 Meq Inj) 1,000 ml @ 50 mls/ hr Q20H IV Last administered on 12/05/16 17:05; Start 12/05/16 at 16:15; Stop 12/06/16 at 15:47; Status DC Sodium Biphosphate/ Sodium Phosphate (Fleets Enema (Adult)) 133 ml DAILY PRN ND constipation Last administered on 12/06/16 13:46; Start 12/06/16 at 12:00 Magnesium Citrate (Citroma Liq) 300 ml ONCE ONCE PO Last administered on 19:26; Start 12/07/16 at 16:45; Stop 12/07/16 at 16:46; Status DC Sodium Biphosphate/ Sodium Phosphate 133 ml 133 ml ONCE ONCE RECTAL Last administered on 12/07/16 19:26; Start 12/07/16 at 16:45; Stop 12/07/16 at 16:46 ; Status DC Sodium Chloride (NS 1000 ml Inj) 1,000 ml @ 75 mls/hr [id number] IV Last administered on 12/08/16 12:45; Start 12/08/16 at 12:45; Stop 12/09/16 at 11:04 ; Status DC Albuterol/ Ipratropium (Duoneb Neb) 1 ampule Q4HR WHILE AWAKE NEB NEB Last administered on 12/10/16 21:36; Start 12/08/16 at 20:00 Guaifenesin (Mucinex Er) 600 mg BID PO Last administered on 12/11/16 09:15; Start 12/08/16 at 21:00 Pneumococcal Polyvalent Vaccine (Pneumovax-23 Inj) 25 mcg ONCE ONCE IM ; Start 12/10/16 at 10:00; Stop 12/10/16 at 10:01; Status DC Influenza Virus Vaccine 0.5 ml 0.5 ml ONCE ONCE IM ; Start 12/09/16 at 09:00; Stop 12/09/16 at 09:06; Status DC Sodium Chloride (09/11 NS 1000 ml Inj) 1,000 ml @ 100 mls/hr Q10H IV Last administered on 12/11/16 02:07; Start 12/09/16 at 11:15 Loratadine (Claritin) 5 mg DAILY PO Last administered on 12/11/16 09:16; Start 12/09/16 at 11:15 Calamine/Pramoxine (Caladryl Lotion) 1 applic Q12HR TOPICAL Last administered on 12/11/16 09:21; Start 12/09/16 at 11:15 Miscellaneous (Pill Splitter) 1 ea UNSCH PRN OTHER SEE LABEL COMMENTS; Start at 11:30 Morphine Sulfate (Msir) 15 mg Q4H PRN PO PAIN 1-5 Last administered on 04:34; Start 12/10/16 at 01:15 Morphine Sulfate (Msir) 30 mg Q4H PRN PO PAIN 6-10 Last administered on 08:54; Start 12/10/16 at 01:15 Haloperidol Lactate (Haldol Inj) 2 mg ONCE ONCE IM Last administered on 04:30; Start 12/11/16 at 04:30; Stop 12/11/16 at 04:31; Status DC Current Medications Sodium Chloride 1,000 ml @ 999 mls/hr BOLUS ONCE IV Last administered on 12/01 21:36; Start 12/01/16 at 21:15; Stop 12/01/16 at 22:15; Status DC Aztreonam 1000 mg/ Sodium Chloride 100 ml @ 200 mls/hr ONCE ONCE IV Last administered on 12/01/16 22:45; Start 12/01/16 at 22:30; Stop 12/01/16 at 22:59 ; Status DC Vancomycin HCl/ Sodium Chloride (Vancomycin Inj/ NS 250 ml Inj) 250 ml @ 250 mls/hr ONCE ONCE IV Last administered on 12/01/16 22:32; Start 12/01/16 at 22 :30; Stop 12/01/16 at 23:29; Status DC Ondansetron HCl (Zofran Inj) 4 mg Q6H PRN IV NAUSEA OR VOMITING; Start at 23:00 Acetaminophen (Tylenol) 650 mg Q4H PRN PO Temp>101F, Headache Last administered on 12/11/16 09:18; Start 12/01/16 at 23:00 Sodium Chloride (NS Flush) 2 ml BID IV FLUSH Last administered on 12/09/16 23: 25; Start 12/02/16 at 09:00 Sodium Chloride 2 ml 2 ml UNSCH PRN IVF FLUSH AFTER USING IV ACCESS; Start at 23:00 Vancomycin HCl 1000 mg/Sodium Chloride 250 ml @ 250 mls/hr Q12H IV ; Start at 10:00; Stop 12/02/16 at 10:00; Status DC Aztreonam/Sodium Chloride (Azactam Inj/NS Inj) 100 ml @ 200 mls/hr Q12H IV ; Start 12/02/16 at 11:00; Stop 12/02/16 at 11:00; Status DC Atropine Sulfate (Atropine 1% Opth Soln) 1 drop TID RIGHT EYE Last administered on 12/03/16 09:36; Start 12/02/16 at 09:00; Stop 12/03/16 at 10:10 ; Status DC Epleronone (Inspra) 25 mg DAILY PO Last administered on 12/11/16 09:16; Start 12/02/16 at 09:00 Escitalopram Oxalate (Lexapro) 20 mg DAILY PO Last administered on 12/11/16 09: 16; Start 12/02/16 at 09:00 Morphine Sulfate (Oramorph Sr) 30 mg Q8HR PO Last administered on 12/05/16 05: 45; Start 12/02/16 at 06:00; Stop 12/05/16 at 10:16; Status DC Torsemide 20 mg 20 mg DAILY PO Last administered on 12/08/16 09:16; Start at 09:00; Stop 12/08/16 at 18:56; Status DC Pharmacy Profile Note 0 ml @ 0 mls/hr UNSCH OTHER ; Start 12/01/16 at 23:30; Stop 12/02/16 at 09:37; Status DC Vancomycin HCl 1000 mg/Sodium Chloride 250 ml @ 250 mls/hr ONCE ONCE IV Last administered on 12/02/16 00:39; Start 12/02/16 at 00:30; Stop 12/02/16 at 01:29 ; Status DC Vancomycin HCl/ Sodium Chloride (Vancomycin Inj/ NS 250 ml Inj) 250 ml @ 250 mls/hr Q12H IV ; Start 12/02/16 at 13:00; Stop 12/02/16 at 13:00; Status DC Miscellaneous Information SPECIFIC LAB TO BE ANDRES... ONCE ONCE XX ; Start at 12:45; Stop 12/03/16 at 12:45; Status DC Levofloxacin (Levaquin) 500 mg DAILY PO Last administered on 12/07/16 07:59; Start 12/03/16 at 09:00; Stop 12/07/16 at 16:17; Status DC Levofloxacin (Levaquin) 500 mg ONCE ONCE PO Last administered on 12/02/16 10: 42; Start 12/02/16 at 10:00; Stop 12/02/16 at 10:01; Status DC Atropine Sulfate (Atropine 1% Opt Soln) 1 drop DAILY@12 RIGHT EYE Last administered on 12/06/16 12:00; Start 12/03/16 at 12:00; Stop 12/06/16 at 23:00 ; Status DC Tobramycin/ Dexamethasone (Tobradex Opth Susp) 1 drop TID RIGHT EYE Last administered on 12/11/16 09:21; Start 12/03/16 at 13:00 Prednisone (Deltasone) 10 mg DAILY PO Last administered on 12/05/16 09:30; Start 12/04/16 at 09:00; Stop 12/05/16 at 10:18; Status DC Prednisone (Deltasone) 10 mg ONCE ONCE PO Last administered on 12/03/16 12:11 ; Start 12/03/16 at 11:00; Stop 12/03/16 at 11:01; Status DC Albuterol/ Ipratropium (Duoneb Neb) 1 ampule Q2HR NEB PRN NEB SOB/wheezing; Start 12/04/16 at 16:00; Stop 12/05/16 at 10:25; Status DC Albuterol/ Ipratropium (Duoneb Neb) 1 ampule Q4HR WHILE AWAKE NEB NEB Last administered on 12/05/16 08:13; Start 12/04/16 at 16:00; Stop 12/05/16 at 10:25 ; Status DC Docusate Sodium (Colace) 100 mg BID PO Last administered on 12/11/16 09:15; Start 12/04/16 at 16:30 Magnesium Hydroxide (Milk Of Magnesia Liq) 30 ml DAILY PRN PO constipation Last administered on 12/07/16 09:13; Start 12/04/16 at 16:30 Bisacodyl (Dulcolax Ec) 10 mg DAILY PRN PO constipation Last administered on 09:13; Start 12/04/16 at 16:30 Morphine Sulfate (Oramorph Sr) 15 mg Q8HR PO Last administered on 12/10/16 22: 34; Start 12/05/16 at 14:00 Methylprednisolone Sodium Succinate (SoluMEDROL INJ) 40 mg Q6HR IV PUSH ; Start 12/05/16 at 12:00; Stop 12/05/16 at 12:00; Status DC Albuterol/ Ipratropium 1 ampule 1 ampule Q6HR NEB PRN NEB SOB/wheezing Last administered on 12/06/16 13:11; Start 12/05/16 at 16:00; Stop 12/08/16 at 18:56 ; Status DC Potassium Chloride/Sodium Chloride (1/2 NS + KCl 20 Meq Inj) 1,000 ml @ 50 mls/ hr Q20H IV Last administered on 12/05/16 17:05; Start 12/05/16 at 16:15; Stop 12/06/16 at 15:47; Status DC Sodium Biphosphate/ Sodium Phosphate (Fleets Enema (Adult)) 133 ml DAILY PRN ND constipation Last administered on 12/06/16 13:46; Start 12/06/16 at 12:00 Magnesium Citrate (Citroma Liq) 300 ml ONCE ONCE PO Last administered on 19:26; Start 12/07/16 at 16:45; Stop 12/07/16 at 16:46; Status DC Sodium Biphosphate/ Sodium Phosphate 133 ml 133 ml ONCE ONCE RECTAL Last administered on 12/07/16 19:26; Start 12/07/16 at 16:45; Stop 12/07/16 at 16:46 ; Status DC Sodium Chloride (NS 1000 ml Inj) 1,000 ml @ 75 mls/hr [id number] IV Last administered on 12/08/16 12:45; Start 12/08/16 at 12:45; Stop 12/09/16 at 11:04 ; Status DC Albuterol/ Ipratropium (Duoneb Neb) 1 ampule Q4HR WHILE AWAKE NEB NEB Last administered on 12/10/16 21:36; Start 12/08/16 at 20:00 Guaifenesin (Mucinex Er) 600 mg BID PO Last administered on 12/11/16 09:15; Start 12/08/16 at 21:00 Pneumococcal Polyvalent Vaccine (Pneumovax-23 Inj) 25 mcg ONCE ONCE IM ; Start 12/10/16 at 10:00; Stop 12/10/16 at 10:01; Status DC Influenza Virus Vaccine 0.5 ml 0.5 ml ONCE ONCE IM ; Start 12/09/16 at 09:00; Stop 12/09/16 at 09:06; Status DC Sodium Chloride (09/11 NS 1000 ml Inj) 1,000 ml @ 100 mls/hr Q10H IV Last administered on 12/11/16 02:07; Start 12/09/16 at 11:15 Loratadine (Claritin) 5 mg DAILY PO Last administered on 12/11/16 09:16; Start 12/09/16 at 11:15 Calamine/Pramoxine (Caladryl Lotion) 1 applic Q12HR TOPICAL Last administered on 12/11/16 09:21; Start 12/09/16 at 11:15 Miscellaneous (Pill Splitter) 1 ea UNSCH PRN OTHER SEE LABEL COMMENTS; Start at 11:30 Morphine Sulfate (Msir) 15 mg Q4H PRN PO PAIN 1-5 Last administered on 04:34; Start 12/10/16 at 01:15 Morphine Sulfate (Msir) 30 mg Q4H PRN PO PAIN 6-10 Last administered on 08:54; Start 12/10/16 at 01:15 Haloperidol Lactate (Haldol Inj) 2 mg ONCE ONCE IM Last administered on 04:30; Start 12/11/16 at 04:30; Stop 12/11/16 at 04:31; Status DC Family History Noncontributory Social History Thoracolumbar No alcohol No illicit drug use Physical Exam Vital Signs Vital Signs Date Time Temp Pulse Resp B/P Pulse Ox O2 Delivery O2 Flow Rate FiO2 12/11/16 08:42 99.2 88 24 132/63 90 12/11/16 08:03 Nasal Cannula 2.00 12/11/16 05:40 16 12/11/16 04:00 99.2 87 18 138/83 94 12/11/16 00:22 16 12/11/16 00:00 99.2 88 18 98/57 93 12/10/16 21:36 93 Nasal Cannula 3.00 12/10/16 20:00 98.4 89 19 118/58 92 12/10/16 18:50 99.5 12/10/16 16:00 98.7 84 16 113/66 94 12/10/16 12:00 97.1 71 16 98/56 95 Physical Exam The patient is alert, awake and oriented to time, place and person. Speech is fluent. Cranial nerve examination: pupils to be equal, round and reactive to light. Extra-ocular movements are intact. Facial motor and sensory function are normal and symmetrical. Gross hearing appears intact. Sternocleidomastoid and trapezius muscles are symmetrical. Other cranial nerves are intact. Neck is soft and supple with a good range of motion without pain. Muscle strength is normal in all muscle groups of both upper extremities. Lower extremity strength is decreased, diffusely. Left tibialis anterior is 4/5 Sensory examination is intact to light touch and pin prick in both the upper and decreased in his lower extremities. Deep tendon reflexes are symmetrical in both upper and lower extremities. There is a bilateral plantar flexion response. Cerebellar examination is unremarkable Laboratory Laboratory Tests Test 12/10/16 21:10 White Blood Count 8.9 Red Blood Count 5.28 Hemoglobin 15.7 Hematocrit 47.9 Mean Corpuscular Volume 90.6 Mean Corpuscular Hemoglobin 29.8 Mean Corpuscular Hemoglobin 32.9 Concent Red Cell Distribution Width 16.2 Platelet Count 134 Mean Platelet Volume 9.0 Neutrophils (%) (Auto) 78.3 Lymphocytes (%) (Auto) 4.7 Monocytes (%) (Auto) 11.9 Eosinophils (%) (Auto) 4.5 Basophils (%) (Auto) 0.6 Neutrophils # (Auto) 7.0 Lymphocytes # (Auto) 0.4 Monocytes # (Auto) 1.1 Eosinophils # (Auto) 0.4 Basophils # (Auto) 0.1 CBC Comment DIFF FINAL Differential Comment Result Diagram: 12/10/16 2110 12/10/16 0650 Imaging Last Impressions Thoracic Spine MRI 12/10/16 0000 Signed Impressions: Service Date/Time: Saturday, December 10, 2016 15:05 - CONCLUSION: 1. Moderate degenerative disc disease in the thoracic spine with mild kyphosis. No canal or significant foraminal stenosis. No cord impingement. Pravin Gerard MD Chest X-Ray 12/10/16 0000 Signed Impressions: Service Date/Time: Saturday, December 10, 2016 21:35 - CONCLUSION: 1. Bilateral mostly basilar airspace disease similar to December 03. Previous median sternotomy. Pravin Gerard MD Cervical Spine MRI 12/10/16 0000 Signed Impressions: Service Date/Time: Saturday, December 10, 2016 15:05 - CONCLUSION: 1. At C3-4 there is focal moderate stenosis from degenerative disc disease with mild flattening of the cord. Mild bilateral foraminal encroachment. 2. At C4-5 there is mild canal stenosis and foraminal encroachment. 3. No fracture or spondylolisthesis. Moderate to severe degenerative disc disease throughout the cervical cord. 1. Pravin Gerard MD Abdomen X-Ray 12/08/16 0800 Signed Impressions: Service Date/Time: Thursday, December 08, 2016 08:37 - CONCLUSION: Interval improvement with less stool. Eddie Cabrera MD FACR Brain MRI 12/05/16 0000 Signed Impressions: Service Date/Time: Monday, December 05, 2016 19:34 - CONCLUSION: 1. Moderate periventricular white matter small vessel ischemic changes bilaterally. 2. Mild cerebral atrophy. 3. Air within the right globe. 4. No acute infarct, acute hemorrhage, mass effect or extra axial fluid collections. 5. Mucosal thickening within the left maxillary and ethmoid sinuses. 6. Significant spinal stenosis at C3-4 which is incompletely evaluated on this examination. Joseph Mendosa MD Chest CT 12/03/16 0000 Signed Impressions: Service Date/Time: Saturday, December 03, 2016 19:49 - CONCLUSION: 1. Focal airspace disease posterior segment left upper lobe and patchy airspace disease in the lower lobes most characteristic of bronchopneumonia. 2. There is also underlying basilar pulmonary fibrosis with mild honeycombing at the right lung base. Chronic basilar pleural thickening also present. 3. Coronary disease status post CABG. Pravin Gerard MD Head CT 12/01/161 Signed Impressions: Service Date/Time: Thursday, December 01, 2016 21:37 - CONCLUSION: No acute intracranial findings. Rohit Parker MD Attending Statement I have reviewed his clinical and further studies. neuro checks in a serial fashion. Recommend that he undergoes an MRI of her lumbar spine Giving his age and comorbidities I recommend preoperative medical evaluation and clearance Respiratory. pulmonary toilette, nasotracheal suction, and breathing treatments with nebulizers. PT and OT eval Nutrition. Oral diet Renal. monitor closely urine output, BUN and creatinine ID monitor for signs of infection Protonix for stress ulcer prophylaxis Mayo hose and SCD's for DVT prophylaxis Rodrigo Bhat MD Dec 11, 2016 11:55
[2016-12-11] MEDS ORDERED: HALOPERIDOL LACTATE 5 MG/ML AMP IM PRN (16:45)
--- NOTE | 2016-12-11 16:53 | PD.CONS ---
Provisional Diagnosis Admission Date Dec 01, 2016 at 22:52 [place] I. Delirium due to underlying medical conditions, R/O major neurocognitive disorder [place] II. Deferred [place] III. HTN, DM, CAD, CHF [place] IV. Multiple medical chronic conditions [place] V. 50 History of Present Illness Service Psychiatry Consult Requested By Primary Care Physician Rohit Lobo M.D. HPI The patient is a 70 year old man, domicile with his , retired, without any previous psychiatric history, no previous psychiatric hospitalizations, no previous suicidal attempts, who was brought in by his due to Acute encephalopathy, he complaint of headache, and confusion, also had productive cough, denied Chest pain, or shortness of breath, no abdominal pain, no focal weakness no numbness, he had a fall before coming to ER, as we know he has Hypertension, DM II diet controlled, CAD status post CABG, CHF by history, he is been hospitalized and given antibiotics for Pneumonia. Patient was consulted to psychiatry due to agitation and hostility in the medical floor. On psychiatric evaluation today patient is found calm, cooperative and pleasant , but somewhat lethargic at hypoactive. Patient is pleasantly confused. Patient reports good mood, denies depressive symptoms, he denies anxiety, he denies perceptual disturbances, he denies suicidal and homicidal ideation, he denies visual and auditory hallucinations. Patient denies previous episodes of aggressive and agitation stating that "I am a peaceful person". Patient knows that he is in the hospital, but he doesn't know the name and location. He doesn 't know the reason of his hospitalization. Patient is partially oriented in time he states is December 04, 2016. Patient says that he wants to continue his medical hospitalization and get better of his medical conditions "because I want to go back home with my ". As per nurse in charge patient had episodic agitation and disorganized behavior previously. Review of Systems Constitutional: DENIES: Diaphoretic episodes, Fatigue, Fever, Weight gain, Weight loss, Chills, Dizziness, Change in appetite, Night Sweats Endocrine: DENIES: Heat/cold intolerance, Polydipsia, Polyuria, Polyphagia Eyes: DENIES: Blurred vision, Diplopia, Eye inflammation, Eye pain, Vision loss , Photosensitivity, Double Vision Ears, nose, mouth, throat: DENIES: Tinnitus, Hearing loss, Vertigo, Nasal discharge, Oral lesions, Throat pain, Hoarseness, Ear Pain, Running Nose, Epistaxis, Sinus Pain, Toothache, Odynophagia Respiratory: COMPLAINS OF: Cough, DENIES: Apneas, Snoring, Wheezing, Hemoptysis, Sputum production, Shortness of breath Genitourinary: DENIES: Sexual dysfunction, Urinary frequency, Urinary incontinence, Urgency, Hematuria, Dysuria, Nocturia, Penile Discharge, Testicular Pain, Testicular Swelling Musculoskeletal: DENIES: Joint pain, Muscle aches, Stiffness, Joint Swelling, Back pain, Neck pain Integumentary: DENIES: Abnormal pigmentation, Nail changes, Pruritus, Rash Neurologic: DENIES: Abnormal gait, Headache, Localized weakness, Paresthesias, Seizures, Speech Problems, Tremor, Poor Balance Psychiatric: COMPLAINS OF: Confusion, DENIES: Anxiety, Mood changes, Depression, Hallucinations, Agitation, Suicidal Ideation, Homicidal Ideation, Delusions Past Family Social History Coded Allergies: Bactrim (Verified Allergy, Severe, 12/01/16) Penicillin (Verified Allergy, Severe, 12/01/16) Tramadol (Verified Allergy, Severe, 12/01/16) Reported Medications Montelukast (Singulair)5 Mg ChewUnknown Dose CHEW DAILY #30 TAB Ref 0 12/01/16 Prednisone 10 Mg Tab10 Mg PO DAILY Ref 0 12/01/16 Torsemide 20 Mg Tab20 Mg PO DAILY #30 TAB Ref 0 12/01/16 Eplerenone 25 Mg Tab25 Mg PO DAILY #30 TAB Ref 0 12/01/16 Prasterone Powder (Dehydroepiandrosterone Powder)1 Pow Pow50 Mg PO BID 12/01/16 Atropine Opth Drops 1% Soln1 Drop RIGHT EYE TID #2 ML Ref 0 12/01/16 Escitalopram 20 Mg Tab20 Mg PO DAILY #30 TAB Ref 0 12/01/16 Morphine ER (Ms Contin)30 Mg Tab30 Mg PO TID Ref 0 12/01/16 Current Medications Medications (Trade) Dose Ordered Sig/Guerrero Route Start Time Stop Time Status Last Admin (Zofran Inj) 4 mg Q6H PRN IV 12/01/16 23:00 (Tylenol) 650 mg Q4H PRN PO 12/01/16 23:00 12/11/16 09:18 (NS Flush) 2 ml BID IV FLUSH 12/02/16 09:00 12/09/16 23:25 (NS Flush) 2 ml UNSCH PRN IVF 12/01/16 23:00 (Inspra) 25 mg DAILY PO 12/02/16 09:00 12/11/16 09:16 (Lexapro) 20 mg DAILY PO 12/02/16 09:00 12/11/16 09:16 (Tobradex Opth Susp) 1 drop TID RIGHT EYE 12/03/16 13:00 12/11/16 14:02 (Colace) 100 mg BID PO 12/04/16 16:30 12/11/16 09:15 (Milk Of Magnesia Liq) 30 ml DAILY PRN PO 12/04/16 16:30 12/07/16 09:13 (Dulcolax Ec) 10 mg DAILY PRN PO 12/04/16 16:30 12/07/16 09:13 (Oramorph Sr) 15 mg Q8HR PO 12/05/16 14:00 12/11/16 14:00 (Fleets Enema (Adult)) 133 ml DAILY PRN [place] 12/06/16 12:00 12/06/16 13:46 Guaifenesin 600 mg 600 mg BID PO 12/08/16 21:00 12/11/16 09:15 (1/2 NS 1000 ml Inj) 1,000 ml @ 100 mls/hr Q10H IV 12/09/16 11:15 12/11/16 14:03 (Claritin) 5 mg DAILY PO 12/09/16 11:15 12/11/16 09:16 (Caladryl Lotion) 1 applic Q12HR TOPICAL 12/09/16 11:15 12/11/16 09:21 (Pill Splitter) 1 ea UNSCH PRN OTHER 12/09/16 11:30 (Msir) 15 mg Q4H PRN PO 12/10/16 01:15 12/11/16 04:34 (Msir) 30 mg Q4H PRN PO 12/10/16 01:15 12/10/16 08:54 Family History Patient denies Social History He was born in [place], he lives with his in [place], is retired, 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 [place], his highest level of education is college Physical Exam At this moment on physical exam there is no agitation, no EPS, hypoactivity is present, but no rigidity, no tremors Vital Signs Vital Signs Date Time Temp Pulse Resp B/P Pulse Ox O2 Delivery O2 Flow Rate FiO2 12/11/16 12:03 93 Nasal Cannula 2.00 12/11/16 12:00 97.9 93 20 163/77 I/O 12/10/16 12/10/16 12/11/16 08:00 16:00 00:00 Intake Total 120 ml 2505 ml 240 ml Output Total 200 ml 300 ml 450 ml Balance -80 ml 2205 ml -210 ml Lab Results WBc 8.8, HGB 5.2, HCT 15.7, NA 37, K 3.8 Mental Status Examination Appearance Elderly man, age appearing, [facility], good hygiene, a little bit lethargic, confused, but calm and cooperative Speech: Slow Orientation: Person, Place (partially), Time (partially) Memory: Impaired (describe) Thought Process: Goal Directed, Loose Association Thought Content: Unremarkable Hallucination Type: None Suicidal Ideation: No Previous Suicide Attempts: No Homicidal Ideation: No Previous Homicide Attempts: No Insight: Poor Affect: Good Mood: Appropriate Motor Activity: Normal gait Assessment & Plan Problem List: (1) Delirium due to another medical condition Assessment & Plan: The moment of this evaluation patient seems to be pleasantly confused, hyperactive, kind of lethargic, but he is calm and superficially cooperative. Patient reports good mood, denies depression, denies anxiety, denies perceptual disturbances, denies suicidal and homicidal ideation, denies visual and auditory hallucinations. Agitation and disorganized behavior has been reported by nurses. Presentation could be consistent with delirium due to underlying pneumonia and electrolyte imbalance. Now, at this point is difficult to say if underlying cognitive impairment is secondary to delirium or there is also an ongoing major neurocognitive process. Will order Seroquel 25 mg twice a day for behavior control and agitation. Will order Haldol 1 mg IV/IM every 3 hours when necessary aggressive behavior and agitation. Patient does not meet criteria for psychiatric admission at this moment. We'll follow-up. ICD Code: F05 Assessment & Plan Estimated LOS: Killian Whitmore MD Dec 11, 2016 16:53
[2016-12-12] VITALS (9 sets, daily range): BP systolic 98–151; BP diastolic 51–82; PULSE 86–104; RESP 18; TEMP 96.8–99.3; O2SAT 91–96
[2016-12-12] MEDS: MORPHINE SULFATE 15 MG CONTROLLED RELEASE TAB PO SCH ×3 (05:32→21:38)
--- NOTE | 2016-12-12 07:56 | HHI.PR ---
Subjective Remarks This is a pleasant 70 y/o Male who was brought in by his due to Acute encephalopathy, he complaint of headache, and confusion, also had productive cough, denied Chest pain, or shortness of breath, no abdominal pain, no focal weakness no numbness, he had a fall before coming to ER, as we know he has Hypertension, DM II diet controlled, CAD status post CABG, CHF by history, he is been hospitalized and given antibiotics for Pneumonia. 12/09 His Mrs. Umanzor in the room, will continue recommendations performed by Speech Therapy specialist for feeding. 12/10 Seen in his bedroom in the presence of his she states he has Cervical Compression and is producing him back pain, bilateral foot drop, he is Lethargic secondary to Morphine given. 12/11 Stable seen in his bedroom, seen in the presence of his Mrs. Umanzor also nurse Miss Meade present all the time while I was in the room, his insist he has foot drop, also some Encephalopathy, when I talked with the patient he is Alert and oriented, had some Respiratory insufficiency, he was given Pain medicine and Haldol during the night also placed on Restraints, at this time recommended to remove Restraints at this time and was done, also not to continue with Haldol. 12/12 Seen in his bedroom in the presence of his Mrs. Umanzor also nurse Miss Meade appreciated, patient stable no complaint for me alert and oriented on evaluation as per his he was confused during the night, seen by Psychiatry specialist, Delirium is been highlighted, recommended Seroquel 25 mg BID and Haldol as needed, his asked to remove this medicines, as discussed with Neurosurgery Doctor Home asked for Pre Op evaluation asked for curriculum and instruction specialist, in a patient with CAD, Bypass surgery, AVR, No recent ischemic evaluation, Severe Pulmonary Hypertension Lower extremity edema, will need an Stress test versus Cardiac Cath his asking for Cardiac Cath. Objective Vital Signs Date Time Temp Pulse Resp B/P Pulse Ox O2 Delivery O2 Flow Rate FiO2 12/12/16 04:00 96.9 90 18 139/67 91 12/12/16 00:00 96.8 104 18 151/82 91 12/11/16 21:11 93 Nasal Cannula 4.00 12/11/16 20:00 97.8 89 18 139/63 92 12/11/16 16:00 97.9 88 20 143/71 92 12/11/16 12:03 93 Nasal Cannula 2.00 12/11/16 12:00 97.9 93 20 163/77 89 12/11/16 08:42 99.2 88 24 132/63 90 12/11/16 08:03 Nasal Cannula 2.00 I/O 12/11/16 12/11/16 12/11/16 12/12/16 12/12/16 12/12/16 07:00 15:00 23:00 07:00 15:00 23:00 Intake Total 240 ml 120 ml 2266 ml 1218 ml Output Total 1000 ml 1100 ml Balance -760 ml -980 ml 2266 ml 1218 ml Intake Oral 240 ml 120 ml IV Total 2266 ml 1218 ml Output Urine Total 1000 ml 1100 ml # Voids 2 4 # Bowel Movements 0 Result Diagram: 12/10/16210912/10/16 0650 Imaging Last Impressions Thoracic Spine MRI 12/10/16 0000 Signed Impressions: Service Date/Time: Saturday, December 10, 2016 15:05 - CONCLUSION: 1. Moderate degenerative disc disease in the thoracic spine with mild kyphosis. No canal or significant foraminal stenosis. No cord impingement. Pravin Gerard MD Chest X-Ray 12/10/16 0000 Signed Impressions: Service Date/Time: Saturday, December 10, 2016 21:35 - CONCLUSION: 1. Bilateral mostly basilar airspace disease similar to December 03. Previous median sternotomy. Pravin Gerard MD Cervical Spine MRI 12/10/16 0000 Signed Impressions: Service Date/Time: Saturday, December 10, 2016 15:05 - CONCLUSION: 1. At C3-4 there is focal moderate stenosis from degenerative disc disease with mild flattening of the cord. Mild bilateral foraminal encroachment. 2. At C4-5 there is mild canal stenosis and foraminal encroachment. 3. No fracture or spondylolisthesis. Moderate to severe degenerative disc disease throughout the cervical cord. 1. Pravin Gerard MD Abdomen X-Ray 12/08/16 0800 Signed Impressions: Service Date/Time: Thursday, December 08, 2016 08:37 - CONCLUSION: Interval improvement with less stool. Eddie Cabrera MD FACR Brain MRI 12/05/16 0000 Signed Impressions: Service Date/Time: Monday, December 05, 2016 19:34 - CONCLUSION: 1. Moderate periventricular white matter small vessel ischemic changes bilaterally. 2. Mild cerebral atrophy. 3. Air within the right globe. 4. No acute infarct, acute hemorrhage, mass effect or extra axial fluid collections. 5. Mucosal thickening within the left maxillary and ethmoid sinuses. 6. Significant spinal stenosis at C3-4 which is incompletely evaluated on this examination. Joseph Mendosa MD Chest CT 12/03/16 0000 Signed Impressions: Service Date/Time: Saturday, December 03, 2016 19:49 - CONCLUSION: 1. Focal airspace disease posterior segment left upper lobe and patchy airspace disease in the lower lobes most characteristic of bronchopneumonia. 2. There is also underlying basilar pulmonary fibrosis with mild honeycombing at the right lung base. Chronic basilar pleural thickening also present. 3. Coronary disease status post CABG. Pravin Gerard MD Head CT 12/01/161 Signed Impressions: Service Date/Time: Thursday, December 01, 2016 21:37 - CONCLUSION: No acute intracranial findings. Rohit Parker MD Procedures No procedures performed Other Results Laboratory Tests Test 12/09/16 12/10/16 12/10/16 05:40 06:50 21:10 Phosphorus Level 3.5 MG/DL Magnesium Level 2.8 MG/DL Total Bilirubin 0.9 MG/DL Aspartate Amino Transf 17 U/L (AST/SGOT) Alanine Aminotransferase 25 U/L (ALT/SGPT) Alkaline Phosphatase 75 U/L Total Protein 6.3 GM/DL Albumin 2.7 GM/DL Sodium Level 137 MEQ/L Potassium Level 3.8 MEQ/L Chloride Level 95 MEQ/L Carbon Dioxide Level 36.2 MEQ/L Anion Gap 6 MEQ/L Blood Urea Nitrogen 14 MG/DL Creatinine 0.88 MG/DL Estimat Glomerular Filtration 85 ML/MIN Rate Random Glucose 88 MG/DL Calcium Level 8.5 MG/DL White Blood Count 8.9 TH/MM3 Red Blood Count 5.28 MIL/MM3 Hemoglobin 15.7 GM/DL Hematocrit 47.9 % Mean Corpuscular Volume 90.6 FL Mean Corpuscular Hemoglobin 29.8 PG Mean Corpuscular Hemoglobin 32.9 % Concent Red Cell Distribution Width 16.2 % Platelet Count 134 TH/MM3 Mean Platelet Volume 9.0 FL Neutrophils (%) (Auto) 78.3 % Lymphocytes (%) (Auto) 4.7 % Monocytes (%) (Auto) 11.9 % Eosinophils (%) (Auto) 4.5 % Basophils (%) (Auto) 0.6 % Neutrophils # (Auto) 7.0 TH/MM3 Lymphocytes # (Auto) 0.4 TH/MM3 Monocytes # (Auto) 1.1 TH/MM3 Eosinophils # (Auto) 0.4 TH/MM3 Basophils # (Auto) 0.1 TH/MM3 CBC Comment DIFF FINAL Differential Comment Objective Remarks GENERAL: No apparent distress. SKIN: Abdominal rash. scaly areas in his face. HEAD: Atraumatic. Normocephalic. No temporal or scalp tenderness. EYES: Pupils equal round and reactive. Extraocular motions intact. No scleral icterus. No injection or drainage. ENT: No lymphadenopathy. NECK: Trachea midline. No JVD or lymphadenopathy. Supple, nontender, no meningeal signs. CARDIOVASCULAR: Regular rate and rhythm without murmurs, gallops, or rubs. RESPIRATORY: Decrease breath sounds, no crackles of wheezing. GASTROINTESTINAL: Abdomen soft, non-tender, nondistended. MUSCULOSKELETAL: Extremities without clubbing, cyanosis, or edema. NEUROLOGICAL: Alert and oriented x 3. Medications and IVs Current Medications Medications (Trade) Dose Ordered Sig/Guerrero Route Start Time Stop Time Status Last Admin (Zofran Inj) 4 mg Q6H PRN IV 12/01/16 23:00 (Tylenol) 650 mg Q4H PRN PO 12/01/16 23:00 12/11/16 19:32 (NS Flush) 2 ml BID IV FLUSH 12/02/16 09:00 12/09/16 23:25 (NS Flush) 2 ml UNSCH PRN IVF 12/01/16 23:00 (Inspra) 25 mg DAILY PO 12/02/16 09:00 12/11/16 09:16 (Lexapro) 20 mg DAILY PO 12/02/16 09:00 12/11/16 09:16 (Tobradex Opth Susp) 1 drop TID RIGHT EYE 12/03/16 13:00 12/11/16 18:00 (Colace) 100 mg BID PO 12/04/16 16:30 12/11/16 21:35 (Milk Of Magnesia Liq) 30 ml DAILY PRN PO 12/04/16 16:30 12/07/16 09:13 (Dulcolax Ec) 10 mg DAILY PRN PO 12/04/16 16:30 12/07/16 09:13 (Oramorph Sr) 15 mg Q8HR PO 12/05/16 14:00 12/12/16 05:32 (Fleets Enema (Adult)) 133 ml DAILY PRN [place] 12/06/16 12:00 12/06/16 13:46 Guaifenesin 600 mg 600 mg BID PO 12/08/16 21:00 12/11/16 21:36 (1/2 NS 1000 ml Inj) 1,000 ml @ 100 mls/hr Q10H IV 12/09/16 11:15 12/11/16 23:15 (Claritin) 5 mg DAILY PO 12/09/16 11:15 12/11/16 09:16 (Caladryl Lotion) 1 applic Q12HR TOPICAL 12/09/16 11:15 12/11/16 21:37 (Pill Splitter) 1 ea UNSCH PRN OTHER 12/09/16 11:30 (Msir) 15 mg Q4H PRN PO 12/10/16 01:15 12/11/16 04:34 (Msir) 30 mg Q4H PRN PO 12/10/16 01:15 12/10/16 08:54 (SEROquel) 25 mg BID@09,12 PO 12/12/16 09:00 (Haldol Inj) 1 mg Q8H PRN IM 12/11/16 16:45 A/P Assessment and Plan 1. Pneumonia in ER was given Azactam and Vancomycin, he is allergic to Penicillin, blood cultures negative added Bronchodilator, Mucolytic and incentive spirometry will continue present care by now. Echocardiogram from 12/02 EF 65%, Prosthetic AVR, mild MItral regurgitation LA mildly dilated, RV dilated with RV dysfunction,was treated with Levaquin until 12/07/16 new CXR taken yesterday gave Bilateral Mostly airspace disease similar to December 03. patient without fever, no leukocytosis, no signs of infection, his states he has green sputum will continue pulmonary toilet. but no antibiotics at this time. 2. Sepsis secondary to #1. No Leukocytosis no signs of infection at this time. 3. Metabolic Encephalopathy Improved, may have had Delirium and component of Dementia Neurology specialist followed - EEG with diffuse mild theta slowing consistent with a mild diffuse encephalopathy. his states he continue with Encephalopathy not seen that in my evaluation, asked for Psychiatric evaluation. probable Delirium may explain his last conduct from yesterday when was Aggressive with his and nurse. recommended for Seroquel and Lexapro his asked to remove this medicines, are worsening his case. 4. CAD status post CABG and history of Bioprosthetic AVR asked for Cardiology Pre Op. Severe Pulmonary Hypertension, recommended Stress test versus Cardiac cath his prefer Cardiac Cath. 5. chronic lower extremity edema at this time improved. 6. Dysphagia he was re evaluated by Speech therapy recommended for Mechanical soft and [facility] [facility] consistency liquids. CT Focal airspace disease posterior segment left upper lobe and patchy airspace disease in the lower lobes most characteristic of bronchopneumonia. There is also underlying basilar pulmonary fibrosis with mild honeycombing at the right lung base. 7. Acute renal injury Improved. 8. Abdominal rash on Calamine and Loratadine. 9. Thoracic Spine Moderate degenerative disc disease in the thoracic spine with mild Kyphosis No canal or significant foraminal stenosis, no cord impingements. on Cervical spine C3-C4 focal moderate stenosis from degenerative disc disease with mild flattening of the cord, Mild bilateral foraminal encroachment Asked for Lumbar MRI. - MRI Brain (12/06) --> Moderate periventricular white matter small vessel ischemic changes bilaterally. Mild cerebral atrophy. Air within the right globe. No acute infarct, acute hemorrhage, mass effect or extra axial fluid collections. Mucosal thickening within the left maxillary and ethmoid sinuses. Significant spinal stenosis at C3-4 which is incompletely evaluated on this examination. - Pt will need SNF placement at the end of this hospitalization - DVT prophylaxis with SCDs. discussed in the room with patient and his Mrs. Umanzor also nurse Miss Meade appreciated. all questions answered. to the best of my abilities. Discharge Planning Not yet cleared for discharge by Specialists. Tho Mcpherson MD Dec 12, 2016 07:56 Tho Mcpherson MD Dec 12, 2016 07:56
[2016-12-12] MEDS: RESP: ALBUTEROL 2.5 MG/IPRATROPIUM 0.5 MG NEB (SCH) NEB ×3 (08:19→17:32)
[2016-12-12] MEDS: EPLERENONE 25 MG TAB PO SCH (08:39)
[2016-12-12] MEDS: guaiFENesin E.R. 600 MG TAB PO SCH ×2 (08:39→21:37)
[2016-12-12] MEDS: LORATADINE 10 MG TAB PO SCH (08:39)
[2016-12-12] MEDS: SODIUM CHLORIDE 0.9% FLUSH 10 ML FLUSH IV FLUSH SCH ×2 (08:40→21:00)
[2016-12-12] MEDS: ESCITALOPRAM OXALATE 20 MG TAB PO SCH (08:40)
[2016-12-12] MEDS: QUEtiapine FUMARATE 25 MG TAB PO SCH ×2 (08:40→13:01)
[2016-12-12] MEDS: DOCUSATE SODIUM 100 MG CAP PO SCH ×2 (08:40→21:37)
[2016-12-12] MEDS: TOBRAMYCIN 0.3%/DEXAMETHASONE 0.1% OPHT SUSP 5 ML BTL RIGHT EYE SCH ×3 (08:42→18:00)
[2016-12-12] MEDS: CALAMINE/PRAMOXINE LOTION 180 ML BTL TOPICAL SCH ×2 (08:42→21:38)
[2016-12-12] MEDS: SODIUM CHLOR 0.45% 1000 ML INJ 1,000 ML IV SCH ×2 (08:43→21:38)
[2016-12-12] MEDS: MORPHINE SULFATE 15 MG TAB PO PRN ×2 (08:53→23:37)
--- NOTE | 2016-12-12 11:41 | RADRPT ---
EXAM DATE/TIME: 12/12/2016 10:42 [place] COMPARISON: No previous studies available for comparison. INDICATIONS : Radiculopathy. MEDICAL HISTORY : Diabetes mellitus type 2. Hypertension. SURGICAL HISTORY : CABG Aortic valve . ENCOUNTER: Subsequent ACUITY: 2 day PAIN SCORE: 4/10 LOCATION: back TECHNIQUE: Multiplanar multisequence MRI of the lumbar spine was performed without contrast. FINDINGS: Sagittal images demonstrate normal vertebral body alignment and curvature. No focal areas of marrow r eplacement are identified. The conus terminates normally. Axial images were performed from T12-L1 thr ough L5-S1. There is a hemangioma in the vertebral body at L4. T12-L1: No significant abnormalities identified. L1-L2: No significant abnormalities identified. L2-L3: No significant abnormalities identified. L3-L4: There is no evidence of disc protrusion or spinal canal stenosis. There is mild facet arthritis bilat erally. L4-L5: There is broad-based annular bulge of disc. There is moderate facet arthritis bilaterally with ligame ntum flavum hypertrophy. There is moderate spinal canal stenosis. There is moderate neural foraminal narrowing on the left. L5-S1: There is no evidence of disc protrusion or spinal canal stenosis. There is mild facet arthritis bilat erally. CONCLUSION: 1. 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 Mode Washington MD on December 12, 2016 at 11:36 Board Certified Radiologist. This report was verified electronically.
--- NOTE | 2016-12-12 13:18 | MB ---
cc: IRMA LINARES MD DATE OF CONSULTATION: 12/12/2016 REASON FOR CONSULTATION Preoperative clearance. HISTORY OF PRESENT ILLNESS This is a 70-year-old gentleman who initially presents back to [facility] with altered mental status. He has a complex recent past medical history with recent hospitalization for retinal detachment followed by rehab and was admitted for what looks like hypokalemia with mental status changes. He has prior history of heart disease. He had a bypass surgery back in 2003 followed by a bioprosthetic aortic valve replacement in 2013. He has a history of congestive heart failure and pulmonary hypertension. He had seen Dr. Couch in the past. His is at the bedside to corroborate history. He has been rather sedentary this year. Denies any enly angina but he has had physical therapy and some difficulty with following commands and ambulation. He also had significant lower extremity edema and was put on torsemide and they thought that he may have been over diuresed in the outpatient setting which ultimately caused his dehydration and representation to the ER. He has been treated with antibiotics for pneumonia and sepsis. He was seen by neurosurgery and MRI of the cervical and lumbar spine was ordered which showed focal moderate stenosis and degenerative disc disease at C3-C4 with moderate to marked stenosis at L4-L5 with associated facet arthritis and moderate left foraminal narrowing. We are consulted for preoperative clearance, although it is not well-documented in the notes as to what surgery may be planned and the timing of such. PAST MEDICAL HISTORY 1. As mentioned above. 2. History of coronary artery disease with bypass surgery, 3. Congestive heart failure. 4. Pulmonary hypertension. 5. Aortic valve replacement. 6. COPD. ALLERGIES 1. BACTRIM. 2. PENICILLIN. 3. TRAMADOL. SOCIAL HISTORY Denies alcohol, tobacco or drug use. REVIEW OF SYSTEMS A 12-point review of systems was performed and negative unless otherwise noted in the history of present illness. PHYSICAL EXAMINATION VITAL SIGNS: Temperature 98, pulse 86, blood pressure 116/68 mmHg. GENERAL: The patient is alert, in no distress. HEENT: Pupils are reactive to light and accommodation. Extraocular movements are intact. NECK: No jugular venous distention. No thyromegaly. No lymphadenopathy. No carotid bruits. LUNGS: Clear to auscultation bilaterally. CARDIOVASCULAR: Regular rate and rhythm. 2/6 systolic murmur. No rubs or gallops. ABDOMEN: Nontender, nondistended. Good bowel sounds. No hepatosplenomegaly. EXTREMITIES: No clubbing, cyanosis or edema. LABORATORY WBC 8.9, hemoglobin 15.7, platelet count 134. INR is 1.2. Sodium 137, potassium 3.8, BUN 14, creatinine 0.88. ASSESSMENT 1. Preoperative clearance. 2. Coronary artery disease, bypass, AVR. PLAN The patient has a rather sedentary recent lifestyle and so does not generate for metabolic equivalents. He has a history of coronary artery disease and bypass surgery. No recent ischemic evaluation. His last echocardiogram showed normal bioprosthetic aortic valve and normal ejection fraction but severe pulmonary hypertension and cor pulmonale. This is likely the cause of his lower extremity edema. Fluid status will need to be monitor closely perioperatively. Preoperatively given his intermediate risk surgery and he does not generate appropriate cardiac workload he would need a Lexiscan prior to any surgical intervention. Therefore, if after discussion with the family there is intention to proceed with a surgical procedure will need to do a Lexiscan. If not then will continue with the current medical management approach and he can follow-up with Dr. Couch in an outpatient setting. MD JENNIFER Ching/CHRISTOPHER /12:55 PM /1:04 PM
[2016-12-13] VITALS (8 sets, daily range): BP systolic 102–161; BP diastolic 58–85; PULSE 80–103; RESP 17–24; TEMP 97.1–99.8; O2SAT 90–93
[2016-12-13] MEDS: MORPHINE SULFATE 15 MG CONTROLLED RELEASE TAB PO SCH ×3 (05:45→22:03)
[2016-12-13] MEDS: TOBRAMYCIN 0.3%/DEXAMETHASONE 0.1% OPHT SUSP 5 ML BTL RIGHT EYE SCH ×3 (09:00→18:39)
[2016-12-13] MEDS: SODIUM CHLORIDE 0.9% FLUSH 10 ML FLUSH IV FLUSH SCH ×2 (09:00→21:00)
[2016-12-13] MEDS ORDERED: LACTULOSE SYRUP 20 GM/30 ML CUP PO ONE (10:00)
--- NOTE | 2016-12-13 10:08 | HHI.PR ---
Subjective Remarks This is a pleasant 70 y/o Male who was brought in by his due to Acute encephalopathy, he complaint of headache, and confusion, also had productive cough, denied Chest pain, or shortness of breath, no abdominal pain, no focal weakness no numbness, he had a fall before coming to ER, as we know he has Hypertension, DM II diet controlled, CAD status post CABG, CHF by history, he is been hospitalized and given antibiotics for Pneumonia. 12/09 His Mrs. Umanzor in the room, will continue recommendations performed by Speech Therapy specialist for feeding. 12/10 Seen in his bedroom in the presence of his she states he has Cervical Compression and is producing him back pain, bilateral foot drop, he is Lethargic secondary to Morphine given. 12/11 Stable seen in his bedroom, seen in the presence of his Mrs. Umanzor also nurse Miss Meade present all the time while I was in the room, his insist he has foot drop, also some Encephalopathy, when I talked with the patient he is Alert and oriented, had some Respiratory insufficiency, he was given Pain medicine and Haldol during the night also placed on Restraints, at this time recommended to remove Restraints at this time and was done, also not to continue with Haldol. 12/12 Seen in his bedroom in the presence of his Mrs. Umanzor also nurse Miss Meade appreciated, patient stable no complaint for me alert and oriented on evaluation as per his he was confused during the night, seen by Psychiatry specialist, Delirium is been highlighted, recommended Seroquel 25 mg BID and Haldol as needed, his asked to remove this medicines, as discussed with Neurosurgery Doctor Home asked for Pre Op evaluation asked for materials specialist, in a patient with CAD, Bypass surgery, AVR, No recent ischemic evaluation, Severe Pulmonary Hypertension Lower extremity edema, will need an Stress test versus Cardiac Cath his asking for Cardiac Cath. 12/13 His complaint of fever discussed with nurse Miss Juarez she did not found Fever on all measurements performed and different thermometers, showing me green sputum, but no signs of infection will increase his Bronchodilators to every four hours and also Incentive spirometry. awaiting final recommendations by specialists. Objective Vital Signs Date Time Temp Pulse Resp B/P Pulse Ox O2 Delivery O2 Flow Rate FiO2 12/13/16 08:00 99.8 95 24 149/81 92 12/13/16 04:00 99.6 102 18 161/85 90 12/13/16 00:00 99.6 96 18 149/82 90 12/12/16 20:32 94 Nasal Cannula 5.00 12/12/16 20:00 97.7 90 18 98/51 93 12/12/16 16:00 99.3 87 18 113/58 96 12/12/16 12:00 98.9 94 18 139/80 94 I/O 12/12/16 12/12/16 12/12/16 12/13/16 12/13/16 12/13/16 07:00 15:00 23:00 07:00 15:00 23:00 Intake Total 1218 ml 1917 ml Balance 1218 ml 1917 ml IV Total 1218 ml 1917 ml # Voids 4 6 3 3 Result Diagram: 12/10/16210912/10/16 0650 Imaging Last Impressions Lumbar Spine MRI 12/12/16 0000 Signed Impressions: Service Date/Time: Monday, December 12, 2016 10:42 - CONCLUSION: 1. Hdjhehta-cv-lrrlmv stenosis at L4-L5 with associated facet arthritis and moderate left-sided foraminal narrowing. Mode Washington MD Thoracic Spine MRI 12/10/16 0000 Signed Impressions: Service Date/Time: Saturday, December 10, 2016 15:05 - CONCLUSION: 1. Moderate degenerative disc disease in the thoracic spine with mild kyphosis. No canal or significant foraminal stenosis. No cord impingement. Pravin Gerard MD Chest X-Ray 12/10/16 0000 Signed Impressions: Service Date/Time: Saturday, December 10, 2016 21:35 - CONCLUSION: 1. Bilateral mostly basilar airspace disease similar to December 03. Previous median sternotomy. Pravin Gerard MD Cervical Spine MRI 12/10/16 0000 Signed Impressions: Service Date/Time: Saturday, December 10, 2016 15:05 - CONCLUSION: 1. At C3-4 there is focal moderate stenosis from degenerative disc disease with mild flattening of the cord. Mild bilateral foraminal encroachment. 2. At C4-5 there is mild canal stenosis and foraminal encroachment. 3. No fracture or spondylolisthesis. Moderate to severe degenerative disc disease throughout the cervical cord. 1. Pravin Gerard MD Abdomen X-Ray 12/08/16 0800 Signed Impressions: Service Date/Time: Thursday, December 08, 2016 08:37 - CONCLUSION: Interval improvement with less stool. Eddie Cabrera MD FACR Brain MRI 12/05/16 0000 Signed Impressions: Service Date/Time: Monday, December 05, 2016 19:34 - CONCLUSION: 1. Moderate periventricular white matter small vessel ischemic changes bilaterally. 2. Mild cerebral atrophy. 3. Air within the right globe. 4. No acute infarct, acute hemorrhage, mass effect or extra axial fluid collections. 5. Mucosal thickening within the left maxillary and ethmoid sinuses. 6. Significant spinal stenosis at C3-4 which is incompletely evaluated on this examination. Joseph Mendosa MD Chest CT 12/03/16 0000 Signed Impressions: Service Date/Time: Saturday, December 03, 2016 19:49 - CONCLUSION: 1. Focal airspace disease posterior segment left upper lobe and patchy airspace disease in the lower lobes most characteristic of bronchopneumonia. 2. There is also underlying basilar pulmonary fibrosis with mild honeycombing at the right lung base. Chronic basilar pleural thickening also present. 3. Coronary disease status post CABG. Pravin Gerard MD Head CT 12/01/162110 Signed Impressions: Service Date/Time: Thursday, December 01, 2016 21:37 - CONCLUSION: No acute intracranial findings. Rohit Parker MD Procedures No procedures performed Other Results Laboratory Tests Test 12/09/16 12/10/16 12/10/16 05:40 06:50 21:10 Phosphorus Level 3.5 MG/DL Magnesium Level 2.8 MG/DL Total Bilirubin 0.9 MG/DL Aspartate Amino Transf 17 U/L (AST/SGOT) Alanine Aminotransferase 25 U/L (ALT/SGPT) Alkaline Phosphatase 75 U/L Total Protein 6.3 GM/DL Albumin 2.7 GM/DL Sodium Level 137 MEQ/L Potassium Level 3.8 MEQ/L Chloride Level 95 MEQ/L Carbon Dioxide Level 36.2 MEQ/L Anion Gap 6 MEQ/L Blood Urea Nitrogen 14 MG/DL Creatinine 0.88 MG/DL Estimat Glomerular Filtration 85 ML/MIN Rate Random Glucose 88 MG/DL Calcium Level 8.5 MG/DL White Blood Count 8.9 TH/MM3 Red Blood Count 5.28 MIL/MM3 Hemoglobin 15.7 GM/DL Hematocrit 47.9 % Mean Corpuscular Volume 90.6 FL Mean Corpuscular Hemoglobin 29.8 PG Mean Corpuscular Hemoglobin 32.9 % Concent Red Cell Distribution Width 16.2 % Platelet Count 134 TH/MM3 Mean Platelet Volume 9.0 FL Neutrophils (%) (Auto) 78.3 % Lymphocytes (%) (Auto) 4.7 % Monocytes (%) (Auto) 11.9 % Eosinophils (%) (Auto) 4.5 % Basophils (%) (Auto) 0.6 % Neutrophils # (Auto) 7.0 TH/MM3 Lymphocytes # (Auto) 0.4 TH/MM3 Monocytes # (Auto) 1.1 TH/MM3 Eosinophils # (Auto) 0.4 TH/MM3 Basophils # (Auto) 0.1 TH/MM3 CBC Comment DIFF FINAL Differential Comment Objective Remarks GENERAL: No apparent distress. SKIN: Abdominal rash. scaly areas in his face. HEAD: Atraumatic. Normocephalic. No temporal or scalp tenderness. EYES: Pupils equal round and reactive. Extraocular motions intact. No scleral icterus. No injection or drainage. ENT: No lymphadenopathy. NECK: Trachea midline. No JVD or lymphadenopathy. Supple, nontender, no meningeal signs. CARDIOVASCULAR: Regular rate and rhythm without murmurs, gallops, or rubs. RESPIRATORY: Decrease breath sounds, no crackles of wheezing. GASTROINTESTINAL: Abdomen soft, non-tender, nondistended. MUSCULOSKELETAL: Extremities without clubbing, cyanosis, or edema. trophic changes. no edema. NEUROLOGICAL: Alert and oriented x 3. Medications and IVs Current Medications Medications (Trade) Dose Ordered Sig/Guerrero Route Start Time Stop Time Status Last Admin (Zofran Inj) 4 mg Q6H PRN IV 12/01/16 23:00 (Tylenol) 650 mg Q4H PRN PO 12/01/16 23:00 12/11/16 19:32 (NS Flush) 2 ml BID IV FLUSH 12/02/16 09:00 12/12/16 08:40 (NS Flush) 2 ml UNSCH PRN IVF 12/01/16 23:00 (Inspra) 25 mg DAILY PO 12/02/16 09:00 12/12/16 08:39 (Tobradex Opth Susp) 1 drop TID RIGHT EYE 12/03/16 13:00 12/12/16 18:00 (Colace) 100 mg BID PO 12/04/16 16:30 12/12/16 21:37 (Milk Of Magnjuana Liq) 30 ml DAILY PRN PO 12/04/16 16:30 12/07/16 09:13 (Dulcolax Ec) 10 mg DAILY PRN PO 12/04/16 16:30 12/07/16 09:13 (Oramorph Sr) 15 mg Q8HR PO 12/05/16 14:00 12/13/16 05:45 (Fleets Enema (Adult)) 133 ml DAILY PRN FL 12/06/16 12:00 12/06/16 13:46 Guaifenesin 600 mg 600 mg BID PO 12/08/16 21:00 12/12/16 21:37 (1/2 NS 1000 ml Inj) 1,000 ml @ 100 mls/hr Q10H IV 12/09/16 11:15 12/12/16 21:38 (Claritin) 5 mg DAILY PO 12/09/16 11:15 12/12/16 08:39 (Caladryl Lotion) 1 applic Q12HR TOPICAL 12/09/16 11:15 12/12/16 21:38 (Pill Splitter) 1 ea UNSCH PRN OTHER 12/09/16 11:30 (Msir) 15 mg Q4H PRN PO 12/10/16 01:15 12/12/16 23:37 (Msir) 30 mg Q4H PRN PO 12/10/16 01:15 12/10/16 08:54 A/P Assessment and Plan 1. Pneumonia in ER was given Azactam and Vancomycin, he is allergic to Penicillin, blood cultures negative added Bronchodilator, Mucolytic and incentive spirometry will continue present care by now. Echocardiogram from 12/02 EF 65%, Prosthetic AVR, mild MItral regurgitation LA mildly dilated, RV dilated with RV dysfunction,was treated with Levaquin until 12/07/16 new CXR taken yesterday gave Bilateral Mostly airspace disease similar to December 03. patient without fever, no leukocytosis, no signs of infection, his states he has green sputum will continue pulmonary toilet. but no antibiotics at this time. 2. Sepsis secondary to #1. No Leukocytosis no signs of infection at this time. 3. Metabolic Encephalopathy Improved, may have had Delirium and component of Dementia Neurology specialist followed - EEG with diffuse mild theta slowing consistent with a mild diffuse encephalopathy. his states he continue with Encephalopathy not seen that in my evaluation, asked for Psychiatric evaluation. probable Delirium may explain his last conduct from yesterday when was Aggressive with his and nurse. recommended for Seroquel and Lexapro his asked to remove this medicines, are worsening his case. 4. CAD status post CABG and history of Bioprosthetic AVR asked for Cardiology Pre Op. Severe Pulmonary Hypertension, recommended Stress test versus Cardiac cath his prefer Cardiac Cath. 5. chronic lower extremity edema at this time improved. 6. Dysphagia he was re evaluated by Speech therapy recommended for Mechanical soft and [place] consistency liquids. CT Focal airspace disease posterior segment left upper lobe and patchy airspace disease in the lower lobes most characteristic of bronchopneumonia. There is also underlying basilar pulmonary fibrosis with mild honeycombing at the right lung base. 7. Acute renal injury Improved. 8. Abdominal rash on Calamine and Loratadine. 9. Thoracic Spine Moderate degenerative disc disease in the thoracic spine with mild Kyphosis No canal or significant foraminal stenosis, no cord impingements. on Cervical spine C3-C4 focal moderate stenosis from degenerative disc disease with mild flattening of the cord, Mild bilateral foraminal encroachment Lumbar MRI Moderate to marked stenosis at L4-L5, with associated facet arthritis and Moderate left sided foraminal narrowing. - MRI Brain (12/06) --> Moderate periventricular white matter small vessel ischemic changes bilaterally. Mild cerebral atrophy. Air within the right globe. No acute infarct, acute hemorrhage, mass effect or extra axial fluid collections. Mucosal thickening within the left maxillary and ethmoid sinuses. Significant spinal stenosis at C3-4 which is incompletely evaluated on this examination. - Pt will need SNF placement at the end of this hospitalization - DVT prophylaxis with SCDs. discussed in the room with patient and his Mrs. Umanzor also nurse Miss Juarez appreciated. all questions answered. to the best of my abilities. Discharge Planning Not yet cleared for discharge by Specialists. Tho Mcpherson MD Dec 13, 2016 10:08
[2016-12-13] MEDS: LORATADINE 10 MG TAB PO SCH (10:14)
[2016-12-13] MEDS: guaiFENesin E.R. 600 MG TAB PO SCH ×2 (10:14→22:03)
[2016-12-13] MEDS: DOCUSATE SODIUM 100 MG CAP PO SCH ×2 (10:14→22:03)
[2016-12-13] MEDS: EPLERENONE 25 MG TAB PO SCH (10:14)
[2016-12-13] MEDS: CALAMINE/PRAMOXINE LOTION 180 ML BTL TOPICAL SCH ×2 (10:15→22:04)
[2016-12-13] MEDS: SODIUM CHLOR 0.45% 1000 ML INJ 1,000 ML IV SCH ×2 (10:30→15:15)
[2016-12-13] MEDS ORDERED: ARTIFICIAL TEARS OPTH SOLN 15 ML BTL EACH EYE PRN (13:30)
[2016-12-13] MEDS: MORPHINE SULFATE 30 MG TAB PO PRN (13:32)
[2016-12-13] MEDS: ACETAMINOPHEN 325 MG TAB PO PRN (14:44)
[2016-12-13] MEDS: RESP: ALBUTEROL 2.5 MG/IPRATROPIUM 0.5 MG NEB (SCH) NEB ×2 (15:18→19:30)
--- NOTE | 2016-12-13 15:46 | PD.CARD.PN ---
Subjective Subjective Remarks still confused no CP or SOB at bedside. She is frustrated with his current condition. Objective Medications Active Medications Artificial Tears (Tears Naturale Opth Soln) 1 drop Q4H PRN EACH EYE; Start 12/13 at 13:30 Lactulose (Lactulose Liq) 30 ml ONCE ONCE PO Last administered on 12/13/16t 10: 14; Admin Dose 30 ML; Start 12/13/16 at 10:00; Stop 12/13/16 at 10:02; Status DC Vital Signs / I&O Vital Signs Date Time Temp Pulse Resp B/P Pulse Ox O2 Delivery O2 Flow Rate FiO2 12/13/16 14:38 99.7 12/13/16 12:00 98.5 100 18 128/84 91 12/13/16 08:00 99.8 95 24 149/81 92 12/13/16 04:00 99.6 102 18 161/85 90 12/13/16 00:00 99.6 96 18 149/82 90 12/12/16 20:32 94 Nasal Cannula 5.00 12/12/16 20:00 97.7 90 18 98/51 93 12/12/16 16:00 99.3 87 18 113/58 96 I/O 12/12/16 12/12/16 12/12/16 12/13/16 12/13/16 12/13/16 07:00 15:00 23:00 07:00 15:00 23:00 Intake Total 1218 ml 1917 ml Balance 1218 ml 1917 ml IV Total 1218 ml 1917 ml # Voids 4 6 3 3 Physical Exam GENERAL: SKIN: Warm and dry. HEAD: Normocephalic. EYES: No scleral icterus. No injection or drainage. NECK: Supple, trachea midline. No JVD or lymphadenopathy. CARDIOVASCULAR: Regular rate and rhythm without murmurs, gallops, or rubs. RESPIRATORY: Breath sounds equal bilaterally. No accessory muscle use. GASTROINTESTINAL: Abdomen soft, non-tender, nondistended. MUSCULOSKELETAL: No cyanosis, or edema. BACK: Nontender without obvious deformity. No CVA tenderness. Imaging Last Impressions Lumbar Spine MRI 12/12/16 0000 Signed Impressions: Service Date/Time: Monday, December 12, 2016 10:42 - CONCLUSION: 1. Jfsnfavi-hm-volnwl stenosis at L4-L5 with associated facet arthritis and moderate left-sided foraminal narrowing. Mode Washington MD Thoracic Spine MRI 12/10/16 0000 Signed Impressions: Service Date/Time: Saturday, December 10, 2016 15:05 - CONCLUSION: 1. Moderate degenerative disc disease in the thoracic spine with mild kyphosis. No canal or significant foraminal stenosis. No cord impingement. Pravin Gerard MD Chest X-Ray 12/10/16 0000 Signed Impressions: Service Date/Time: Saturday, December 10, 2016 21:35 - CONCLUSION: 1. Bilateral mostly basilar airspace disease similar to December 03. Previous median sternotomy. Pravin Gerard MD Cervical Spine MRI 12/10/16 0000 Signed Impressions: Service Date/Time: Saturday, December 10, 2016 15:05 - CONCLUSION: 1. At C3-4 there is focal moderate stenosis from degenerative disc disease with mild flattening of the cord. Mild bilateral foraminal encroachment. 2. At C4-5 there is mild canal stenosis and foraminal encroachment. 3. No fracture or spondylolisthesis. Moderate to severe degenerative disc disease throughout the cervical cord. 1. Pravin Gerard MD Abdomen X-Ray 12/08/16 0800 Signed Impressions: Service Date/Time: Thursday, December 08, 2016 08:37 - CONCLUSION: Interval improvement with less stool. Eddie Cabrera MD FACR Brain MRI 12/05/16 0000 Signed Impressions: Service Date/Time: Monday, December 05, 2016 19:34 - CONCLUSION: 1. Moderate periventricular white matter small vessel ischemic changes bilaterally. 2. Mild cerebral atrophy. 3. Air within the right globe. 4. No acute infarct, acute hemorrhage, mass effect or extra axial fluid collections. 5. Mucosal thickening within the left maxillary and ethmoid sinuses. 6. Significant spinal stenosis at C3-4 which is incompletely evaluated on this examination. Joseph Mendosa MD Chest CT 12/03/16 0000 Signed Impressions: Service Date/Time: Saturday, December 03, 2016 19:49 - CONCLUSION: 1. Focal airspace disease posterior segment left upper lobe and patchy airspace disease in the lower lobes most characteristic of bronchopneumonia. 2. There is also underlying basilar pulmonary fibrosis with mild honeycombing at the right lung base. Chronic basilar pleural thickening also present. 3. Coronary disease status post CABG. Pravin Gerard MD Head CT 12/01/162110 Signed Impressions: Service Date/Time: Thursday, December 01, 2016 21:37 - CONCLUSION: No acute intracranial findings. Rohit Parker MD Assessment and Plan Assessment and Plan CAD CABG AVR mental status changes PNA PHTN limited functional capacity discussed options with . First, she is not interested in any surgical interventions at this time. Secondly, if at some point, they decide surgery is an option, he will need preoperative stress test otherwise, continue current medical care will sign off call with any further questions Anthony Mijares MD Dec 13, 2016 15:46
[2016-12-14] VITALS (7 sets, daily range): BP systolic 60–142; BP diastolic 60–81; PULSE 84–95; RESP 18–20; TEMP 97.4–100; O2SAT 91–96
[2016-12-14] MEDS: RESP: ALBUTEROL 2.5 MG/IPRATROPIUM 0.5 MG NEB (SCH) NEB ×5 (00:23→15:39)
[2016-12-14] MEDS: SODIUM CHLOR 0.45% 1000 ML INJ 1,000 ML IV SCH ×2 (01:15→11:15)
[2016-12-14] MEDS: ACETAMINOPHEN 325 MG TAB PO PRN ×2 (05:11→14:16)
[2016-12-14] MEDS: MORPHINE SULFATE 15 MG CONTROLLED RELEASE TAB PO SCH ×2 (05:12→13:30)
--- NOTE | 2016-12-14 10:19 | HHI.PR ---
Subjective Remarks Follow-up pneumonia, sepsis. Patient states that he feels better today. No pain currently. Discussed with patient and at bedside. Patient's states that she will only allow him to be discharged to [facility] rehabilitation. Objective Vitals Vital Signs Date Time Temp Pulse Resp B/P Pulse Ox O2 Delivery O2 Flow Rate FiO2 12/14/16 09:45 98.0 90 18 120/81 96 12/14/16 08:33 16 12/14/16 08:18 94 Nasal Cannula 4.00 12/14/16 04:00 100.0 84 20 108/64 91 12/14/16 00:00 97.4 84 18 108/68 94 12/13/16 20:00 97.1 80 17 102/58 93 12/13/16 19:30 92 Nasal Cannula 6.00 12/13/16 16:00 99.6 103 20 150/81 93 12/13/16 14:38 99.7 12/13/16 12:00 98.5 100 18 128/84 91 I/O 12/13/16 12/13/16 12/13/16 12/14/16 12/14/16 12/14/16 07:00 15:00 23:00 07:00 15:00 23:00 Intake Total 1917 ml 240 ml 659 ml Balance 1917 ml 240 ml 659 ml Intake Oral 240 ml IV Total 1917 ml 659 ml # Voids 3 4 1 2 # Bowel Movements 0 Result Diagram: 12/10/16 2110 12/10/16 0650 Imaging Last Impressions Lumbar Spine MRI 12/12/16 0000 Signed Impressions: Service Date/Time: Monday, December 12, 2016 10:42 - CONCLUSION: 1. Xvymkiue-sd-xdcaog stenosis at L4-L5 with associated facet arthritis and moderate left-sided foraminal narrowing. Mode Washington MD Thoracic Spine MRI 12/10/16 0000 Signed Impressions: Service Date/Time: Saturday, December 10, 2016 15:05 - CONCLUSION: 1. Moderate degenerative disc disease in the thoracic spine with mild kyphosis. No canal or significant foraminal stenosis. No cord impingement. Pravin Gerard MD Chest X-Ray 12/10/16 0000 Signed Impressions: Service Date/Time: Saturday, December 10, 2016 21:35 - CONCLUSION: 1. Bilateral mostly basilar airspace disease similar to December 03. Previous median sternotomy. Pravin Gerard MD Cervical Spine MRI 12/10/16 0000 Signed Impressions: Service Date/Time: Saturday, December 10, 2016 15:05 - CONCLUSION: 1. At C3-4 there is focal moderate stenosis from degenerative disc disease with mild flattening of the cord. Mild bilateral foraminal encroachment. 2. At C4-5 there is mild canal stenosis and foraminal encroachment. 3. No fracture or spondylolisthesis. Moderate to severe degenerative disc disease throughout the cervical cord. 1. Pravin Gerard MD Abdomen X-Ray 12/08/16 0800 Signed Impressions: Service Date/Time: Thursday, December 08, 2016 08:37 - CONCLUSION: Interval improvement with less stool. Eddie Cabrera MD FACR Brain MRI 12/05/16 0000 Signed Impressions: Service Date/Time: Monday, December 05, 2016 19:34 - CONCLUSION: 1. Moderate periventricular white matter small vessel ischemic changes bilaterally. 2. Mild cerebral atrophy. 3. Air within the right globe. 4. No acute infarct, acute hemorrhage, mass effect or extra axial fluid collections. 5. Mucosal thickening within the left maxillary and ethmoid sinuses. 6. Significant spinal stenosis at C3-4 which is incompletely evaluated on this examination. Joseph Mendosa MD Chest CT 12/03/16 0000 Signed Impressions: Service Date/Time: Saturday, December 03, 2016 19:49 - CONCLUSION: 1. Focal airspace disease posterior segment left upper lobe and patchy airspace disease in the lower lobes most characteristic of bronchopneumonia. 2. There is also underlying basilar pulmonary fibrosis with mild honeycombing at the right lung base. Chronic basilar pleural thickening also present. 3. Coronary disease status post CABG. Pravin Gerard MD Head CT 12/01/161 Signed Impressions: Service Date/Time: Thursday, December 01, 2016 21:37 - CONCLUSION: No acute intracranial findings. Rohit Parker MD Objective Remarks General: No acute distress. Heart: Regular rate and rhythm. No murmur. Lungs: Clear to auscultation bilaterally. No wheezes, rales, or rhonchi. Breathing is nonlabored. Abdomen: Soft, nontender, nondistended. Extremities: No lower extremity edema. Psych: Alert, answers questions appropriately. Procedures None Urinary Catheter: No Vascular Central Line Catheter: No A/P Problem List: (1) Altered mental status ICD Code: R41.82 Status: Acute (2) Pneumonia ICD Code: J18.9 Status: Acute (3) CHF (congestive heart failure) ICD Code: I50.9 Status: Chronic (4) CAD (coronary artery disease) ICD Code: I25.10 Status: Chronic (5) SIMBA (acute kidney injury) ICD Code: N17.9 Status: Acute Assessment and Plan 1. Pneumonia: Patient was given Azactam and vancomycin in the ER. Blood cultures are negative. Not currently on antibiotics. Continue bronchodilator, incentive spirometry. 2. Sepsis: Secondary to pneumonia. Resolved. No leukocytosis. Currently clinically improved. 3. Metabolic encephalopathy: Improved. Likely delirium with a component of dementia. Appreciate neurology recommendations. Appreciate psychiatry evaluation. Seroquel and Lexapro were added by psychiatry, however the patient' s requested that these be discontinued. 4. Coronary artery disease: Status post CABG, bioprosthetic aortic valve replacement. Appreciate cardiology recommendations. Would need Lexiscan stress test prior to any surgical procedures. 5. Chronic lower extremity edema with venous stasis: Stable. 6. Dysphagia: Appreciate speech therapy recommendations. Continue mechanical soft diet with nectar thickened liquids. 7. Acute kidney injury: Improved. 8. 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 No plans for surgery at this time. Patient would require cardiac clearance prior to surgery. 9. DVT prophylaxis: SCDs. Discharge Planning Plan for discharge to SNF. Arrangements have been made by case management. At this point, there is no surgical intervention planned. Patient will be medically clear for discharge today, however patient's is stating that she will not allow him to be discharged to a correction facility. She states that she will only allow discharge to [facility] inpatient rehabilitation. Problem Qualifiers (1) Pneumonia: Qualified Code: J18.1 - Pneumonia of right lower lobe due to infectious organism (2) CHF (congestive heart failure): Az Sam MD Dec 14, 2016 10:19
[2016-12-14] MEDS ORDERED: LORA-361 PO (10:23)
[2016-12-14] MEDS ORDERED: MSIR15 PO (10:23)
[2016-12-14] MEDS ORDERED: MORP1TAB24 PO (10:23)
[2016-12-14] MEDS ORDERED: DOCU1CAP39 PO (10:23)
[2016-12-14] MEDS ORDERED: IPRASOL NEB (10:23)
--- NOTE | 2016-12-14 10:24 | HHI.DCPOC ---
Discharge Care Plan Diagnosis: (1) Renal insufficiency (2) Sepsis (3) Pneumonia (4) CAD (coronary artery disease) (5) CHF (congestive heart failure) (6) Altered mental status (7) SIMBA (acute kidney injury) (8) Delirium due to another medical condition Goals to Promote Your Health * To prevent worsening of your condition and complications * To maintain your health at the optimal level Directions to Meet Your Goals Take your medications as prescribed Follow your dietary instruction Follow activity as directed Keep your appointments as scheduled Take your immunizations and boosters as scheduled If your symptoms worsen call your PCP, if no PCP go to Urgent Care Center or Emergency Room Smoking is Dangerous to Your Health. Avoid second hand smoke Call the 24-hour hour crisis hotline for domestic abuse at Az Sam MD Dec 14, 2016 10:23
[2016-12-14] MEDS: MORPHINE SULFATE 30 MG TAB PO PRN ×2 (11:14→17:44)
[2016-12-14] MEDS: DOCUSATE SODIUM 100 MG CAP PO SCH (11:15)
[2016-12-14] MEDS: EPLERENONE 25 MG TAB PO SCH (11:15)
[2016-12-14] MEDS: LORATADINE 10 MG TAB PO SCH (11:15)
[2016-12-14] MEDS: TOBRAMYCIN 0.3%/DEXAMETHASONE 0.1% OPHT SUSP 5 ML BTL RIGHT EYE SCH ×2 (11:15→13:23)
[2016-12-14] MEDS: guaiFENesin E.R. 600 MG TAB PO SCH (11:15)
[2016-12-14] MEDS: SODIUM CHLORIDE 0.9% FLUSH 10 ML FLUSH IV FLUSH SCH (11:17)
[2016-12-14] MEDS: CALAMINE/PRAMOXINE LOTION 180 ML BTL TOPICAL SCH (11:18)
[2016-12-14] MEDS: SOD PHOSPHATE/SOD BIPHOSPHATE (ADULT) ENEMA 133ML PR PRN (13:22)
--- NOTE | 2016-12-14 15:21 | RADRPT ---
EXAM DATE/TIME: 12/14/2016 14:31 [facility] COMPARISON: CHEST SINGLE AP, December 10, 2016, 21:35. INDICATIONS : Pneumonia. MEDICAL HISTORY : Diabetes mellitus type II. Hypertension SURGICAL HISTORY : CABG. Aortic valve. ENCOUNTER: Subsequent ACUITY: 4 - 6 days PAIN SCORE: 0/10 LOCATION: Bilateral chest FINDINGS: Abnormal. Increasing confluent infiltrates in the left mid and lower lung causing loss of delineatio n of the upper left heart border. There are persistent partially consolidative infiltrates at the ri ght base causing loss of delineation of the right hemidiaphragm. The heart is enlarged, similar to p rior. Prior median sternotomy with sternal wire sutures. CONCLUSION: Increasing consolidative infiltrates and left mid and lower lung and persistent infiltrates at the ri ght lung base. Alexander Sharif MD on December 14, 2016 at 15:19 Board Certified Radiologist. This report was verified electronically.
[2016-12-14] MEDS ORDERED: LEVA750T PO (15:44)
[2016-12-14 15:53] LABS: AUTOMATED NEUTROPHIL # 7.7 TH/MM3 (1.8-7.7); BASOPHIL # 0.1 TH/MM3 (0-0.2); BASOPHIL % 0.7 % (0.0-2.0); EOSINOPHIL # 0.3 TH/MM3 (0-0.4); EOSINOPHIL % 3.1 % (0.0-4.0); HEMATOCRIT 48.4 % (39.0-51.0); HEMO FLAGS DIFF FINAL; LYMPH % 5.5 % (9.0-44.0); LYMPHOCYTE # 0.5 TH/MM3 (1.0-4.8); MEAN CELL VOLUME 90.2 FL (80.0-100.0); MEAN CORPUSCULAR HEMOGLOBIN 29.5 PG (27.0-34.0); MEAN CORPUSCULAR HGB CONC 32.7 % (32.0-36.0); MONO % 13.4 % (0.0-8.0); NEUT % 77.3 % (16.0-70.0); PLATELET COUNT 133 TH/MM3 (150-450); RED BLOOD COUNT 5.36 MIL/MM3 (4.50-5.90); RED CELL DISTRIBUTION WIDTH 16.2 % (11.6-17.2)
[2016-12-14] MEDS ORDERED: LEVOFLOXACIN 750 MG TAB PO SCH (16:00)
[2016-12-14 16:10] LABS: BICARBONATE 23.7 MEQ/L (21.0-32.0); POTASSIUM 4.1 MEQ/L (3.5-5.1)
--- NOTE | 2016-12-17 16:42 | HHI.DS ---
Discharge Summary Admission Date Dec 01, 2016 at 22:52 Discharge Date: Dec 14, 2016 Admitting Diagnosis pneumonia. Sepsis. Renal insufficiency. (1) Altered mental status ICD Code: R41.82 (2) Pneumonia ICD Code: J18.9 (3) CHF (congestive heart failure) ICD Code: I50.9 (4) CAD (coronary artery disease) ICD Code: I25.10 (5) SIMBA (acute kidney injury) ICD Code: N17.9 Procedures None Brief History - From Admission 70-year-old male was brought in by his altered mental status. Patient started complaining of headache and confusion since last night. Patient started having a productive cough today. Patient states that headache is aching headache diffuse over the head. Patient denies any visual change. Patient recently had right eye surgery and has been putting atropine eyedrops to the right eye. Patient denies any chest pain or shortness of breath. Patient denies abdominal pain. Patient denies any focal weakness or numbness of extremity. Patient why states the patient fell yesterday. Patient has frequent fall recently. Patient on aspirin 81 mg daily. Patient denies history hypertension. Patient has history of diet-controlled diabetes. Patient denies any dyslipidemia. Patient has history of CAD status post CABG and aortic valve surgery. Patient has history of CHF and chronic leg swelling. Patient was advised to withhold Lasix for the past several days secondary to eye surgery. In er had chest xray suggesting pneumonia with some congestion bnp was normal and diuretic was on hold due to recent eye surgery. CBC/BMP: 12/14/16 1537 12/14/16 1537 Imaging Last Impressions Chest X-Ray 12/14/16 0000 Signed Impressions: Service Date/Time: December 14:31 - CONCLUSION: Increasing consolidative infiltrates and left mid and lower lung and persistent infiltrates at the right lung base. Alexander Sharif MD Lumbar Spine MRI 12/12/16 0000 Signed Impressions: Service Date/Time: Monday, December 12, 2016 10:42 - CONCLUSION: 1. Wabigacc-qh-mmnslq stenosis at L4-L5 with associated facet arthritis and moderate left-sided foraminal narrowing. Mode Washington MD Thoracic Spine MRI 12/10/16 0000 Signed Impressions: Service Date/Time: Saturday, December 10, 2016 15:05 - CONCLUSION: 1. Moderate degenerative disc disease in the thoracic spine with mild kyphosis. No canal or significant foraminal stenosis. No cord impingement. Pravin Gerard MD Cervical Spine MRI 12/10/16 0000 Signed Impressions: Service Date/Time: Saturday, December 10, 2016 15:05 - CONCLUSION: 1. At C3-4 there is focal moderate stenosis from degenerative disc disease with mild flattening of the cord. Mild bilateral foraminal encroachment. 2. At C4-5 there is mild canal stenosis and foraminal encroachment. 3. No fracture or spondylolisthesis. Moderate to severe degenerative disc disease throughout the cervical cord. 1. Pravin Gerard MD Abdomen X-Ray 12/08/16 0800 Signed Impressions: Service Date/Time: Thursday, December 08, 2016 08:37 - CONCLUSION: Interval improvement with less stool. Eddie Cabrera MD FACR Brain MRI 12/05/16 0000 Signed Impressions: Service Date/Time: Monday, December 05, 2016 19:34 - CONCLUSION: 1. Moderate periventricular white matter small vessel ischemic changes bilaterally. 2. Mild cerebral atrophy. 3. Air within the right globe. 4. No acute infarct, acute hemorrhage, mass effect or extra axial fluid collections. 5. Mucosal thickening within the left maxillary and ethmoid sinuses. 6. Significant spinal stenosis at C3-4 which is incompletely evaluated on this examination. Joseph Mendosa MD Chest CT 12/03/16 0000 Signed Impressions: Service Date/Time: Saturday, December 03, 2016 19:49 - CONCLUSION: 1. Focal airspace disease posterior segment left upper lobe and patchy airspace disease in the lower lobes most characteristic of bronchopneumonia. 2. There is also underlying basilar pulmonary fibrosis with mild honeycombing at the right lung base. Chronic basilar pleural thickening also present. 3. Coronary disease status post CABG. Pravin Gerard MD Head CT 12/01/16 2111 Signed Impressions: Service Date/Time: Thursday, December 01, 2016 21:37 - CONCLUSION: No acute intracranial findings. Rohit Parker MD PE at Discharge General: No acute distress. Heart: Regular rate and rhythm. No murmur. Lungs: Clear to auscultation bilaterally. No wheezes, rales, or rhonchi. Breathing is nonlabored. Abdomen: Soft, nontender, nondistended. Extremities: No lower extremity edema. Psych: Alert, answers questions appropriately. Hospital Course The patient was admitted for treatment of sepsis secondary to pneumonia. IV antibiotics were initiated. He was switched to oral Levaquin. He was continued on supplemental oxygen as well as bronchodilators. The patient developed worsening confusion. Neurology was consulted. MRI showed moderate periventricular white matter small vessel ischemic changes and mild cerebral atrophy. The patient's pain medications were adjusted and he showed improvement in his mental status. EEG was consistent with mild diffuse encephalopathy. The patient and his asked to change attending physicians. He was transferred from the [facility] hospitalist service to the [facility] service. Neurosurgery was consulted for evaluation of spinal stenosis. Cardiology was consulted for clearance prior to possible surgery. Psychiatry was consulted and the patient was started on Seroquel. The patient's asked that his psychiatric medications be discontinued. The patient did continue to improve throughout the hospitalization. Neurosurgery recommended nonoperative treatment at this time. The patient's oxygen requirement decreased. Repeat chest x-ray did show continued pneumonia. He was started back on Levaquin. He was felt to be stable for discharge and arrangements were made for discharge to SNF. Pt Condition on Discharge: Stable Discharge Disposition: Discharge to SNF Discharge Time: > 30 minutes Discharge Instructions DIET: Follow Instructions for: As Tolerated, No Restrictions Speech Therapy-Diet Recommends: Mechanical Soft, Linganore Thickened Liquids Activities you can perform: Regular-No Restrictions Follow up Referrals: Cardiology - 2 Weeks Neurosurgery - 2 Weeks PCP Follow-up - 2 Weeks New Medications: Levofloxacin (Levaquin) 750 Mg Tab 750 MG PO Q48H Infection #5 Ref 0 TAB Docusate Sodium (Dok) 100 Mg Cap 100 MG PO BID Constipation #20 CAP Ipratropium-Albuterol Neb (Duoneb) 0.5-2.5 Mg/3 Ml Neb 1 AMPULE NEB Q4HR NEB Dyspnea #20 ML Loratadine (Claritin) 10 Mg Tab 5 MG PO DAILY Allergies #30 TAB Morphine ER (Morphine ER) 15 Mg Tab 15 MG PO Q8HR Pain #10 Ref 0 TAB Morphine IR (Morphine IR) 15 Mg Tab 15 MG PO Q4H PRN PAIN 1-5 #12 Ref 0 TAB Continued Medications: Atropine Opth Drops (Atropine Opth Drops) 1% Soln 1 DROP RIGHT EYE TID Infection #2 Ref 0 ML Eplerenone (Eplerenone) 25 Mg Tab 25 MG PO DAILY #30 Ref 0 TAB Montelukast (Singulair) 5 Mg Chew Unknown Dose CHEW DAILY #30 Ref 0 TAB Torsemide (Torsemide) 20 Mg Tab 20 MG PO DAILY #30 Ref 0 TAB Discontinued Medications: Escitalopram (Escitalopram) 20 Mg Tab 20 MG PO DAILY #30 Ref 0 TAB Morphine ER (Ms Contin) 30 Mg Tab 30 MG PO TID Pain Management Ref 0 TAB Prasterone Powder (Dehydroepiandrosterone Powder) 1 Pow Pow 50 MG PO BID Prednisone (Prednisone) 10 Mg Tab 10 MG PO DAILY Ref 0 TAB Az Sam MD Dec 17, 2016 16:42
== END 2016-12-14 19:17 | DRG 871 ==
LOC: NEPE 21:00 → NEDA 22:52 → NEDH 12-02 03:28 → HOCA 12-02 04:37
PROVIDERS: ADMIT Family Medicine; ATTEND Family Medicine
DX: A41.9 Sepsis, unspecified organism (principal); G93.41 Metabolic encephalopathy; N17.9 Acute kidney failure, unspecified; J18.0 Bronchopneumonia, unspecified organism; I11.0 Hypertensive heart disease with heart failure; J44.0 Chronic obstructive pulmonary disease with (acute) lower respiratory infection; I50.9 Heart failure, unspecified; I27.2 Other secondary pulmonary hypertension; R13.10 Dysphagia, unspecified; F03.90 Unspecified dementia, unspecified severity, without behavioral disturbance, psychotic disturbance, mood disturbance, and anxiety; E11.9 Type 2 diabetes mellitus without complications; I34.0 Nonrheumatic mitral (valve) insufficiency; I45.19 Other right bundle-branch block; I25.10 Atherosclerotic heart disease of native coronary artery without angina pectoris; R51 Headache; K56.41 Fecal impaction; M48.06 Spinal stenosis, lumbar region; R29.6 Repeated falls; G89.29 Other chronic pain; M50.31 Other cervical disc degeneration, high cervical region; I27.81 Cor pulmonale (chronic); J84.10 Pulmonary fibrosis, unspecified; R04.0 Epistaxis; R21 Rash and other nonspecific skin eruption; M51.34 Other intervertebral disc degeneration, thoracic region; M48.02 Spinal stenosis, cervical region; M40.204 Unspecified kyphosis, thoracic region; I87.8 Other specified disorders of veins; F43.10 Post-traumatic stress disorder, unspecified; Z53.29 Procedure and treatment not carried out because of patient's decision for other reasons; Z78.1 Physical restraint status; Z79.82 Long term (current) use of aspirin; Z88.0 Allergy status to penicillin; Z88.2 Allergy status to sulfonamides; Z88.5 Allergy status to narcotic agent; Z95.1 Presence of aortocoronary bypass graft; Z95.3 Presence of xenogenic heart valve
CPT/HCPCS: 36600; 70450; 70551; 71010; 71020; 71250; 72141; 72146; 72148; 74000; 80048; 80053; 81001; 82140; 82550; 82607; 82746; 82805; 83605; 83735; 83880; 84100; 84439; 84443; 84484; 85025; 85610; 85730; 86592; 87040; 87804; 93005; 93306; 94150; 94640; 94664; 95819; 96361; 96365; 96375; J1630; J3370; J7030; J7050; J7512

== ENCOUNTER 2016-12-15 02:30 | Emergency (ER) | payer MEDICARE ==
[~2016-12-15] VITALS: Ht 177.8 cm; Wt 74.0 kg
[~2016-12-15 02:30] MED LIST changes: -ATROPINE SULFATE 1% OPHT SOLN 2 ML BTL ONE; -DEXAMETHASONE SOD PHOS 4 MG/ML VIAL ONE; -EPINEPHrine HCL (1:1000) 1 MG/ML VIAL ONE; -ESCI20TA PO; -FLURBIPROFEN 0.03% OPHT SOLN 2.5 ML BTL ONE; -LACTATED RINGER'S 1000 ML INJ 1,000 ML ONE; -MIDAZOLAM HCL 2 MG/2 ML VIAL ONE; -MS C30TA PO; -NEOMYCIN/POLYMYXIN/DEXAMETHASONE OPTH OINT 3.5 GM TUBE ONE; -ONDANSETRON HCL 4 MG/2 ML VIAL IV PUSH ONE; -PHENYLEPHRINE HCL 2.5% OPTH SOLN 2 ML BTL ONE; -PRED10 PO; -PROPOFOL 200 MG/20 ML AMP IV ONE; -SODIUM CHLORIDE 0.9% INJ 10 ML ONE; -TETRACAINE 0.5% OPTH SOLN 4 ML BTL ONE; -TRIAMCINOLONE ACETONIDE 40 MG/ML VIAL ONE; -TROPICAMIDE 1% OPHT SOLN 15 ML BTL ONE; -[UNRECOGNIZED DRUG - CODE] PO; -ceFAZolin INJ 1,000 MG VIAL ONE
[2016-12-15 02:37] VITALS: BP 120/71; PULSE 96; RESP 18; TEMP 97.9; O2SAT 89
--- NOTE | 2016-12-15 03:24 | RADRPT ---
EXAM DATE/TIME: 12/15/2016 02:48 [facility] COMPARISON: CHEST SINGLE AP, December 10, 2016, 21:35. CHEST SINGLE AP, December 14, 2016, 14:31. INDICATIONS : Shortness of breath. MEDICAL HISTORY : Diabetes mellitus type II. Hypertension SURGICAL HISTORY : CABG. Aortic valve replacement. ENCOUNTER: Initial ACUITY: 1 day PAIN SCORE: 0/10 LOCATION: chest FINDINGS: There is improvement in pulmonary edema since the prior examination with moderate mixed interstitial and alveolar process remaining bilaterally. The rest of the examination has not significantly changed . CONCLUSION: Improvement in pulmonary edema. Cristina Levy MD on December 15, 2016 at 3:22 Board Certified Radiologist. This report was verified electronically.
[2016-12-15 03:26] LABS: AUTOMATED NEUTROPHIL # 7.3 TH/MM3 (1.8-7.7); BASOPHIL # 0.1 TH/MM3 (0-0.2); BASOPHIL % 0.8 % (0.0-2.0); EOSINOPHIL # 0.4 TH/MM3 (0-0.4); HEMATOCRIT 49.3 % (39.0-51.0); LYMPH % 4.6 % (9.0-44.0); LYMPHOCYTE # 0.4 TH/MM3 (1.0-4.8); MEAN CELL VOLUME 89.8 FL (80.0-100.0); MEAN CORPUSCULAR HEMOGLOBIN 29.4 PG (27.0-34.0); MEAN CORPUSCULAR HGB CONC 32.8 % (32.0-36.0); NEUT % 74.6 % (16.0-70.0); PLATELET COUNT 139 TH/MM3 (150-450); RED BLOOD COUNT 5.49 MIL/MM3 (4.50-5.90); RED CELL DISTRIBUTION WIDTH 16.3 % (11.6-17.2); WHITE BLOOD COUNT 9.7 TH/MM3 (4.0-11.0)
[2016-12-15 03:28] LABS: HEMO FLAGS AUTO DIFF
--- NOTE | 2016-12-15 03:34 | PD ---
HPI Chief Complaint: Nosebleed Time Seen by Provider: 02:38 Travel History International Travel<30 days: No Contact w/Intl Traveler<30days: No Traveled to known affect area: No History of Present Illness HPI Is a 70-year-old male presents to the emergency department complaining of nosebleed. Previously evaluated for altered mental status and pneumonia. He was discharged to [facility] a couple days ago. He is on 4 L of oxygen. He is on a baby aspirin daily. He had one hour of nosebleed that resolved just prior to leaving. He reportedly was still since about this and wanted checked out. He is not having any bleeding now. Patient denies any complaints now. History Past Medical History Narrative Medical CAD, CABG CHF Chronic edema PTSD Diet-controlled diabetes Bovine aortic valve replacement Social History Alcohol Use: No Tobacco Use: No (quit 25 yrs ago) Allergies-Medications (Allergen,Severity, Reaction): Coded Allergies: Bactrim (Verified Allergy, Severe, 12/01/16) Penicillin (Verified Allergy, Severe, 12/01/16) Tramadol (Verified Allergy, Severe, 12/01/16) Reported Meds & Prescriptions Reported Meds & Active Scripts Active Levaquin (Levofloxacin) 750 Mg Tab 750 Mg PO Q48H Morphine IR (Morphine Sulfate) 15 Mg Tab 15 Mg PO Q4H PRN Morphine ER (Morphine Sulfate) 15 Mg Tab 15 Mg PO Q8HR Claritin (Loratadine) 10 Mg Tab 5 Mg PO DAILY Duoneb (Ipratropium-Albuterol Neb) 0.5-2.5 Mg/3 Ml Neb 1 Ampule NEB Q4HR NEB Dok (Docusate Sodium) 100 Mg Cap 100 Mg PO BID Reported Singulair (Montelukast Sodium) 5 Mg Chew Unknown Dose CHEW DAILY Torsemide 20 Mg Tab 20 Mg PO DAILY Eplerenone 25 Mg Tab 25 Mg PO DAILY Atropine Opth Drops 1% Soln 1 Drop RIGHT EYE TID Review of Systems Except as stated in HPI: all other systems reviewed are Neg Physical Exam Narrative GENERAL: 70-year-old man, sleepy, generally well-appearing. SKIN: Focused skin assessment warm/dry. HEAD: Atraumatic. Normocephalic. EYES: Pupils equal and round. No scleral icterus. No injection or drainage. ENT: Clotted blood in the right naris. No active bleeding. He has a nasal cannula in place. He has some dried blood in his mouth. NECK: Trachea midline. No JVD. CARDIOVASCULAR: Regular rate and rhythm. No murmur appreciated. RESPIRATORY: No accessory muscle use. Clear to auscultation. Breath sounds equal bilaterally. GASTROINTESTINAL: Abdomen soft, non-tender, nondistended. Hepatic and splenic margins not palpable. MUSCULOSKELETAL: No obvious deformities. No edema. Data Data Last Documented VS Vital Signs Date Time Temp Pulse Resp B/P Pulse Ox O2 Delivery O2 Flow Rate FiO2 12/15/16 04:00 76 16 111/74 93 Nasal Cannula 4 12/15/16 02:37 97.9 Orders Complete Blood Count With Diff (12/15/16 02:50) Prothrombin Time / Inr (Pt) (12/15/16 02:50) Act Partial Throm Time (Ptt) (12/15/16 02:50) Basic Metabolic Panel (Bmp) (12/15/16 02:50) Chest, Single Ap (12/15/16 ) Labs Laboratory Tests Test 12/15/16 02:40 White Blood Count 9.7 TH/MM3 Red Blood Count 5.49 MIL/MM3 Hemoglobin 16.2 GM/DL Hematocrit 49.3 % Mean Corpuscular Volume 89.8 FL Mean Corpuscular Hemoglobin 29.4 PG Mean Corpuscular Hemoglobin 32.8 % Concent Red Cell Distribution Width 16.3 % Platelet Count 139 TH/MM3 Mean Platelet Volume 11.2 FL Neutrophils (%) (Auto) 74.6 % Lymphocytes (%) (Auto) 4.6 % Monocytes (%) (Auto) 16.0 % Eosinophils (%) (Auto) 4.0 % Basophils (%) (Auto) 0.8 % Neutrophils # (Auto) 7.3 TH/MM3 Lymphocytes # (Auto) 0.4 TH/MM3 Monocytes # (Auto) 1.6 TH/MM3 Eosinophils # (Auto) 0.4 TH/MM3 Basophils # (Auto) 0.1 TH/MM3 CBC Comment AUTO DIFF Differential Total Cells 100 Counted Neutrophils % (Manual) 79 % Band Neutrophils % 3 % Lymphocytes % 4 % Monocytes % 11 % Eosinophils % 2 % Neutrophils # (Manual) 8.1 TH/MM3 Promyelocytes 1 % Differential Comment FINAL DIFF MANUAL Platelet Estimate LOW Platelet Morphology Comment NORMAL Ovalocytes 1+ Prothrombin Time 14.8 SEC Prothromb Time International 1.3 RATIO Ratio Activated Partial 37.5 SEC Thromboplast Time Sodium Level 136 MEQ/L Potassium Level 4.0 MEQ/L Chloride Level 102 MEQ/L Carbon Dioxide Level 25.3 MEQ/L Anion Gap 9 MEQ/L Blood Urea Nitrogen 10 MG/DL Creatinine 0.75 MG/DL Estimat Glomerular Filtration 103 ML/MIN Rate Random Glucose 102 MG/DL Calcium Level 8.7 MG/DL [facility] Medical Decision Making Medical Screen Exam Complete: Yes Emergency Medical Condition: Yes Interpretation(s) Chest x-ray: Improvement in pulmonary edema. LABS: CBC is remarkable for a platelet count 139. INR 1.3. BMP: Unremarkable. Differential Diagnosis Epistaxis, coagulopathy, other Narrative Course Medical decision-making 70-year-old man covering for pneumonia [facility] and developed epistaxis. Is on oxygen. This is likely the cause of his epistaxis. He is on humidified oxygen. There is no bleeding now. Is no other evidence of coagulopathy. We'll check labs. Actually levels are little bit low. We'll recheck x-ray. Likely discharge. Diagnosis Primary Impression: Epistaxis Additional Instructions: If you're nosebleed begins to bleed again, blow your nose to expel any clots. Pinch your nose together at the end. Hold it for a full 15 minutes. After 15 minutes, release of this is still bleeding hold it again for another full 15 minutes. Do this for a total of an hour. If it is still bleeding after that, return to the emergency department. Med/Other Pt SpecificInfo: No Change to Meds Disposition: 03 DISCHARGE TO SNF Condition: Stable Anthony Jacobson MD Dec 15, 2016 03:34
[2016-12-15 03:39] LABS: APTT (PATIENT) 37.5 SEC (24.3-30.1); INTERNATIONAL NORMALIZED RATIO 1.3 RATIO; PROTHROMBIN TIME - PATIENT 14.8 SEC (9.8-11.6)
[2016-12-15 04:00] VITALS: BP 111/74; PULSE 76; RESP 16; O2SAT 93
[2016-12-15 04:03] LABS: BANDS 3 % (0-6); EOSINOPHILS 2 % (0-4); NEUTROPHIL # MANUAL DIFF 8.1 TH/MM3 (1.8-7.7); POLYS (SEG NEUTROPHILS) 79 % (16-70); PROMYELOCYTES 1 % (0-0); WBC DIFF SAMPLE 100
[2016-12-15 04:04] LABS: PLATELET ESTIMATE SMEAR LOW (NORMAL); SCAN/DIFF FINAL DIFF MANUAL
[2016-12-15 04:05] LABS: OVALOCYTES 1+ (NORMAL)
[2016-12-15 04:06] LABS: PLATELET MORPHOLOGY NORMAL (NORMAL)
[2016-12-15 04:13] LABS: BICARBONATE 25.3 MEQ/L (21.0-32.0)
[2016-12-15 07:00] VITALS: BP 115/57; PULSE 77; RESP 17; O2SAT 98
== END 2016-12-15 08:00 ==
LOC: NEPC 02:30
DX: R04.0 Epistaxis (principal); E11.9 Type 2 diabetes mellitus without complications; Z99.81 Dependence on supplemental oxygen; Z79.82 Long term (current) use of aspirin; Z95.1 Presence of aortocoronary bypass graft; Z86.79 Personal history of other diseases of the circulatory system; Z86.59 Personal history of other mental and behavioral disorders
CPT/HCPCS: 71010; 80048; 85007; 85027; 85610; 85730